=== PATIENT | female | born 1960 | race Caucasian/White ===

== ENCOUNTER 2021-09-29 08:34 | Outpatient (REF) | payer OTHER, SELFPAY | END 2021-09-29 08:35 | disposition home or self-care (01) | LOC: HO.LAB 08:34 | PROVIDERS: Visit Provider Hospitalist | DX: N39.0 Urinary tract infection, site not specified (principal) | CPT/HCPCS: 87086 ==

== ENCOUNTER 2021-11-24 14:06 | Outpatient (REF) | payer OTHER, SELFPAY ==
--- NOTE | ~2021-11-24 | MM_ITS ---
EXAMINATION: MM SCREENING DIGITAL BREAST TOMOSYNTHESIS, BILATERAL CLINICAL INFORMATION: Screening. Asymptomatic. Status post left breast lumpectomy and removal of left breast implant. Right breast reduction surgery. COMPARISON: Mammography: November 29, 2017 and studies dating back to November 25, 2015 TECHNIQUE: Digital breast tomosynthesis is performed in both the craniocaudal and mediolateral oblique views along with computer-aided detection (CAD). Synthesized 2D images are generated from the tomosynthesis. FINDINGS: There are scattered areas of fibroglandular density (ACR BI-RADS breast composition Category b). There are no new suspicious significant masses, abnormal calcifications, or other abnormalities. Postsurgical change is noted bilaterally. Status post left lumpectomy. MM/MM tomosynthesis screening BI IMPRESSION: There are no significant changes from prior study. ASSESSMENT: BI-RADS 2: Benign RECOMMENDATION: Routine annual mammography screening. This patient's information was entered into a reminder system with a target due date for their next mammogram.
== END 2021-11-24 14:07 | disposition home or self-care (01) ==
LOC: HO.MAMMO 14:06
PROVIDERS: Visit Provider Hospitalist
DX: Z12.31 Encounter for screening mammogram for malignant neoplasm of breast (principal)
CPT/HCPCS: 77063; 77067

== ENCOUNTER → 2022-07-21 12:23 | Outpatient (BNVA) | payer OTHER, SELFPAY | PROVIDERS: PCP Hospitalist; Referring Provider Hospitalist; Visit Provider Internal Medicine Gastroenterology | DX: K21.9 Gastro-esophageal reflux disease without esophagitis (principal) ==

== ENCOUNTER 2022-07-27 08:19 | Outpatient (REF) | payer OTHER, SELFPAY ==
[2022-07-27 11:11] LABS: INTERNATIONAL NORM RATIO 0.9 (0.9-1.1); Prothrombin Time 10.5 SEC (10.0-13.1)
[2022-07-27 12:03] LABS: Alanine Aminotransferase 24 U/L (0-31); Albumin Level 4.3 g/dL (3.5-5.0); Alkaline Phosphatase 134 U/L (39-117); Aspartate Amino Transferase 18 U/L (5-31); Bilirubin Direct < 0.2 mg/dL (0.0-0.5); Bilirubin Total 0.4 mg/dL (0.0-1.0); Gamma Glutamyl Transpeptidase 31 U/L (7-33); Total Protein 6.4 g/dL (6.5-8.0)
[2022-07-29 11:24] LABS: Mitochondrial Antibodies NEGATIVE (NEGATIVE)
[2022-07-29 17:24] LABS: Prot Elec - Albumin 4.1 g/dL (3.8-4.8); Prot Elec - Alpha1 0.3 g/dL (0.2-0.3); Prot Elec - Alpha2 0.7 g/dL (0.5-0.9); Prot Elec - Beta 1 0.4 g/dL (0.4-0.6); Prot Elec - Beta 2 0.3 g/dL (0.2-0.5); Prot Elec - Gamma 0.7 g/dL (0.8-1.7); Prot Elec - Total Protein 6.4 g/dL (6.1-8.1)
[2022-07-31 03:04] LABS: Angiotensin Converting Enzyme 19.9 U/L (9-67)
[2022-07-31 05:23] LABS: Alk.Phos Iso. Macrohepatic 0 % (<=0); Alk.Phos Isoenzymes Bone 36 % (28-66); Alk.Phos Isoenzymes Intest 15 % (1-24); Alk.Phos Isoenzymes Liver 49 % (25-69); Alk.Phos Isoenzymes Placental 0 % (<=0); Alk.Phos Isoenzymes Total 122 U/L (37-153)
== END 2022-07-27 08:20 | disposition home or self-care (01) ==
LOC: HO.WFDLDS 08:19
PROVIDERS: Visit Provider Internal Medicine Gastroenterology
DX: R74.8 Abnormal levels of other serum enzymes (principal)
CPT/HCPCS: 36415; 80076; 82164; 82977; 84080; 84165; 85610; 86255; 86256

== ENCOUNTER 2022-08-19 13:00 | Outpatient (REF) | payer OTHER, SELFPAY ==
--- NOTE | ~2022-08-19 | US_ITS ---
EXAMINATION: US ABDOMEN COMPLETE CLINICAL INFORMATION: Abnormal levels of other serum enzymes. COMPARISON: No prior imaging was available for comparison. TECHNIQUE: Real-time imaging of the abdominal viscera. FINDINGS: PANCREAS: Visualized portions of the pancreas are unremarkable. The pancreatic tail is obscured by bowel gas. ABDOMINAL AORTA: The proximal, mid, and distal segments are normal in caliber. INFERIOR VENA CAVA: Visualized portions are normal. LIVER: The liver is normal in size. The liver contour is normal. There is diffuse increased liver parenchymal echogenicity, consistent with infiltrative hepatocellular disease. There are several hyperechoic liver lesions the largest measuring 5.3 cm in the right hepatic lobe. There is no intrahepatic biliary duct dilatation seen. GALLBLADDER: Negative sonographic Calhoun sign. The gallbladder is physiologically distended. Multiple mobile gallstones are present. No evidence of gallbladder wall thickening or pericholecystic fluid. COMMON BILE DUCT: Normal in caliber measuring 0.6 cm in diameter. RIGHT KIDNEY: Normal. No hydronephrosis. No renal calculi or focal parenchymal lesions. The kidney measures 10.5 cm in maximum dimension. LEFT KIDNEY: 2 circumscribed echogenic subcentimeter renal lesions measuring up to 0.9 cm which may reflect angiomyolipomas. No hydronephrosis or renal calculi. The kidney measures 10.4 cm in maximum dimension. SPLEEN: A 1 cm echogenic avascular splenic lesion possibly a hemangioma. The spleen measures 12.0 cm in maximum dimension. FREE FLUID: None. US/US abdomen complete IMPRESSION: Several hypoechoic liver lesions measuring up to 5.3 cm in the right hepatic lobe, incompletely characterized sonographically. Recommend further evaluation with contrast enhanced MR abdomen. Cholelithiasis without evidence of acute cholecystitis. A 1 cm echogenic avascular splenic lesion, possibly hemangioma. Attention on follow-up MR, although this may remain too small to definitively characterize. 2 circumscribed echogenic left renal lesions which may reflect small angiomyolipomas. The report will be called to the ordering clinician by a [facility] Physician Development Trainer.
== END 2022-08-19 13:01 | disposition home or self-care (01) ==
LOC: HO.US 13:00
PROVIDERS: PCP Hospitalist; Visit Provider Internal Medicine Gastroenterology
DX: R74.8 Abnormal levels of other serum enzymes (principal)
CPT/HCPCS: 76700

== ENCOUNTER 2022-09-14 11:27 | Outpatient (REF) | payer OTHER, SELFPAY | END 2022-09-14 11:28 | disposition home or self-care (01) | LOC: HO.LNP 11:27 | PROVIDERS: Visit Provider Hospitalist | DX: N39.0 Urinary tract infection, site not specified (principal) | CPT/HCPCS: 87086; 87088; 87186 ==

== ENCOUNTER 2022-09-19 10:49 | Day surgery (SDC) | payer OTHER, SELFPAY ==
[2022-09-14 11:38] VITALS: BMI 30.4
--- NOTE | 2022-09-16 11:59 | HO.ANESPROP2 ---
Documented by User: Margarita Vasquez NP 09/16/22 12:06 HPI - Anesthesia Eval Consult details Narrative: 62yo F for Upper Endoscopy and Colonoscopy Recent UTI symptoms with C Walk In visit 09/16/22. T/C to patient, symptoms resolved PMFSH Active Problems Active Problems: All Active Problems (Updated 09/14/22 @ 09:15 by Toya Alcaraz NP) Recurrent UTI (Acute) Cavernous hemangioma of liver (Acute) Insulin resistance (Acute) GERD (gastroesophageal reflux disease) (Acute) Elevated alkaline phosphatase level (Acute) Encounter for colorectal cancer screening (Acute) Normal physical exam (Acute) History of recurrent UTIs (Acute) Screening due (Acute) UTI (urinary tract infection) (Acute) Vitamin D deficiency (Acute) Asthma (Acute) Back pain (Acute) Past Medical History Medical History Asthma Back pain Breast cancer Skin cancer Uterine cancer Family History Family History Mother Non-Hodgkin lymphoma Surgical History Surgical History (Updated 09/19/22 @ 11:14 by Mya Patel) H/O colonoscopy H/O: hysterectomy History of lumpectomy of left breast Social History Social History Household Members: Spouse Housing: House Alcohol intake: former Patient Tobacco Use Status: Never used Tobacco e-Cigarette/Vaping Use: Never Used Second Hand Smoke Exposure: No Use of substances other than those prescribed or required for medical reasons: No Are you DNR?: No Advance Directives: No Advance Directives Information Provided: Yes Current occupational status: retired Current occupational exposures/hazards: No Cognitive needs: No Hearing needs: No Vision needs: No Meds Allergies Allergy/AdvReac Type Severity Reaction Status Date / Time shellfish derived AdvReac Mild Hives Verified 09/19/22 11:17 Exam Exam Date and Time: September 16, 2022 1159 Height,Weight and Vital Signs: Height 5 ft 3 in Weight 78.018 kg Assessment and Plan Assessment Anesthesia Assessment: Chart Reviewed Documented by User: Arlene Elias MD 09/19/22 11:46 PMF Past Medical History Medical History Asthma Back pain Breast cancer Skin cancer Uterine cancer Family History Family History Mother Non-Hodgkin lymphoma Family history of problems with anesthesia: No Surgical History Surgical History (Updated 09/19/22 @ 11:14 by Mya Patel) H/O colonoscopy H/O: hysterectomy History of lumpectomy of left breast History of Problems with Anesthesia: No Social History Social History Household Members: Spouse Housing: House Alcohol intake: former Patient Tobacco Use Status: Never used Tobacco e-Cigarette/Vaping Use: Never Used Second Hand Smoke Exposure: No Use of substances other than those prescribed or required for medical reasons: No Are you DNR?: No Advance Directives: No Advance Directives Information Provided: Yes Current occupational status: retired Current occupational exposures/hazards: No Cognitive needs: No Hearing needs: No Vision needs: No Meds Allergies Allergy/AdvReac Type Severity Reaction Status Date / Time shellfish derived AdvReac Mild Hives Verified 09/19/22 11:17 Exam Airway Mallampati Class: II TM Dist: >3cm Neck ROM: Full Heart: rrr Lungs: cta Assessment and Plan Assessment Anesthesia Assessment: Anesthesia Plan Discussed Final Anesthetic Review Family History of Problems with Anesthesia: No History of Problems with Anesthesia: No NPO: Yes ASA Class: II Final Preanesthetic Review: No Changes in Pt Med Stat, Meds/Allgs Chart Reviewed and Consent Obtained/Reviewed Patient Risk: Intermediate Procedure Risk: Intermediate Anesthetic Plan Anesthetic Plan: MAC: Disposition: Standard PACU
[2022-09-19 11:17] VITALS: BP 133/76; PULSE 72; RESP 16; TEMP 36.5; O2SAT 98; BMI 29.2
[2022-09-19] MEDS: Lactated Ringers 1,000 ML 100 ML IVCONT (11:36)
--- NOTE | 2022-09-19 12:26 | MHC.SHP ---
Pre-Procedural Eval Section A Date of Service: 09/19/22 The patient is an INPATIENT: No The History & Physical has been completed within 30 days and I have reviewed it.: No Section B Chief Complaint: Screening,gerd, Details of Present Illness: colon cancer screening, GERD Relevant Family History (Specify if Yes): Yes Relevant Social History: None Present Medications: see Short Stay Collaborative assessment Medical History: Significant History (Asthma Back pain Breast cancer Skin cancer Uterine cancer) History of Previous Operations: Relevant previous surgery/procedure and date(s) (H/O: hysterectomy History of lumpectomy of left breast) Allergies: Allergies Allergy/AdvReac Type Severity Reaction Status Date / Time shellfish derived AdvReac Mild Hives Verified 09/19/22 11:17 Review of Systems Sugical H&P ROS: Negative: Constitution, Cardiovascular, Respiratory and Gastrointestinal Exam Surgical H&P Exam: Normal: Heart, Normal: Lungs, Normal: Extremities and Normal: Abdomen Plan Diagnosis/Plan: Unchanged I have reviewed the history and physical and performed a pertinent physical examination on my patient. No changes have occurred unless specified. Time Spent With Patient Time: Total time managing care of this patient today ____ minutes.
--- NOTE | 2022-09-19 12:38 | W.PM.OPN ---
Operative Note Operative Note Date of Service: 09/19/22 Narrative: FLEXIBLE TRANSORAL UPPER GASTROINTESTINAL ENDOSCOPY WITH BIOPSIES AND COLONOSCOPY TILL CECUM WITH SNARE POLYPECTOMY, SUBMUCOSAL INJECTION AND HEMOCLIP PLACEMENT Pre-op diagnosis: Colon cancer screening, hx of colon polyps, GERD Post-op diagnosis:?GERD, gastritis, colon polyps, diverticulosis, hemorrhoids Endoscopist:? Jasmina Mueller MD Anesthesia:?MAC UPPER ENDOSCOPY Consent: Indications for the procedure and potential complications of bleeding, perforation, reaction to medications and missed diagnosis were discussed with the patient and informed consent was obtained. Instrument: Olympus GIF H 190 mid size upper endoscope Monitoring: Vital signs and clinical assessment, continuous EKG monitoring, Pulse oximetry, Carbon Dioxide monitoring and blood pressure monitoring were done throughout the procedure. Procedure: The patient was placed in the left lateral decubitis position and pre-procedure medications were administered and a bite block was placed. The endoscope was inserted into the mouth and advanced under direct vision to the third part of duodenum. A careful inspection was made as the upper endoscope was withdrawn including a retroflexed examination of the proximal stomach; Findings and interventions are described below. Findings: Larynx: Normal Esophagus: GE junction at 35 cms. No Montero's. Edematous folds just distal to the GEJ on the gastric side likely due to mild esophagitis - biopsied. Stomach: Mild diffuse gastric erythema with a few linear erosions in the antrum. Biopsies were obtained. Grade 2 flap valve on retroflexed examination of the cardia. Duodenum: Normal bulb and descending duodenum. Biopsies were obtained from 3rd part of the duodenum to check for celiac sprue Intervention: Biopsies as noted above COLONOSCOPY PROCEDURE NOTE Consent: Indications for the procedure and potential complications of bleeding, perforation, reaction to medications and missed diagnosis were discussed with the patient and informed consent was obtained. Instrument: Olympus PCF H 190 L variable stiffness pediatric colonoscope Monitoring: Vital signs and clinical assessment, intermittent blood pressure monitoring, continuous EKG monitoring, Pulse oximetry and Carbon Dioxide monitoring were done throughout the procedure. Colon withdrawl time was 30 minutes. Procedure: The patient was placed in the left lateral decubitis position and pre-procedure medications were administered. After a digital rectal examination of the ano-rectum, the video colonoscope was inserted into the rectum and advanced through the colon to the cecum. The colonoscope was slowly withdrawn in a retrograde panoramic fashion and the colon mucosa was carefully examined including a retroflexed view of the rectum. Findings and interventions are described below. Procedure Difficulty: colon was long and tortuous and there was some loop formation - no maneuvers were required Findings: Terminal Ileum: Not evaluated Cecum: Normal Ascending Colon: A 3 x 2.5 cms flat polyp in the distal AC - raised with 5 cc of [place] and removed with a hot stiff snare. Polypectomy site was closed with 1 hemoclip and marked with Keri ink Transverse Colon: A 3 x 2.5 cms flat polyp at 110 cms raised with 5 cc of [place] and removed with a hot stiff snare. Polypectomy site was closed with 1 hemoclip in marked with Keri ink A 2nd 3.5 x 3 cms flat polyp at 110 cms. Polyp raised with 8 cc of [place]view and removed piecemeal with a stiff snare. Polypectomy site was closed with 2 hemoclips and marked by Keri ink Descending Colon: Normal Sigmoid Colon: Moderate diverticulosis Rectum: Normal Ano-rectum: Moderate internal hemorrhoids Colon preparation: Good Impression and Post Procedure Diagnosis: Endoscopy Findings: STOMACH: Mild diffuse gastric erythema with a few linear erosions in the antrum. Biopsies were obtained. DUODENUM: Normal - biopsied to check for celiac sprue Colonoscopy Findings: Three large sized polyps removed Moderate diverticulosis seen in the sigmoid colon Moderate hemorrhoids on retroflexed exam. Plan: Await pathology results Patient has an appointment on 10/20/22 in the GI Clinic with Jasmina Mueller M.D. Repeat Colonoscopy interval based on path results - in 6 months to check polypectomy site if polyps are adenomatous and 5 years if polyps are hyperplastic (due to a hx of colon polyps). Above findings were reviewed with the patient and GERD, colon polyps and diverticulosis handouts were given in the discharge area
[2022-09-19 13:45] VITALS: BP 103/56; PULSE 81; RESP 20; TEMP 36.6; O2SAT 96
[2022-09-19 14:00] VITALS: BP 104/57; PULSE 76; RESP 20; O2SAT 99
[2022-09-19 14:15] VITALS: BP 115/59; PULSE 78; RESP 16; TEMP 36.4; O2SAT 99
--- NOTE | 2022-09-19 16:49 | PM.OP ---
Brief Operative Note Date of Service: 09/19/22 Pre-op diagnosis: Colon cancer screening, GERD Post-op diagnosis: other (GERD, gastritis, colon polyps, diverticulosis, hemorrhoids) Procedure: FLEXIBLE TRANSORAL UPPER GASTROINTESTINAL ENDOSCOPY WITH BIOPSIES AND COLONOSCOPY TILL CECUM WITH SNARE POLYPECTOMY, SUBMUCOSAL INJECTION AND HEMOCLIP PLACEMENT Surgeon: Jasmina Mueller MD Anesthesia: MAC Was an Film Developing Machine Operator used for this Procedure?: Yes Film Developing Machine Operator: Zainab Alonso Estimated blood loss (mL): 2 Pathology: other (A. small bowel bxs, R/O celiac B. gastric antrum bxs, R/O H, pylori C. gastric body bxs D. G-E junction bxs, R/O Montero's esophagus E. transverse colon polyp F. ascending col) Condition: stable Disposition: PACU
== END 2022-09-19 14:43 | disposition home or self-care (01) ==
PROVIDERS: PCP Hospitalist; Visit Provider Internal Medicine Gastroenterology
PROC: (CPT 45385; principal; 2022-09-19 12:35)
DX: Z12.11 Encounter for screening for malignant neoplasm of colon (principal); Z86.010 Personal history of colon polyps; D12.2 Benign neoplasm of ascending colon; D12.3 Benign neoplasm of transverse colon; K57.30 Diverticulosis of large intestine without perforation or abscess without bleeding; K64.8 Other hemorrhoids; K21.9 Gastro-esophageal reflux disease without esophagitis; K29.50 Unspecified chronic gastritis without bleeding; J45.909 Unspecified asthma, uncomplicated; M54.9 Dorsalgia, unspecified; Z85.3 Personal history of malignant neoplasm of breast; Z85.828 Personal history of other malignant neoplasm of skin; Z85.42 Personal history of malignant neoplasm of other parts of uterus; Z79.899 Other long term (current) drug therapy; Z79.84 Long term (current) use of oral hypoglycemic drugs
CPT/HCPCS: 45385; 45381; 43239; 88305; 88342

== ENCOUNTER 2022-10-24 13:35 | Outpatient (REF) | payer OTHER, SELFPAY ==
--- NOTE | ~2022-10-24 | MR_ITS ---
EXAMINATION: MRI ABDOMEN WITH AND WITHOUT CONTRAST CLINICAL INFORMATION: D18.03 - Hemangioma of intra-abdominal structures COMPARISON: 08/19/2022 ultrasound TECHNIQUE: Multiple routine MRI sequences through the abdomen were obtained on a high-field 1.5Tesla MRI. Pre-and postcontrast images with 7.5 mL of Gadavist intravenous contrast were obtained. This included a dynamic contrast-enhanced technique. FINDINGS: Lung bases: The visualized lung bases are unremarkable. Fat-containing right-sided Bochdalek diaphragmatic hernia noted.. Small hiatal hernia. Liver: The liver demonstrates diffuse fatty infiltration liver with areas of focal fatty sparing surrounding diffusely T2 bright peripheral nodular enhancing hemangiomas that demonstrate gradual progressive enhancement this includes a 5.1 cm hemangioma in the lateral segment 2 and 3 of the liver, the 2.8 cm subcapsular hemangioma in segment 8 the liver laterally, the tiny 0.9 cm hemangioma in the posterior segment 7, the 3.5 cm hemangioma in the central segment 7, the 1.1 cm hemangioma centrally in segment 3, the 2.9 cm hemangioma in segment 4 abutting the falciform ligament and additional scattered subcentimeter T2 bright probable hemangiomas in the inferior right lobe the liver. I do not appreciate any suspicious hepatic lesions otherwise. No biliary ductal dilatation. Gallbladder: Multiple gallstones seen within the partially contracted but otherwise unremarkable gallbladder. No gallbladder wall thickening or pericholecystic inflammatory changes. Pancreas: Pancreas is homogeneous in signal. No pancreatic ductal dilatation or obstruction. No peripancreatic inflammatory changes or fluid. Spleen: T2 bright tiny splenic cysts incidentally noted Adrenals: Unremarkable Kidneys: Kidneys are normal in size, shape, and signal. No suspicious renal mass lesion seen. No hydronephrosis or perinephric edema. Other: No bulky adenopathy MR/MR abdomen wo/w con IMPRESSION: Diffuse fatty infiltration of the liver with multiple hepatic hemangiomas as described above. I do not appreciate any suspicious hepatic lesions otherwise.
== END 2022-10-24 13:36 | disposition home or self-care (01) ==
LOC: HO.MRI 13:35
PROVIDERS: PCP Hospitalist; Visit Provider Internal Medicine Gastroenterology
DX: D18.03 Hemangioma of intra-abdominal structures (principal)
CPT/HCPCS: 74183; A9585

== ENCOUNTER 2022-11-28 10:21 | Outpatient (REF) | payer OTHER, SELFPAY ==
--- NOTE | ~2022-11-28 | MM_ITS ---
EXAMINATION: MM SCREENING DIGITAL BREAST TOMOSYNTHESIS, BILATERAL CLINICAL INFORMATION: Status post left breast lumpectomy, removal of left breast implant, and contralateral right reduction surgery. Due for yearly. COMPARISON: Mammography: 11/24/2021; outside mammography 11/26/2020, 11/26/2019, 10/26/2018 ([place], [place]). TECHNIQUE: Digital breast tomosynthesis is performed in both the craniocaudal and mediolateral oblique views along with computer-aided detection (CAD). Synthesized 2D images are generated from the tomosynthesis. FINDINGS: There are scattered areas of fibroglandular density (ACR BI-RADS breast composition Category b). There is minor bilateral scarring similar to prior exam. There is no developing density or significant mass or interval architectural abnormality. No abnormal calcifications. The axilla are unremarkable. No significant changes. MM/MM tomosynthesis screening BI IMPRESSION: No mammographic evidence of malignancy. ASSESSMENT: BI-RADS 2: Benign RECOMMENDATION: Routine annual mammography screening. This patient's information was entered into a reminder system with a target due date for their next mammogram.
== END 2022-11-28 10:22 | disposition home or self-care (01) ==
LOC: HO.MAMMO 10:21
PROVIDERS: PCP Hospitalist; Visit Provider Hospitalist
DX: Z12.31 Encounter for screening mammogram for malignant neoplasm of breast (principal)
CPT/HCPCS: 77063; 77067

== ENCOUNTER 2023-01-04 08:53 | Outpatient (AMB) | payer OTHER, SELFPAY ==
--- NOTE | 2023-01-04 08:55 | MHC.PC.OV ---
Vital Signs 01/04/23 08:57 Height 5 ft 3 in Weight 167 lb 4 oz BMI 29.6 BP 98/64 Blood Pressure Location Lt brachial Position Sitting Respiration 12 Pulse 91 Pulse Source Pulse Oximeter Temp 97.9 F Temp Source Temporal Artery Scan Pulse Oximetry (%) 98 Oxygen Delivery Method Room Air Intake Visit Reasons: 4 wks wt mgmt Intake Note: Patient needs a refill on Ozempic. 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 Accompanied by: Self / Same As Patient Allergies shellfish derived Adverse Reaction (Mild, Verified 01/04/23 09:15) Hives Medication List - Last Reconciled 01/04/23 by Adrian Rocha CNP albuterol sulfate 90 mcg/actuation 1 puff inhalation Q4H PRN ergocalciferol (vitamin D2) 1,250 mcg PO QWEEK 1 month famotidine 20 mg PO BEDTIME 30 days metformin 500 mg PO BID semaglutide (Ozempic) 0.25 mg (0.4 mL) subcut QWEEK 4 weeks Tobacco use date assessed: 01/04/23 Dental Screening Dental Screen Date: 01/04/23 Did you have a dental visit in the last 12 months?: Yes Did you have a dental problem in the last 6 months where you did not have access to dental care?: No Was dental information given to patient?: Patient has dentist HPI HPI Comments History of Present Illness Details 62-year-old female presents for with management follow-up. She requested with management during her last visit. She started using Ozempic last month. She is happy that she has lost 3 lb since starting Ozempic. Her goal is to lose 20-30 lb. She swims and walks for exercise. No acute symptoms today. [facility] Medical History Asthma Back pain Breast cancer Skin cancer Type 2 diabetes mellitus Uterine cancer Surgical History H/O colonoscopy H/O: hysterectomy History of esophagogastroduodenoscopy (EGD) History of lumpectomy of left breast Family History Mother Non-Hodgkin lymphoma Social History Household Members: Spouse Housing: House Alcohol intake: former Patient Tobacco Use Status: Never used Tobacco e-Cigarette/Vaping Use: Never Used Second Hand Smoke Exposure: No service: No Current occupational status: retired Current occupational exposures/hazards: No Cognitive needs: No Hearing needs: No Vision needs: No Questionnaire Thrive Questionnaire Date Thrive assessed: 09/05/22 JUDY-7 AMB Questionnaire JUDY-7 Date JUDY - 7 assessed: 09/05/22 Source: Developed by Drs. Silverio Dooley, Yani Hull, Adonis Umanzor and colleagues, with an educational emma from [employer]. Review of Systems Const Details: Const Denies chills, Denies fatigue, Denies fever(s), Denies headache(s) and Denies weakness ENT Denies dizziness and Denies headache(s) Card Denies chest pain, Denies lightheadedness, Denies dyspnea and Denies other (Palpitations) Resp Denies cough, Denies dyspnea, Denies wheezing and Denies other ( shortness of breath) GI Denies abdominal pain, Denies melena, Denies hematochezia, Denies change in bowel habits, Denies dyspepsia and Denies nausea Denies hematuria and Denies dysuria Musc Denies abnormal gait, Denies myalgias, Denies arthralgias, Denies numbness and Denies tingling Skin/Breast Denies rash, Denies unusual bruising and Denies wounds Neuro Denies abnormal gait, Denies dizziness, Denies headache(s), Denies memory loss, Denies numbness, Denies Sensory deficit (Neuro), Denies tingling and Denies weakness Psych Denies anxiety and Denies depression Endo Denies fatigue Aller/Immun Denies wheezing Physical exam (Primary Care) Vital Signs: Last Vital Signs Temp 97.9 F 01/04/23 08:57 Pulse 91 01/04/23 08:57 Resp 12 01/04/23 08:57 BP 98/64 01/04/23 08:57 Pulse Ox 98 01/04/23 08:57 Oxygen Delivery Method Room Air 01/04/23 08:57 BMI result Body Mass Index 29.6 Tobacco/Smoking Status: Tobacco use Status Tobacco use date assessed 01/04/23 01/04/23 09:05 Patient Tobacco Use Status Never used Tobacco 01/04/23 09:05 e-Cigarette/Vaping Use Never Used 01/04/23 09:05 Thrive Assessment: Date of Thrive Assessment Date Thrive assessed 09/05/22 01/04/23 09:05 Const Other: General: no acute distress and well developed Nutritional Appearance: well nourished Orientation/consciousness: patient oriented x3 HENMT Head: Yes normocephalic and Yes atraumatic Eyes General: appearance normal, both eyes and all related structures Pupils: Equal, round and reactive pupils present EOM: EOMs intact bilaterally Resp Effort & Inspection: normal respiratory effort Auscultation: clear to auscultation bilaterally Cardio Rate: regular rate Rhythm: regular rhythm Heart sounds: S1 normal heart sound present, S2 normal heart sound present, no gallops, no murmurs and no rubs GI Palpation (GI): No Abdominal aortic bruit present, Soft to palpation, nontender, No hepatosplenomegaly present and No Rebound tenderness present Auscultation: normal bowel sounds General: Yes no CVA tenderness Back/Spine/Pelvis Back: no CVA tenderness Cervical Spine: cervical ROM normal and No Cervical spine tenderness Thoracic/Lumbar Spine: thoraco-lumbar ROM normal, No pain with thoraco-lumbar ROM, No thoracic spinal tenderness and No lumbar spinal tenderness Extrem General: Yes normal to inspection, No edema and No calf tenderness Skin General: warm and dry. Normal skin color. Normal skin turgor Lesions: no lesions Rashes: no rashes Trauma: no lacerations or abrasions Wounds: no wounds Nails: normal Neuro General: patient oriented x3, gait normal and no focal neuro deficit Cranial nerves: Yes Equal, round and reactive pupils present Cognition (Neuro): normal cognition Gait exam (Neuro): Normal gait present Sensory Exam: No Sensory deficit (Neuro) Psych Affect: normal affect Assessment and Plan Assessment & Plan (1) Encounter for weight management: Code(s): Z76.89 - Persons encountering health services in other specified circumstances Plan: She lost 3 lb since statin Ozempic Continue with current dose as prescribed Routine exercise encouraged Follow-up in 3 weeks or return sooner with concerns or symptoms She has an appointment schedule for physical exam next month. Labs ordered Verbalized understanding and agreed with treatment plan (2) Laboratory tests ordered as part of a complete physical exam (CPE): Code(s): Z00.00 - Encounter for general adult medical examination without abnormal findings Plan: Fasting labs ordered as part of a complete physical exam. Advised to fast for at least 10 hours before getting labs drawn. May drink water Verbalized understanding and agreed with treatment plan. Orders: Orders Complete Blood Count Auto Diff Today Z00.00 - Encounter for general adult medical examination without abnormal findings Comprehensive [place]. Panel Fast Today Z00.00 - Encounter for general adult medical examination without abnormal findings Lipid Panel Today Z00.00 - Encounter for general adult medical examination without abnormal findings TSH reflex Free T4 Today Z00.00 - Encounter for general adult medical examination without abnormal findings Vitamin D 25-OH Total Today Z00.00 - Encounter for general adult medical examination without abnormal findings UA CC w/rflx Micro + Cult Today Z00.00 - Encounter for general adult medical examination without abnormal findings Coding Level of Care Code Est Pt Level 3 (50182) Diagnoses Encounter for weight management Z76.89 Laboratory tests ordered as part of a complete physical exam (CPE) Z00.00 Time Spent (min) 25
[2023-01-04 08:57] VITALS: BP 98/64; PULSE 91; RESP 12; TEMP 36.6; O2SAT 98; BMI 29.6
== END 2023-01-04 09:35 | disposition home or self-care (01) ==
PROVIDERS: PCP Hospitalist; Visit Provider Nurse Practitioner Family
DX: Z76.89 Persons encountering health services in other specified circumstances (principal); Z00.00 Encounter for general adult medical examination without abnormal findings
CPT/HCPCS: 99213

== ENCOUNTER 2023-01-16 15:21 | Outpatient (AMB) | payer OTHER, SELFPAY ==
--- NOTE | 2023-01-16 15:27 | A.OFFPC_ITS ---
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 Required: No Accompanied by: Self / Same As Patient Allergies shellfish derived Adverse Reaction (Mild, Verified 01/16/23 15:48) Hives Medication List - Last Reconciled 01/16/23 by Adrian Rocha CNP albuterol sulfate 90 mcg/actuation 1 puff inhalation Q4H PRN ergocalciferol (vitamin D2) 1,250 mcg PO QWEEK 1 month famotidine 20 mg PO BEDTIME 30 days metformin 500 mg PO BID semaglutide (Ozempic) 0.25 mg (0.4 mL) subcut QWEEK 4 weeks Tobacco use date assessed: 01/04/23 Dental Screening Dental Screen Date: 01/16/23 Did you have a dental visit in the last 12 months?: Yes Did you have a dental problem in the last 6 months where you did not have access to dental care?: No Was dental information given to patient?: Patient has dentist HPI HPI Comments History of Present Illness Details 62-year-old female presents for with management follow-up.She requested with management during her last visit.? She is on Ozempic for weight management. She lost an additional 3 lb since her last visit. She has lost a total of 6 lb. Her goal is to lose 20-30 lb. She swims and walks for exercise. She notes she has been eating healthy. No acute symptoms today. [facility] Medical History Asthma Back pain Breast cancer Skin cancer Type 2 diabetes mellitus Uterine cancer Surgical History H/O colonoscopy H/O: hysterectomy History of esophagogastroduodenoscopy (EGD) History of lumpectomy of left breast Family History Mother Non-Hodgkin lymphoma Social History Household Members: Spouse Housing: House Alcohol intake: former Patient Tobacco Use Status: Never used Tobacco e-Cigarette/Vaping Use: Never Used Second Hand Smoke Exposure: No service: No Current occupational status: retired Current occupational exposures/hazards: No Cognitive needs: No Hearing needs: No Vision needs: No Questionnaire Thrive Questionnaire Date Thrive assessed: 09/05/22 JUDY-7 AMB Questionnaire JUDY-7 Date JUDY - 7 assessed: 09/05/22 Source: Developed by Drs. Silverio Dooley, Yani Hull, Adonis Umanzor and colleagues, with an educational emma from [employer]. Review of Systems Const Details: Const Denies chills, Denies fatigue, Denies fever(s), Denies headache(s) and Denies weakness ENT Denies dizziness and Denies headache(s) Card Denies chest pain, Denies lightheadedness, Denies dyspnea and Denies other (Palpitations) Resp Denies cough, Denies dyspnea, Denies wheezing and Denies other ( shortness of breath) GI Denies abdominal pain, Denies melena, Denies hematochezia, Denies change in bowel habits, Denies dyspepsia and Denies nausea Denies hematuria and Denies dysuria Musc Denies abnormal gait, Denies myalgias, Denies arthralgias, Denies numbness and Denies tingling Skin/Breast Denies rash, Denies unusual bruising and Denies wounds Neuro Denies abnormal gait, Denies dizziness, Denies headache(s), Denies memory loss, Denies numbness, Denies Sensory deficit (Neuro), Denies tingling and Denies weakness Psych Denies anxiety and Denies depression Endo Denies fatigue Aller/Immun Denies wheezing Physical exam (Primary Care) Vital Signs: Last Vital Signs Temp 98 F 01/16/23 15:28 Pulse 85 01/16/23 15:28 Resp 12 01/16/23 15:28 BP 124/70 01/16/23 15:28 Pulse Ox 97 01/16/23 15:28 Oxygen Delivery Method Room Air 01/16/23 15:28 BMI result Body Mass Index 29.0 Tobacco/Smoking Status: Tobacco use Status Tobacco use date assessed 01/04/23 01/16/23 15:37 Patient Tobacco Use Status Never used Tobacco 01/16/23 15:37 e-Cigarette/Vaping Use Never Used 01/16/23 15:37 Thrive Assessment: Date of Thrive Assessment Date Thrive assessed 09/05/22 01/16/23 15:37 Const Other: General: no acute distress and well developed Nutritional Appearance: well nourished Orientation/consciousness: patient oriented x3 [facility] Head: Yes normocephalic and Yes atraumatic Eyes General: appearance normal, both eyes and all related structures Pupils: Equal, round and reactive pupils present EOM: EOMs intact bilaterally Resp Effort & Inspection: normal respiratory effort Auscultation: clear to auscultation bilaterally Cardio Rate: regular rate Rhythm: regular rhythm Heart sounds: S1 normal heart sound present, S2 normal heart sound present, no gallops, no murmurs and no rubs GI Palpation (GI): No Abdominal aortic bruit present, Soft to palpation, nontender, No hepatosplenomegaly present and No Rebound tenderness present Auscultation: normal bowel sounds General: Yes no CVA tenderness Back/Spine/Pelvis Back: no CVA tenderness Cervical Spine: cervical ROM normal and No Cervical spine tenderness Thoracic/Lumbar Spine: thoraco-lumbar ROM normal, No pain with thoraco-lumbar ROM, No thoracic spinal tenderness and No lumbar spinal tenderness Extrem General: Yes normal to inspection, No edema and No calf tenderness Skin General: warm and dry. Normal skin color. Normal skin turgor Lesions: no lesions Rashes: no rashes Trauma: no lacerations or abrasions Wounds: no wounds Nails: normal Neuro General: patient oriented x3, gait normal and no focal neuro deficit Cranial nerves: Yes Equal, round and reactive pupils present Cognition (Neuro): normal cognition Gait exam (Neuro): Normal gait present Psych Affect: normal affect Assessment and Plan Assessment & Plan (1) Encounter for weight management: Code(s): Z76.89 - Persons encountering health services in other specified circumstances Plan: She lost 3 lb since her last visit. She has lost a total of 6 lb Continue with current dose of Ozempic as prescribed Routine exercise and healthy diet encouraged Advised to get fasting blood work done before next visit Follow-up in 1 month for a complete physical exam or return sooner with concerns or symptoms Verbalized understanding and agreed with treatment plan Medications: Refilled semaglutide (Ozempic) week 1-4 0.25 mg (0.4 mL) subcut QWEEK 4 weeks 1.6 mL 0RF Coding Level of Care Code Est Pt Level 3 (77525) Diagnoses Encounter for weight management Z76.89 Time Spent (min) 25
[2023-01-16 15:28] VITALS: BP 124/70; PULSE 85; RESP 12; TEMP 36.6; O2SAT 97; BMI 29.0
== END 2023-01-16 16:06 | disposition home or self-care (01) ==
PROVIDERS: PCP Hospitalist; Visit Provider Nurse Practitioner Family
DX: Z76.89 Persons encountering health services in other specified circumstances (principal)
CPT/HCPCS: 99213

== ENCOUNTER 2023-01-24 07:15 | Outpatient (REF) | payer OTHER, SELFPAY ==
[2023-01-24 11:23] LABS: MANUAL DIFF FLAG NO
[2023-01-24 11:49] LABS: Basophils Absolute Auto 0.1 X10*3/uL (0.0-0.2); Eosinophils Absolute Auto 0.2 X10*3/uL (0.0-0.4); Eosinophils Percent Auto 2.4 % (0-4); Hematocrit 43.8 % (37.0-47.0); Hemoglobin 14.5 g/dl (12.0-16.0); Imm Gran Abs Auto 0.01 X10*3/uL (0.00-0.03); Imm Gran Pct Auto 0.1 % (0.0-0.4); Lymphocytes Absolute Auto 2.1 X10*3/uL (1.2-4.9); Lymphocytes Percent Auto 31.1 % (20-40); Mean Corpuscular HGB Conc 33.1 g/dl (31.0-35.0); Mean Corpuscular Hemoglobin 30.1 pg (27.0-33.0); Mean Corpuscular Volume 90.9 fL (80.0-98.0); Mean Platelet Volume 9.7 fL (9.4-12.3); Monocytes Absolute Auto 0.8 X10*3/uL (0.1-1.2); Monocytes Percent Auto 11.9 % (2-11); Neutrophils Absolute Auto 3.6 x10*3/uL (2.0-8.3); Neutrophils Percent Auto 53.5 % (45-73); Platelet Count 264 X10*3/uL (160-400); Red Blood Count 4.82 X10*6/uL (4.20-5.50); Red Cell Distribution Width 12.7 % (11.0-16.0); White Blood Count 6.7 X10*3/uL (4.8-10.8)
[2023-01-24 12:32] LABS: Appearance Urine Clear; Color Urine Yellow; Glucose Urine UA Negative (Negative); Leukocyte Esterase Urine Trace (Negative); Nitrite Urine Negative (Negative); PH 5.5 (5.0-9.0); Specific Gravity - Urine 1.015 (1.005-1.025); UMIC TRIGGER UA YES; UMIC TRIGGER UACC YES; Urine Blood Negative (Negative); Urine Ketones Negative (Negative); Urine Protein Negative (Neg-Trace)
[2023-01-24 12:49] LABS: Bacteria Urine None Seen (None Seen); Calcium Oxalate Crystals Urine Present; Hyaline Casts Urine 0-2 /LPF (0-2); RBC Urine 0-2 /HPF (0-2); Squamous Epithelial Cell Urine 0-2 /HPF (0-2); WBC Urine 0-5 /HPF (0-5)
[2023-01-24 12:52] LABS: Alanine Aminotransferase 28 U/L (0-31); Albumin Level 4.3 g/dL (3.5-5.0); Alkaline Phosphatase 122 U/L (39-117); Anion Gap 11 (12-20); Aspartate Amino Transferase 21 U/L (5-31); Bilirubin Total 0.6 mg/dL (0.0-1.0); Blood Urea Nitrogen 14 mg/dL (9-16); Calcium 9.7 mg/dL (8.4-10.2); Carbon Dioxide 28 mmol/L (22-29); Chloride 108 mmol/L (96-108); Cholesterol 194 mg/dL; Estimated Glomerular Filt Rate > 60; Glucose Fasting 82 mg/dL (60-99); HDL Cholesterol 46 mg/dL; LDL Cholesterol Calculated 109 mg/dl; Potassium 4.6 mmol/L (3.3-5.1); Sodium 142 mmol/L (135-145); Total Protein 6.7 g/dL (6.5-8.0); Triglycerides 196 mg/dL
[2023-01-24 13:11] LABS: TSH reflex Free T4 0.31 uIU/mL (0.32-4.0); Vitamin D 25-OH Total 49.3 ng/mL (>30)
[2023-01-24 13:53] LABS: Free T4 (Free Thyroxine) 0.98 ng/dL (0.71-1.85)
== END 2023-01-24 07:16 | disposition home or self-care (01) ==
LOC: HO.WFDLDS 07:15
PROVIDERS: Hospitalist; Visit Provider Nurse Practitioner Family
DX: Z00.00 Encounter for general adult medical examination without abnormal findings (principal)
CPT/HCPCS: 36415; 80053; 80061; 81001; 81003; 82306; 84439; 84443; 85025

== ENCOUNTER 2023-01-26 10:12 | Outpatient (AMB) | payer OTHER, SELFPAY ==
--- NOTE | 2023-01-26 10:20 | MHC.OFFVIS ---
Intake Vital Signs 01/26/23 10:21 Height 5 ft 3 in Weight 159 lb BMI 28.2 BP 121/56 L Blood Pressure Location Lt brachial Position Sitting Pulse 78 Intake Visit Reasons: 3 months f/u Intake Note: Patient follow up for EGD/Colonoscopy results. Patient denies any GI issues. 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 Pt reports a hx of pre diabetes, gallstones, suspected insulin resistance, NAFL, hepatic steatosis, elevated alkaline phosphatase and large cavernous hemangiomas in the liver She has a history of breast and uterine cancer Outside labs showed elevated glucose, AP, CRP and borderline increase in Insulin and Hb A1C LABS IN [facility] : 12/2021 outside labs showed normal CBC, TSH and iron studies. LFTs showed normal LFTs except mild increase in alkaline phosphatase to 141, GGT was normal at 29 03/2022 AP increased to 157 (normal 35 - 104) MADY was negative Vitamin D was 40.6 Ferritin 182 IMAGING STUDIES:? 08/2022 abd us showed: Several hypoechoic liver lesions measuring up to 5.3 cm in the right hepatic lobe, incompletely characterized sonographically. Recommend further evaluation with contrast enhanced MR abdomen. ? Cholelithiasis without evidence of acute cholecystitis. ? A 1 cm echogenic avascular splenic lesion, possibly hemangioma. Attention on follow-up MR, although this may remain too small to definitively characterize. ? 2 circumscribed echogenic left renal lesions which may reflect small angiomyolipomas. ? ENDOSCOPIC STUDIES: 09/19/22 EGD AND COLON SHOWED: Endoscopy Findings: STOMACH: Mild diffuse gastric erythema with a few linear erosions in the antrum. Biopsies were obtained. DUODENUM: Normal - biopsied to check for celiac sprue Colonoscopy Findings: Three large sized polyps removed Moderate diverticulosis seen in the sigmoid colon Moderate hemorrhoids on retroflexed exam. Plan: Repeat Colonoscopy interval based on path results - in 6 months to check? polypectomy site if polyps are adenomatous and 5 years if polyps are hyperplastic (due to a hx of colon polyps). TODAY'S VISIT: Pt was seeing a Director Digital Communications (Dr Maher) and was treated for leaky gut. Stopped sugars, dairy and gluten from 01/2022 to 05/2022 and lost 5 lbs without improvement in labs She was started on metformin Pt is 3 years over due for a colonoscopy (last colonoscopy was in 2014) Pt is a breast cancer survivor - diagnosed in 2011 (4 surgeries for the breast) Diagnosed with uterine cancer 5 yrs later. Elevated LFTs for several yrs (2011) and diagnosed with DIETZ and Has gained 25 lbs and notes burning sensation in the chest and bloating. Denies acid regurgitation or dysphagia Has been working out Patient denies symptoms of nausea, vomiting.? Denies recent change in bowel habits, constipation, black stools or rectal bleeding. Sometimes has softer stools - 1-2 times a day, Patient denies major cardiac or pulmonary problems, loud snoring or sleep apnea. Mild snoring. Barely drink - 1/2 glass of wine /week Denies smoking. Denies problems with anesthesia in the past. Denies being on chronic anticoagulation. Patient denies known family history of colon polyps, colon cancer or other GI malignancies. 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 Hemorrhoids were detected. Repeat colonoscopy was advised in 5 years. PAST GI HISTORY BY REVIEW OF MEDICAL RECORDS: Outside labs were reviewed [facility] Medical History Asthma Back pain Breast cancer Skin cancer Type 2 diabetes mellitus Uterine cancer Surgical History H/O colonoscopy H/O: hysterectomy History of esophagogastroduodenoscopy (EGD) History of lumpectomy of left breast Family History Mother Non-Hodgkin lymphoma Social History Household Members: Spouse Housing: House Alcohol intake: former Patient Tobacco Use Status: Never used Tobacco e-Cigarette/Vaping Use: Never Used Second Hand Smoke Exposure: No service: No Current occupational status: retired Current occupational exposures/hazards: No Cognitive needs: No Hearing needs: No Vision needs: No Review of Systems Const All systems reviewed & are unremarkable except as noted in HPI and below Physical Exam Vital Signs: Last Vital Signs Pulse 78 01/26/23 10:21 BP 121/56 L 01/26/23 10:21 BMI result Body Mass Index 28.2 Const General: healthy appearing and no acute distress Nutritional Appearance: overweight Orientation/consciousness: patient oriented x3 Limitations: no limitations HEENT Head: Yes normal to inspection Ears: hearing grossly normal bilaterally Eyes Sclerae: sclerae normal Pupils: Equal, round and reactive pupils present Neck Neck: Yes normal visual inspection Chest Chest palpation & inspection: normal inspection of the chest Resp Effort & Inspection: normal respiratory effort Auscultation: clear to auscultation bilaterally Cardio Palpation: normal PMI Rate: regular rate Rhythm: regular rhythm Heart sounds: S1 normal heart sound present, S2 normal heart sound present and no murmurs GI Palpation (GI): Soft to palpation, nontender and No hepatosplenomegaly present Auscultation: normal bowel sounds Rectal Exam - Female: deferred Skin General skin exam: no rashes or lesions noted Neuro General: patient oriented x3, gait normal and moves all extremities Cranial nerves: Yes Equal, round and reactive pupils present Psych Appearance: grossly normal Mental Status: mental status grossly normal Assessment & Plan Assessment & Plan (1) Vitamin D deficiency: Code(s): E55.9 - Vitamin D deficiency, unspecified (2) Elevated alkaline phosphatase level: Code(s): R74.8 - Abnormal levels of other serum enzymes (3) GERD (gastroesophageal reflux disease): Code(s): K21.9 - Gastro-esophageal reflux disease without esophagitis (4) Cavernous hemangioma of liver: Code(s): D18.03 - Hemangioma of intra-abdominal structures (5) Encounter for colorectal cancer screening: Code(s): Z12.11 - Encounter for screening for malignant neoplasm of colon; Z12.12 - Encounter for screening for malignant neoplasm of rectum (6) History of colon polyps: Comment: 09/2022 colonoscopy was performed and three large sessile serrated polyps were removed. Repeat colonoscopy scheduled on 04/14/23 to check polypectomy sites in the ascending and transverse colon Code(s): Z86.010 - Personal history of colonic polyps Plan 62 YF with pre diabetes, gallstones, suspected insulin resistance, NAFL, hepatic steatosis, elevated alkaline phosphatase and large cavernous hemangiomas in the liver referred to GI for evaluation of elevated LFTs (since 2011) and to schedule a screening colonoscopy (fu of a small adenomatous colon polyp). Isolated elevation of ALK P can be due to PBC, PSC, related to medications or from non-hepatic source. Pt reports burning sensation in the chest and bloating - will check for celiac sprue Pt was advised repeat labs. Start famotidine 20 mg at bedtime for upper GI symptoms. 09/2022 upper endoscopy and colonoscopy were performed and results as noted above Three large sessile serrated polyps were removed during colonoscopy Repeat colonoscopy in Mar, 2023 to check polypectomy sites in the ascending and transverse colon - scheduled on 04/14/23 FROM UPTODATE: In patients with intrahepatic cholestasis, antimitochondrial antibodies (AMA), antinuclear antibodies, and antismooth muscle antibodies should be checked. If present, AMA are highly suggestive of PBC, and a liver biopsy may be considered to confirm the diagnosis. If AMA are absent, additional testing includes: ?MRCP to look for evidence of primary sclerosing cholangitis ?Testing for hepatitis A, B, C, and E ?Testing for Nader-Wren virus and cytomegalovirus If the above tests are negative and the alkaline phosphatase is persistently more than two times the upper limit of normal for more than six months, we obtain a liver biopsy. A liver biopsy may reveal evidence of an infiltrative disease (eg, sarcoidosis, malignancy) or other causes of cholestasis, such as vanishing bile duct syndrome and idiopathic adulthood bile ductopenia. If the alkaline phosphatase is less than two times the upper limit of normal, all of the other liver biochemical tests are normal, and the patient is asymptomatic, we suggest observation alone, since further testing is unlikely to influence managem Medications: New bisacodyl (Dulcolax (bisacodyl)) Take 2 tablets at 12 pm daily starting 2 days before colonoscopy appointment 10 mg (2 x 5 mg) PO ONCE 2 days 4 tabs 0RF polyethylene glycol 3350 (Miralax) Mix Miralax with 64 oz(8 cups) of Crystal light. Take 2 tablets of Dulcolax qt 12 pm. Wait to have your 1st bowel movement, then begin drinking Miralax. Drink a glass of Miralax every 10-15 minutes until you are finished. You will drink at least another 4 cups of clear liquid of your choice over the next 2 hours. Please drink as many clear liquids as possible You may have clear liquids up to four hours before your procedure 17 grams PO DAILY 1 day 238 grams 0RF Changed From famotidine 20 mg PO BEDTIME 30 days 30 tabs 3RF K21.9 - Gastro-esophageal reflux disease without esophagitis To famotidine 20 mg PO BID 30 days 60 tabs 3RF K21.9 - Gastro-esophageal reflux disease without esophagitis Coding Level of Care Code Est Pt Level 4 (68801) Diagnoses Vitamin D deficiency E55.9 Elevated alkaline phosphatase level R74.8 GERD (gastroesophageal reflux disease) K21.9 Cavernous hemangioma of liver D18.03 Encounter for colorectal cancer screening Z12.11; Z12.12 History of colon polyps Z86.010 Time Spent (min) 24
[2023-01-26 10:21] VITALS: BP 121/56; PULSE 78; BMI 28.2
== END 2023-01-26 11:33 | disposition home or self-care (01) ==
PROVIDERS: PCP Hospitalist; Visit Provider Internal Medicine Gastroenterology
DX: E55.9 Vitamin D deficiency, unspecified (principal); R74.8 Abnormal levels of other serum enzymes; K21.9 Gastro-esophageal reflux disease without esophagitis; D18.03 Hemangioma of intra-abdominal structures; Z12.11 Encounter for screening for malignant neoplasm of colon; Z12.12 Encounter for screening for malignant neoplasm of rectum; Z86.010 Personal history of colon polyps
CPT/HCPCS: 99214

== ENCOUNTER → 2023-01-26 10:12 | Outpatient (BNVA) | payer OTHER, SELFPAY | PROVIDERS: Visit Provider Internal Medicine Gastroenterology ==

== ENCOUNTER 2023-02-14 10:35 | Outpatient (AMB) | payer OTHER, SELFPAY ==
--- NOTE | 2023-02-14 10:47 | A.OFFPC_ITS ---
Vital Signs 02/14/23 10:52 Height 5 ft 3 in Weight 156 lb BMI 27.6 BP 124/74 Blood Pressure Location Lt brachial Position Sitting Respiration 12 Pulse 76 Pulse Source Pulse Oximeter Temp 98 F Temp Source Temporal Artery Scan Pulse Oximetry (%) 98 Oxygen Delivery Method Room Air Intake Visit Reasons: PE Intake Note: Patient states that she would like a refill on her Ozempic. Patient states that her labs came back and her glucose levels were down as well. Patient would like to know if it is relevant to get insulin levels checked. Direct Care Staffer Required: No Accompanied by: Self / Same As Patient Allergies shellfish derived Adverse Reaction (Mild, Verified 02/14/23 10:59) Hives Tobacco use date assessed: 02/14/23 Dental Screening Dental Screen Date: 02/14/23 Did you have a dental visit in the last 12 months?: Yes Did you have a dental problem in the last 6 months where you did not have access to dental care?: No Was dental information given to patient?: Patient has dentist HPI HPI Comments History of Present Illness Details 62-year-old female presents for a complete physical exam and weight management follow-up. She is on Ozempic for weight management. She is happy that she has lost 6 lb since starting Ozempic 2 months ago.? Her goal is to lose 20-30 lb. She swims and walks for exercise. No acute symptoms today. She states she had the shingrix vaccines. She notes that her last pap smear test was 3 years ago: normal She notes she had a total hysterectomy done in 2016 She requests a referral to [facility] Last mammogram was 11/28/2022: normal Last colonoscopy on 09/19/2022 Findings: Three large sized polyps removed Moderate diverticulosis seen in the sigmoid colon Moderate hemorrhoids on retroflexed exam. Plan: Await pathology results Patient has an appointment on 10/20/22 in the [facility] with Jasmina Mueller M.D. Repeat Colonoscopy interval based on path results - in 6 months to check? polypectomy site if polyps are adenomatous and 5 years if polyps are hyperplastic (due to a hx of colon polyps) She notes has a follow up for repeat colonoscopy on 04/14/2023 [facility] Medical History Asthma Back pain Breast cancer Skin cancer Type 2 diabetes mellitus Uterine cancer Surgical History H/O colonoscopy H/O: hysterectomy History of esophagogastroduodenoscopy (EGD) History of lumpectomy of left breast Family History Mother Non-Hodgkin lymphoma Social History Household Members: Spouse Housing: House Alcohol intake: former Patient Tobacco Use Status: Never used Tobacco e-Cigarette/Vaping Use: Never Used Second Hand Smoke Exposure: No service: No Current occupational status: retired Current occupational exposures/hazards: No Cognitive needs: No Hearing needs: No Vision needs: No Questionnaire Thrive Questionnaire Date Thrive assessed: 09/05/22 JUDY-7 AMB Questionnaire JUDY-7 Date JUDY - 7 assessed: 09/05/22 Source: Developed by Drs. Silverio Dooley, Yani Hull, Adonis Umanzor and colleagues, with an educational emma from [employer]. Review of Systems Const Details: Denies chills, Denies fatigue, Denies fever(s), Denies headache(s) and Denies weakness HEENT Denies change in vision, Denies dizziness, Denies headache(s), Denies hearing loss, Denies nasal congestion, Denies sinus pain, Denies sinus pressure and Denies sore throat Card Denies chest pain, Denies lightheadedness, Denies dyspnea and Denies other (palpitations) Resp Denies cough, Denies dyspnea and Denies wheezing GI Denies abdominal pain, Denies melena, Denies hematochezia, Denies change in bowel habits, Denies dyspepsia and Denies nausea Denies hematuria and Denies dysuria Musc Denies abnormal gait, Denies myalgias, Denies arthralgias, Denies numbness and Denies tingling Skin/Breast Denies rash, Denies unusual bruising and Denies wounds Neuro Denies abnormal gait, Denies dizziness, Denies headache(s), Denies memory loss, Denies numbness, Denies Sensory deficit (Neuro), Denies tingling and Denies weakness Psych Denies anxiety, Denies depression and Denies memory loss Endo Denies cold intolerance, Denies fatigue, Denies heat intolerance, Denies polydipsia and Denies polyuria Angel/Lymph Denies easy bleeding and Denies easy bruising Aller/Immun Denies wheezing Physical exam (Primary Care) Vital Signs: Last Vital Signs Temp 98 F 02/14/23 10:52 Pulse 76 02/14/23 10:52 Resp 12 02/14/23 10:52 BP 124/74 02/14/23 10:52 Pulse Ox 98 02/14/23 10:52 Oxygen Delivery Method Room Air 02/14/23 10:52 BMI result Body Mass Index 27.6 Tobacco/Smoking Status: Tobacco use Status Tobacco use date assessed 02/14/23 02/14/23 11:01 Patient Tobacco Use Status Never used Tobacco 02/14/23 10:50 e-Cigarette/Vaping Use Never Used 02/14/23 10:50 Thrive Assessment: Date of Thrive Assessment Date Thrive assessed 09/05/22 02/14/23 10:50 Const Other: General: no acute distress, well developed, alert and awake Nutritional Appearance: well nourished Orientation/consciousness: patient oriented x3 HENMT Head: Yes normocephalic and Yes atraumatic Ears: hearing grossly normal bilaterally and TM's normal bilaterally General nose exam: Normal external nose present and Normal nares present Mouth: Normal oral and palatal mucosa present and moist mucous membranes Teeth and gingiva: dentition normal Throat: Yes oropharynx normal Eyes Pupils: Equal, round and reactive pupils present and Pupil accommodation reflex normal EOM: EOMs intact bilaterally Neck Neck: Yes normal visual inspection, Yes no lymphadenopathy and Yes trachea mid line Thyroid: Thyroid normal Carotids: no bruits Lymphatic: no lymphadenopathy noted Chest Chest palpation & inspection: normal inspection of the chest Resp Effort & Inspection: normal respiratory effort Auscultation: clear to auscultation bilaterally Cardio Rate: regular rate Rhythm: regular rhythm Heart sounds: S1 normal heart sound present, S2 normal heart sound present, no gallops, no murmurs and no rubs Bruits: no abdominal aortic bruits and no carotid bruits GI Palpation (GI): No Abdominal aortic bruit present, Soft to palpation, nontender, No hepatosplenomegaly present and No Rebound tenderness present Auscultation: normal bowel sounds General: Yes no CVA tenderness Back/Spine/Pelvis Back: no CVA tenderness Cervical Spine: cervical ROM normal and No Cervical spine tenderness Thoracic/Lumbar Spine: thoraco-lumbar ROM normal, No pain with thoraco-lumbar ROM, No thoracic spinal tenderness and No lumbar spinal tenderness Skin General: warm and dry. Normal skin color. Normal skin turgor Lesions: no lesions Rashes: no rashes Trauma: no lacerations or abrasions Wounds: no wounds Nails: normal Neuro General: patient oriented x3, gait normal and CN's II-XI intact bilaterally Cranial nerves: Yes Equal, round and reactive pupils present Cognition (Neuro): normal cognition Gait exam (Neuro): Normal gait present Motor exam (neuro): 5/5 motor strength present throughout Sensory Exam: No Sensory deficit (Neuro) Deep tendon reflexes (DTR's): Right patellar reflex intensity grade: 2+ and Left patellar reflex intensity grade: 2+ Extrem General: Yes normal to inspection, No edema and No calf tenderness Psych Appearance: grossly normal Affect: normal affect Attitude: cooperative Thought process: Normal thought process present Assessment and Plan Assessment & Plan (1) Normal physical examination, routine: Code(s): Z00.00 - Encounter for general adult medical examination without abnormal findings Plan: No significant physical restrictions or limitations noted Follow-up with PCP in 2 months for with management and diabetes (2) Low TSH level: Code(s): R79.89 - Other specified abnormal findings of blood chemistry Plan: Recent lab results reviewed with the patient TSH was slightly low, 0.31, free T4 was normal. Will repeat TSH/T4 Will make changes to her care plan if warranted Verbalized understanding and agreed with the treatment plan. (3) Encounter for weight management: Code(s): Z76.89 - Persons encountering health services in other specified circumstances Plan: She has lost 6 lb since see started Ozempic 2 months ago BMI is 27.6 today Weight loss goal is 20-30 lb Ozempic refilled. Continue to take as prescribed Routine exercise encouraged Patient wants to continue to take metformin even though she is advised that her A1c and never been in the diabetic or prediabetic range. She will discuss this with her PCP at her next visit Follow-up with PCP in 2 months Return sooner with symptoms or concerns Verbalized understanding and agreed with treatment plan. (4) Hypertriglyceridemia: Code(s): E78.1 - Pure hyperglyceridemia Plan: Recent triglycerides level was elevated, 196 Reports history of hypertriglyceridemia Advised to limit foods high in saturated fat and avoid foods high trans fat Routine exercise encouraged Verbalized understanding and agreed with treatment plan. 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
[2023-02-14 10:52] VITALS: BP 124/74; PULSE 76; RESP 12; TEMP 36.6; O2SAT 98; BMI 27.6
== END 2023-02-14 11:22 | disposition home or self-care (01) ==
PROVIDERS: PCP Hospitalist; Visit Provider Nurse Practitioner Family
DX: Z00.00 Encounter for general adult medical examination without abnormal findings (principal); R79.89 Other specified abnormal findings of blood chemistry; Z76.89 Persons encountering health services in other specified circumstances; E78.1 Pure hyperglyceridemia; Z12.4 Encounter for screening for malignant neoplasm of cervix
CPT/HCPCS: 99396

== ENCOUNTER 2023-02-14 11:29 | Outpatient (REF) | payer SELFPAY ==
[2023-02-14 15:20] LABS: Appearance Urine Clear; Color Urine Yellow; Glucose Urine UA Negative (Negative); Leukocyte Esterase Urine Negative (Negative); Nitrite Urine Negative (Negative); PH 5.5 (5.0-9.0); Specific Gravity - Urine 1.015 (1.005-1.025); Urine Blood Negative (Negative); Urine Ketones Negative (Negative); Urine Protein Negative (Neg-Trace)
== END 2023-02-14 11:30 | disposition home or self-care (01) ==
LOC: HO.WFDLDS 11:29
PROVIDERS: Nurse Practitioner Family; Visit Provider Internal Medicine Gastroenterology
DX: Z00.00 Encounter for general adult medical examination without abnormal findings (principal); R94.6 Abnormal results of thyroid function studies
CPT/HCPCS: 36415; 81003; 84443

== ENCOUNTER 2023-04-13 08:15 | Outpatient (AMB) | payer OTHER, SELFPAY ==
[2023-04-13 08:18] VITALS: BP 124/66; PULSE 74; RESP 14; TEMP 37.1; O2SAT 97; BMI 26.1
--- NOTE | 2023-04-13 08:18 | A.OFFPC_ITS ---
Vital Signs 04/13/23 08:18 Height 5 ft 3 in Weight 147 lb 6 oz BMI 26.1 BP 124/66 Blood Pressure Location Rt brachial Position Sitting Respiration 14 Pulse 74 Pulse Source Pulse Oximeter Temp 98.7 F Temp Source Oral Pulse Oximetry (%) 97 Oxygen Delivery Method Room Air Intake Visit Reasons: WT management, Transfer of care Intake Note: Patient is here for a weight management appointment. Patient reports she would like to transfer care from to . Fiscal Specialist Required: No Accompanied by: Self / Same As Patient Allergies shellfish derived Adverse Reaction (Mild, Verified 04/13/23 08:26) Hives Tobacco use date assessed: 02/14/23 HPI WT management HPI Details Transfer?of?care Prior?PCP:??[facility] Last?office?visit/CPE: ?Last?visit?2?months?ago Acute?issue(s): Following?up?on?weight; started?Ozempic?in?November?and?has?lost?about?23?lb?since?t hen PMHx:??Diabetes?hypertriglyceridemia?asthma?vitamin-D?deficiency back?pain, Breast CA 2011 Endometrial CA 2016 SurgHx: L Lumpectomy, L breast Implant & removal, [facility] FHx: Mom: NHL. Uncle Bladder CA, Aunt Stomach CA SocHx: Nonsmoker, EtOH Very rare sip occassionally. No Drugs PFSH Medical History Asthma Back pain Breast cancer Skin cancer Type 2 diabetes mellitus Uterine cancer Surgical History H/O colonoscopy H/O: hysterectomy History of esophagogastroduodenoscopy (EGD) History of lumpectomy of left breast Family History Mother Non-Hodgkin lymphoma Social History Household Members: Spouse Housing: House Alcohol intake: former Patient Tobacco Use Status: Never used Tobacco e-Cigarette/Vaping Use: Never Used Second Hand Smoke Exposure: No service: No Current occupational status: retired Current occupational exposures/hazards: No Cognitive needs: No Hearing needs: No Vision needs: No Questionnaire Thrive Questionnaire Date Thrive assessed: 09/05/22 JUDY-7 AMB Questionnaire JUDY-7 Date JUDY - 7 assessed: 09/05/22 Source: Developed by Drs. Silverio Dooley, Yani Hull, Adonis Umanzor and colleagues, with an educational emma from [employer]. Review of Systems Const Denies chills, Denies fatigue, Denies fever(s), Denies headache(s) and Denies weakness ENT Denies dizziness and Denies headache(s) Card Denies chest pain, Denies lightheadedness, Denies dyspnea and Denies other (Palpitations) Resp Denies cough, Denies dyspnea, Denies wheezing and Denies other ( shortness of breath) Musc Denies numbness and Denies tingling Neuro Denies dizziness, Denies headache(s), Denies numbness, Denies tingling, Denies paresthesias and Denies weakness Psych Denies anxiety and Denies depression Endo Denies fatigue Aller/Immun Denies wheezing Physical exam (Primary Care) Vital Signs: Last Vital Signs Temp 98.7 F 04/13/23 08:18 Pulse 74 04/13/23 08:18 Resp 14 04/13/23 08:18 BP 124/66 04/13/23 08:18 Pulse Ox 97 04/13/23 08:18 Oxygen Delivery Method Room Air 04/13/23 08:18 BMI result Body Mass Index 26.1 Tobacco/Smoking Status: Tobacco use Status Tobacco use date assessed 02/14/23 04/13/23 08:28 Patient Tobacco Use Status Never used Tobacco 04/13/23 08:28 e-Cigarette/Vaping Use Never Used 04/13/23 08:28 Thrive Assessment: Date of Thrive Assessment Date Thrive assessed 09/05/22 04/13/23 08:28 Const General: no acute distress and well developed Nutritional Appearance: well nourished Orientation/consciousness: patient oriented x3 HENMT Head: Yes normocephalic and Yes atraumatic Eyes General: appearance normal, both eyes and all related structures Pupils: Equal, round and reactive pupils present EOM: EOMs intact bilaterally Resp Effort & Inspection: normal respiratory effort Auscultation: clear to auscultation bilaterally Cardio Rate: regular rate Rhythm: regular rhythm Heart sounds: S1 normal heart sound present, S2 normal heart sound present, no gallops, no murmurs and no rubs Neuro General: patient oriented x3 and gait normal Cranial nerves: Yes Equal, round and reactive pupils present Psych Affect: normal affect Results AMB Hemoglobin A1c AMB Hemoglobin A1c 5.3 % Last Edit by Gudelia Newton CMA on 04/13/23 08:50 Assessment and Plan Assessment & Plan (1) Type 2 diabetes mellitus: Code(s): E11.9 - Type 2 diabetes mellitus without complications Plan: A1c?today?5.3%?on?Ozempic?and?metformin.??Good?control.??Goal?is?less?than?7.0% Continue?current?medication?regimen (2) Asthma: Code(s): J45.909 - Unspecified asthma, uncomplicated Plan: Well?controlled. Use?albuterol?when?needed (3) Obesity: Code(s): E66.9 - Obesity, unspecified Plan: She?has?been?working?on?this?and?is?almost?in?normal?BMI?range. (4) Hypertriglyceridemia: Code(s): E78.1 - Pure hyperglyceridemia Plan: Check?labs Orders: Orders AMB Hemoglobin A1c Today Z13.9 - Encounter for screening, unspecified Medications: Changed From semaglutide (Ozempic) week 1-4 0.25 mg (0.368 mL) subcut QWEEK 4 weeks 1.6 mL 0RF To semaglutide (Ozempic) 0.5 mg (0.736 mL) subcut QWEEK 12 weeks 9 mL 3RF Coding Level of Care Code Est Pt Level 4 (56305) Diagnoses Type 2 diabetes mellitus E11.9 Asthma J45.909 Obesity E66.9 Hypertriglyceridemia E78.1
== END 2023-04-13 09:06 | disposition home or self-care (01) ==
PROVIDERS: PCP Hospitalist; Visit Provider Family Medicine
DX: E11.9 Type 2 diabetes mellitus without complications (principal); J45.909 Unspecified asthma, uncomplicated; E66.9 Obesity, unspecified; Z68.26 Body mass index [BMI] 26.0-26.9, adult; E78.1 Pure hyperglyceridemia
CPT/HCPCS: 83036; 99214

== ENCOUNTER 2023-04-18 07:04 | Outpatient (REF) | payer OTHER, SELFPAY ==
[2023-04-18 11:08] LABS: MANUAL DIFF FLAG NO
[2023-04-18 11:22] LABS: Basophils Absolute Auto 0.1 X10*3/uL (0.0-0.2); Basophils Percent Auto 0.8 % (0-2); Eosinophils Absolute Auto 0.1 X10*3/uL (0.0-0.4); Eosinophils Percent Auto 1.7 % (0-4); Hemoglobin 14.3 g/dl (12.0-16.0); Imm Gran Abs Auto 0.02 X10*3/uL (0.00-0.03); Imm Gran Pct Auto 0.3 % (0.0-0.4); Lymphocytes Absolute Auto 2.6 X10*3/uL (1.2-4.9); Lymphocytes Percent Auto 33.3 % (20-40); Mean Corpuscular HGB Conc 32.5 g/dl (31.0-35.0); Mean Corpuscular Volume 92.2 fL (80.0-98.0); Mean Platelet Volume 9.7 fL (9.4-12.3); Monocytes Absolute Auto 0.8 X10*3/uL (0.1-1.2); Monocytes Percent Auto 10.5 % (2-11); Neutrophils Absolute Auto 4.2 x10*3/uL (2.0-8.3); Neutrophils Percent Auto 53.4 % (45-73); Platelet Count 291 X10*3/uL (160-400); Red Blood Count 4.77 X10*6/uL (4.20-5.50); Red Cell Distribution Width 13.2 % (11.0-16.0); White Blood Count 7.8 X10*3/uL (4.8-10.8)
[2023-04-18 11:49] LABS: Appearance Urine Clear; Blood Urea Nitrogen 11 mg/dL (9-16); C Reactive Protein 0.96 mg/dL (< or = 0.50); Color Urine Yellow; Estimated Glomerular Filt Rate > 60; Glucose Urine UA Negative (Negative); Leukocyte Esterase Urine Small (1+) (Negative); Nitrite Urine Negative (Negative); Specific Gravity - Urine 1.015 (1.005-1.025); UMIC TRIGGER UA YES; Urine Blood Negative (Negative); Urine Ketones Negative (Negative); Urine Protein Negative (Neg-Trace)
[2023-04-18 12:01] LABS: Bacteria Urine None Seen (None Seen); Hyaline Casts Urine 0-2 /LPF (0-2); RBC Urine 0-2 /HPF (0-2); Squamous Epithelial Cell Urine 0-2 /HPF (0-2)
[2023-04-21 21:13] LABS: Transglutaminase Ab IgG <1.0 U/mL; Transglutaminase IgA <1.0 U/mL
[2023-04-26 10:07] LABS: Smooth Muscle Antibody <20 U (<20)
== END 2023-04-18 07:05 | disposition home or self-care (01) ==
LOC: HO.WFDLDS 07:04
PROVIDERS: Hospitalist; Internal Medicine Gastroenterology; Visit Provider Family Medicine
DX: D18.03 Hemangioma of intra-abdominal structures (principal); R74.8 Abnormal levels of other serum enzymes
CPT/HCPCS: 36415; 81001; 82565; 84520; 85025; 86015; 86140; 86364

== ENCOUNTER → 2023-05-03 13:09 | Outpatient (AMB) | payer OTHER, SELFPAY ==
--- NOTE | 2023-05-03 13:09 | MHC.OFFWIV ---
Intake Vital Signs 05/03/23 13:11 Height 5 ft 3 in Weight 146 lb 2 oz BMI 25.9 BP 112/62 Blood Pressure Location Rt brachial Position Sitting Pulse 69 Pulse Source Pulse Oximeter Pulse Oximetry (%) 100 Oxygen Delivery Method Room Air Intake Visit Reasons: ? UTI Intake Note: Patient is here today for a possible uti, symptoms are burn sensation, and frequency. Patient Tobacco Use Status: Never used Tobacco Percussion Tuner Required: No Covered Buckle Assembler: Not Required per policy Accompanied by: Self / Same As Patient Allergies shellfish derived Adverse Reaction (Mild, Verified 05/03/23 13:21) Hives Medication List - Last Reconciled 05/03/23 by Marleni Zimmerman, [facility]- albuterol sulfate 90 mcg/actuation 1 puff inhalation Q4H PRN bisacodyl (Dulcolax (bisacodyl)) 10 mg (2 x 5 mg) PO ONCE 2 days ergocalciferol (vitamin D2) 1,250 mcg PO QWEEK 1 month famotidine 20 mg PO BID 30 days metformin 500 mg PO BID polyethylene glycol 3350 (Miralax) 17 grams PO DAILY 1 day semaglutide (Ozempic) 0.5 mg (0.736 mL) subcut QWEEK 12 weeks Do you need a note to return to daycare/school/sports/work: No HPI HPI Comments History of Present Illness Details Here today w/ c/o UTI sx gets 2 per year Last one around 07/2022 Sx started last night. Sx include burning, freq, small amounts of urine passed. Has been pushing fluids. [place] a little better this AM Denies abd pain, fever, chills, vomiting, vaginal d/c, itching. + DM, well controlled, taking meds as directed. PFSH Medical History Asthma Back pain Breast cancer Skin cancer Type 2 diabetes mellitus Uterine cancer Surgical History H/O colonoscopy H/O: hysterectomy History of esophagogastroduodenoscopy (EGD) History of lumpectomy of left breast Family History Mother Non-Hodgkin lymphoma Social History Household Members: Spouse Housing: House Alcohol intake: former Patient Tobacco Use Status: Never used Tobacco e-Cigarette/Vaping Use: Never Used Second Hand Smoke Exposure: No service: No Current occupational status: retired Current occupational exposures/hazards: No Cognitive needs: No Hearing needs: No Vision needs: No Review of Systems Const All systems reviewed & are unremarkable except as noted in HPI and below Physical Exam Vital Signs: Last Vital Signs Pulse 69 05/03/23 13:11 BP 112/62 05/03/23 13:11 Pulse Ox 100 05/03/23 13:11 Oxygen Delivery Method Room Air 05/03/23 13:11 BMI result Body Mass Index 25.9 Const Other: awake alert NAD MMM Speaking in full sentences No CVAT Abd soft, nontender Results AMB Urinalysis, Automated UA Leukoctes 2 [place]/uL Last Edit by Vesta Shah [facility] on 05/03/23 13:33 UA Nitrite Negative Last Edit by Vesta Shah [facility] on 05/03/23 13:33 UA Urobilinogen 1 mg/dL Last Edit by Vesta Shah [facility] on 05/03/23 13:33 UA Protein 1 mg/dL Last Edit by Vesta Shah [facility] on 05/03/23 13:33 UA pH 5.0 Last Edit by Vesta Shah [facility] on 05/03/23 13:33 UA Blood 2 [place]/uL Last Edit by Vesta Shah [facility] on 05/03/23 13:33 UA Specific [place] 1.030 Last Edit by Vesta Shah [facility] on 05/03/23 13:33 UA Ketone Positive Last Edit by Vesta Shah [facility] on 05/03/23 13:33 UA Bilirubin 1 mg/dL Last Edit by Vesta Shah [facility] on 05/03/23 13:33 UA Glucose 0 mg/dL Last Edit by Vesta Shah [facility] on 05/03/23 13:33 Assessment & Plan Assessment & Plan (1) UTI (urinary tract infection): Code(s): N39.0 - Urinary tract infection, site not specified Qualifiers: Urinary tract infection type: acute cystitis Hematuria presence: without hematuria Qualified Code(s): N30.00 - Acute cystitis without hematuria Plan: previous urine cx 08/2022 eterococcus faecilis. Sensitive to Macrobid. Take as directed. If no improvement or worsening of sx, seek addl care. Hygiene and DM edu provided. Orders: Orders AMB Urinalysis Automated Today N39.0 - Urinary tract infection, site not specified Medications: New nitrofurantoin macrocrystal must administer with a meal/food 100 mg PO BID 5 days 10 caps 0RF Coding Level of Care Code Est Pt Level 3 (23768) Diagnoses Acute cystitis without hematuria N30.00 Urinary tract infection type: acute cystitis Hematuria presence: without hematuria
[2023-05-03 13:11] VITALS: BP 112/62; PULSE 69; O2SAT 100; BMI 25.9
== END ==
PROVIDERS: PCP Hospitalist; Visit Provider Nurse Practitioner Family
DX: N30.00 Acute cystitis without hematuria (principal); N39.0 Urinary tract infection, site not specified
CPT/HCPCS: 81003; 99213

== ENCOUNTER 2023-05-24 10:36 | Outpatient (AMB) | payer OTHER, SELFPAY ==
--- NOTE | 2023-05-24 10:38 | A.OFFVIS_ITS ---
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 She is doing well with no concerns. Attempting to eat a healthy diet with calcium and vitamin D and stays active with exercise. Currently not sexually active with her . Denies any irritation. Last mammogram; UTD. Colonoscopy is UTD. [facility] Medical History (Updated 05/24/23 @ 11:09 by Anayeli Livingston CNM) Type 2 diabetes mellitus Asthma Skin cancer Uterine cancer Breast cancer Back pain Surgical History History of esophagogastroduodenoscopy (EGD) H/O colonoscopy H/O: hysterectomy History of lumpectomy of left breast Family History (Updated 05/24/23 @ 10:48 by MENDEZ Sandy) Mother Non-Hodgkin lymphoma Maternal Aunt Stomach cancer Maternal Uncle Bladder cancer Social History Household Members: Spouse Housing: House Alcohol intake: former Patient Tobacco Use Status: Never used Tobacco e-Cigarette/Vaping Use: Never Used Second Hand Smoke Exposure: No service: No Current occupational status: retired Current occupational exposures/hazards: No Cognitive needs: No Hearing needs: No Vision needs: No Female Reproductive History Menstrual Menopause type: surgical Total pregnancies: 1 Full term: 1 Number of Living Children: 1 Review of Systems Const All systems reviewed & are unremarkable except as noted in HPI and below Reports as per HPI Eyes Reports no additional complaints ENT Reports no additional complaints Card Reports no additional complaints Resp Reports no additional complaints GI Reports as per HPI and Reports no additional complaints Reports as per HPI Musc Reports no additional complaints Skin/Breast Reports as per HPI Neuro Reports no additional complaints Psych Reports no additional complaints Endo Reports no additional complaints Angel/Lymph Reports no additional complaints Aller/Immun Reports no additional complaints Physical Exam Vital Signs: Last Vital Signs BP 102/68 05/24/23 10:39 BMI result Body Mass Index 25.5 Const General: cooperative, healthy appearing, no acute distress, well developed and alert Orientation/consciousness: patient oriented x3 HEENT Head: Yes normal to inspection Eyes General: appearance normal, both eyes and all related structures Neck Neck: Yes normal visual inspection Thyroid: Thyroid normal Chest Other: bilateral reconstruction scarring Chest palpation & inspection: normal inspection of the chest and other (no puckering, dimpling, peau de orange, retraction, discharge, masses) Breast/axilla inspection: normal inspection of the breasts Breast/axilla palpation: normal palpation of the breasts Resp Effort & Inspection: normal respiratory effort GI Inspection: Yes normal to inspection Palpation (GI): Soft to palpation Rectal Exam - Female: deferred General: Yes bladder normal to palpation External Female Exam: normal external appearance and normal appearance of the urethra Speculum Exam - Vagina: normal appearance of the vagina, normal palpation, normal vaginal discharge and vagina atrophic Speculum Exam - Cervix: Cervix absent Bimanual exam- vagina & uterus: normal bimanual exam, normal palpation, bladder normal to palpation and uterus absent (Vaginal cuff no lesions or nodules) Bimanual Exam- Adnexa, other: no masses Skin General skin exam: no rashes or lesions noted Rashes: no rashes Neuro General: patient oriented x3 Cognition (Neuro): normal cognition Extrem General: Yes normal to inspection Psych Attitude: cooperative Thought process: Normal thought process present Assessment & Plan Assessment & Plan (1) Encounter for well woman exam with routine gynecological exam: Code(s): Z01.419 - Encounter for gynecological examination (general) (routine) without abnormal findings (2) Atrophy of vagina: Code(s): N95.2 - Postmenopausal atrophic vaginitis Plan Discussed: Current recommendations for pap smears per ASCCP guidelines. Breast awareness, periodic self breast exams and yearly mammogram. Maintain a healthy lifestyle, well balanced diet including Calcium 1,200 mg and Vitamin D 600 IU daily, and routine exercise. Discussed the use of vaginal moisturizers, lubricants and intermittent personal products. All of her questions and concerns were addressed to the best of my ability. RTO in 1 year for annual biostatistics professor exam. Coding Level of Care Code New Pt Prev Care 40-64y(19143) Diagnoses Encounter for well woman exam with routine gynecological exam Z01.419 Atrophy of vagina N95.2
[2023-05-24 10:39] VITALS: BP 102/68; BMI 25.5
== END 2023-05-24 11:31 | disposition home or self-care (01) ==
PROVIDERS: PCP Hospitalist; Visit Provider Advanced Practice Midwife
DX: Z01.419 Encounter for gynecological examination (general) (routine) without abnormal findings (principal); N95.2 Postmenopausal atrophic vaginitis
CPT/HCPCS: 99386

== ENCOUNTER → 2023-05-24 10:36 | Outpatient (BNVA) | payer OTHER, SELFPAY | PROVIDERS: PCP Hospitalist; Visit Provider Advanced Practice Midwife ==

== ENCOUNTER 2023-06-09 09:32 | Outpatient (AMB) | payer OTHER, SELFPAY ==
[2023-06-09 09:39] VITALS: BP 104/66; PULSE 110; RESP 13; TEMP 36.6; O2SAT 97; BMI 24.8
--- NOTE | 2023-06-09 09:39 | MHC.PC.OV ---
Vital Signs 06/09/23 09:39 Height 5 ft 3 in Weight 140 lb BMI 24.8 BP 104/66 Blood Pressure Location Rt brachial Position Sitting Respiration 13 Pulse 110 H Pulse Source Pulse Oximeter Temp 97.9 F Temp Source Temporal Artery Scan Pulse Oximetry (%) 97 Oxygen Delivery Method Room Air Intake Visit Reasons: ? flu, fever, cough, achy joints, chills, headache Intake Note: Patient states that shes been spitting up greenish thick phlegm. Patient states that shes also been experiencing ear pain and body pain as well. Patient states cough is dry but she can feel phlegm in chest. Lead Teller Required: No Accompanied by: Self / Same As Patient Allergies shellfish derived Adverse Reaction (Mild, Verified 06/09/23 10:06) Hives Medication List - Last Reconciled 06/09/23 by Adrian Rocha CNP albuterol sulfate 90 mcg/actuation 1 puff inhalation Q4H PRN bisacodyl (Dulcolax (bisacodyl)) 10 mg (2 x 5 mg) PO ONCE 2 days ergocalciferol (vitamin D2) 1,250 mcg PO QWEEK 1 month famotidine 20 mg PO BID metformin 500 mg PO BID polyethylene glycol 3350 (Miralax) 17 grams PO DAILY 1 day semaglutide (Ozempic) 0.5 mg (0.736 mL) subcut QWEEK 12 weeks Tobacco use date assessed: 02/14/23 Dental Screening Dental Screen Date: 06/09/23 Did you have a dental visit in the last 12 months?: Yes Did you have a dental problem in the last 6 months where you did not have access to dental care?: No Was dental information given to patient?: Patient has dentist HPI HPI Comments History of Present Illness Details 63-year-old female presents with complaints of bilateral ear pain, chills, sore throat, cough with thick greenish phlegm, generalized aches, fatigue, and headaches. She had low grade fever of 99.8 last night. Her symptoms have been ongoing for the past two days. She has been taking Tylenol and hydrating well. She has no appetite today. No known sick contacts She is up-to-date on COVID-19 and influenza vaccines [facility] Medical History Type 2 diabetes mellitus Asthma Skin cancer Uterine cancer Breast cancer Back pain Surgical History History of esophagogastroduodenoscopy (EGD) H/O colonoscopy H/O: hysterectomy History of lumpectomy of left breast Family History Mother Non-Hodgkin lymphoma Maternal Aunt Stomach cancer Maternal Uncle Bladder cancer Social History Household Members: Spouse Housing: House Alcohol intake: former Patient Tobacco Use Status: Never used Tobacco e-Cigarette/Vaping Use: Never Used Second Hand Smoke Exposure: No service: No Current occupational status: retired Current occupational exposures/hazards: No Cognitive needs: No Hearing needs: No Vision needs: No Questionnaire Thrive Questionnaire Date Thrive assessed: 09/05/22 JUDY-7 AMB Questionnaire JUDY-7 Date JUDY - 7 assessed: 09/05/22 Source: Developed by Drs. Silverio Dooley, Yani Hull, Adonis Umanzor and colleagues, with an educational emma from [employer]. Review of Systems Const Details: Const Denies chills, Denies fatigue, Denies fever(s), Denies headache(s) and Denies weakness ENT Reports as per HPI Card Denies chest pain, Denies lightheadedness, Denies dyspnea and Denies other (Palpitations) Resp Reports cough, Denies dyspnea, Denies wheezing and Denies other ( shortness of breath) GI Denies abdominal pain, Denies melena, Denies hematochezia, Denies change in bowel habits, Denies dyspepsia and Denies nausea Denies hematuria and Denies dysuria Musc Denies abnormal gait, Denies myalgias, Denies arthralgias, Denies numbness and Denies tingling Skin/Breast Denies rash, Denies unusual bruising and Denies wounds Neuro Denies abnormal gait, Denies dizziness, Denies headache(s), Denies memory loss, Denies numbness, Denies Sensory deficit (Neuro), Denies tingling and Denies weakness Psych Denies anxiety, Denies depression, Denies memory loss Endo Denies cold intolerance, Denies fatigue, Denies heat intolerance, Denies polydipsia and Denies polyuria Aller/Immun Denies wheezing Physical exam (Primary Care) Vital Signs: Last Vital Signs Temp 97.9 F 06/09/23 09:39 Pulse 110 H 06/09/23 09:39 Resp 13 06/09/23 09:39 BP 104/66 06/09/23 09:39 Pulse Ox 97 06/09/23 09:39 Oxygen Delivery Method Room Air 06/09/23 09:39 BMI result Body Mass Index 24.8 Tobacco/Smoking Status: Tobacco use Status Tobacco use date assessed 02/14/23 06/09/23 09:47 Patient Tobacco Use Status Never used Tobacco 06/09/23 09:47 e-Cigarette/Vaping Use Never Used 06/09/23 09:47 Thrive Assessment: Date of Thrive Assessment Date Thrive assessed 09/05/22 06/09/23 09:47 Const Other: General: no acute distress and well developed Nutritional Appearance: well nourished Orientation/consciousness: patient oriented x3 HENMT Head is normocephalic Bilateral ear canal and TM are normal Nasal turbinates and oropharynx are pink and moist Sinuses are nontender with palpation No auricular or cervical lymphadenopathy Eyes General: appearance normal, both eyes and all related structures Pupils: Equal, round and reactive pupils present EOM: EOMs intact bilaterally Resp Effort & Inspection: normal respiratory effort Auscultation: clear to auscultation bilaterally Cardio Rate: regular rate Rhythm: regular rhythm Heart sounds: S1 normal heart sound present, S2 normal heart sound present, no gallops, no murmurs and no rubs GI Palpation (GI): No Abdominal aortic bruit present, Soft to palpation, nontender, No hepatosplenomegaly present and No Rebound tenderness present Auscultation: normal bowel sounds General: Yes no CVA tenderness Back/Spine/Pelvis Back: no CVA tenderness Cervical Spine: cervical ROM normal and No Cervical spine tenderness Thoracic/Lumbar Spine: thoraco-lumbar ROM normal, No pain with thoraco-lumbar ROM, No thoracic spinal tenderness and No lumbar spinal tenderness Extrem General: Yes normal to inspection, No edema and No calf tenderness Skin General: warm and dry. Normal skin color. Normal skin turgor Neuro General: patient oriented x3, gait normal and no focal neuro deficit Cranial nerves: Yes Equal, round and reactive pupils present Cognition (Neuro): normal cognition Gait exam (Neuro): Normal gait present Sensory Exam: No Sensory deficit (Neuro) Psych Appearance: grossly normal Affect: normal affect Attitude: cooperative Thought process: Normal thought process present Assessment and Plan Assessment & Plan (1) Viral upper respiratory illness: Code(s): J06.9 - Acute upper respiratory infection, unspecified Plan: Likely viral illness though possibly allergies. No exam evidence of bacterial infection. However, superimposed bacterial infection is possible Viral illness There is no antibiotic medication for viruses.? They must run their course.? Most average 5-7 days but 7-10 days is not uncommon and up to 14 days is still possible.? A cough is often the last symptom to resolve and this can last for weeks in some cases. Rest Hydrate well -? Drink plenty of fluids.? Especially water. Tylenol or ibuprofen for muscle aches, headache, fever/discomfort Azithromycin and benzonatate as prescribed Cannot rule out COVID-19/RSV/Flu infection Nasal swab acquired and will be sent to the lab Return for new or worsening symptoms Verbalized understanding and agreed with treatment plan. Orders: Orders SARS-CoV2/FLU/RSV Today J06.9 - Acute upper respiratory infection, unspecified Medications: New benzonatate 200 mg PO BID PRN 20 caps 0RF cough azithromycin (Zithromax Z-Harman) For 250 mg dose pack: take 500 mg today (day 1), then 250 mg for 4 days (days 2-5) PO 6 tabs 0RF Coding Level of Care Code Est Pt Level 2 (44163) Diagnoses Viral upper respiratory illness J06.9
== END 2023-06-09 10:17 | disposition home or self-care (01) ==
PROVIDERS: PCP Hospitalist; Visit Provider Nurse Practitioner Family
DX: J06.9 Acute upper respiratory infection, unspecified (principal)
CPT/HCPCS: 99212

== ENCOUNTER 2023-06-09 10:18 | Outpatient (REF) | payer OTHER, SELFPAY ==
[2023-06-09 12:55] LABS: Influenza A PCR NEGATIVE (Negative); Influenza B PCR NEGATIVE (Negative); Resp Syncy Virus RNA Qual PCR NEGATIVE (Negative); SARS COV2 PCR INHOUSE POSITIVE (Negative)
== END 2023-06-09 10:19 | disposition home or self-care (01) ==
LOC: HO.LAB 10:18
PROVIDERS: Visit Provider Nurse Practitioner Family
DX: J06.9 Acute upper respiratory infection, unspecified (principal); Z11.52 Encounter for screening for COVID-19
CPT/HCPCS: 0241U

== ENCOUNTER 2023-06-23 12:39 | Outpatient (AMB) | payer OTHER, SELFPAY ==
[2023-06-23 12:56] VITALS: BP 116/64; PULSE 83; O2SAT 96; BMI 24.6
--- NOTE | 2023-06-23 12:56 | MHC.PC.OV ---
Vital Signs 06/23/23 12:56 Height 5 ft 3 in Weight 139 lb BMI 24.6 BP 116/64 Blood Pressure Location Lt brachial Position Sitting Pulse 83 Pulse Source Pulse Oximeter Pulse Oximetry (%) 96 Oxygen Delivery Method Room Air Intake Visit Reasons: Extended exam Intake Note: Patient is here for extended exam, and would like to talk about getting a bone density scan. Allergies shellfish derived Adverse Reaction (Mild, Verified 06/23/23 13:03) Hives Tobacco use date assessed: 06/23/23 HPI Extended exam HPI Details Patient?presents?for?an?extended?exam Recent?COVID?infection?May?. Reviewed?labs?from?January: LDL?cholesterol?109?which?is?slightly?above?goal?of?less?than?100?for?patient?with?diabetes. Mammogram?in?November?showed No mammographic evidence of malignancy. She is scheduled next year for her mammogram and pap smear. Bone?density?test?in?2018?showed?osteoporosis?in?the?lumbar?spine?and?osteopenia?in?the?hip.??These?were?improved?from?her?prior?bone?density?in?2016?however, without?medication?except?calcium?and?vitamin-D?and?weight-bearing?exercise. It?was?advised?she?continue?these. Followed?by?gastroenterology?at?[facility]. 09/2022 colonoscopy was performed and three large sessile serrated polyps were removed and a Repeat colonoscopy was scheduled for 04/14/23 to check polypectomy sites in the ascending and transverse colon. Pt notes she has started ozempic since her last set of labs and has been eating better. [facility] Medical History Type 2 diabetes mellitus Asthma Skin cancer Uterine cancer Breast cancer Back pain Surgical History History of esophagogastroduodenoscopy (EGD) H/O colonoscopy H/O: hysterectomy History of lumpectomy of left breast Family History Mother Non-Hodgkin lymphoma Maternal Aunt Stomach cancer Maternal Uncle Bladder cancer Social History Household Members: Spouse Housing: House Alcohol intake: former Patient Tobacco Use Status: Never used Tobacco e-Cigarette/Vaping Use: Never Used Second Hand Smoke Exposure: No service: No Current occupational status: retired Current occupational exposures/hazards: No Cognitive needs: No Hearing needs: No Vision needs: No Questionnaire Thrive Questionnaire Date Thrive assessed: 09/05/22 JUDY-7 AMB Questionnaire JUDY-7 Date JUDY - 7 assessed: 09/05/22 Source: Developed by Drs. Silverio Dooley, Yani Hull, Adonis Umanzor and colleagues, with an educational emma from [employer]. Review of Systems Const Denies chills, Denies fatigue, Denies fever(s), Denies headache(s) and Denies weakness Eyes Denies change in vision ENT Denies dizziness, Denies headache(s), Denies hearing loss, Denies nasal congestion, Denies sinus pain, Denies sinus pressure and Denies sore throat Card Denies chest pain, Denies lightheadedness, Denies dyspnea and Denies other (palpitations) Resp Denies cough, Denies dyspnea and Denies wheezing GI Denies abdominal pain, Denies melena, Denies hematochezia, Denies change in bowel habits, Denies dyspepsia and Denies nausea Denies hematuria and Denies dysuria Musc Denies abnormal gait, Denies myalgias, Denies arthralgias, Denies numbness and Denies tingling Skin/Breast Denies rash, Denies unusual bruising and Denies wounds Neuro Denies abnormal gait, Denies dizziness, Denies headache(s), Denies memory loss, Denies numbness, Denies Sensory deficit (Neuro), Denies tingling and Denies weakness Psych Denies anxiety, Denies depression and Denies memory loss Endo Denies cold intolerance, Denies fatigue, Denies heat intolerance, Denies polydipsia and Denies polyuria Angel/Lymph Denies easy bleeding and Denies easy bruising Aller/Immun Denies wheezing Physical exam (Primary Care) Vital Signs: Last Vital Signs Pulse 83 06/23/23 12:56 BP 116/64 06/23/23 12:56 Pulse Ox 96 06/23/23 12:56 Oxygen Delivery Method Room Air 06/23/23 12:56 BMI result Body Mass Index 24.6 Tobacco/Smoking Status: Tobacco use Status Tobacco use date assessed 06/23/23 06/23/23 13:03 Patient Tobacco Use Status Never used Tobacco 06/23/23 12:57 e-Cigarette/Vaping Use Never Used 06/23/23 12:57 Thrive Assessment: Date of Thrive Assessment Date Thrive assessed 09/05/22 06/23/23 12:57 Const General: no acute distress, well developed, alert and awake Nutritional Appearance: well nourished Orientation/consciousness: patient oriented x3 HENMT Head: Yes normocephalic and Yes atraumatic Ears: hearing grossly normal bilaterally and TM's normal bilaterally General nose exam: Normal external nose present and Normal nares present Mouth: Normal oral and palatal mucosa present and moist mucous membranes Teeth and gingiva: dentition normal Throat: Yes posterior oropharynx normal Eyes General: appearance normal, both eyes and all related structures Pupils: Equal, round and reactive pupils present and Pupil accommodation reflex normal EOM: EOMs intact bilaterally Neck Neck: Yes normal visual inspection, Yes no lymphadenopathy and Yes trachea midline Thyroid: Thyroid normal Carotids: no bruits Lymphatic: no lymphadenopathy noted Chest Chest palpation & inspection: normal inspection of the chest Resp Effort & Inspection: normal respiratory effort Auscultation: clear to auscultation bilaterally Cardio Rate: regular rate Rhythm: regular rhythm Heart sounds: S1 normal heart sound present, S2 normal heart sound present, no gallops, no murmurs and no rubs Bruits: no abdominal aortic bruits and no carotid bruits GI Palpation (GI): No Abdominal aortic bruit present, Soft to palpation, nontender, No hepatosplenomegaly present and No Rebound tenderness present Auscultation: normal bowel sounds General: Yes no CVA tenderness Back/Spine/Pelvis Back: no CVA tenderness Cervical Spine: cervical ROM normal and No Cervical spine tenderness Thoracic/Lumbar Spine: thoraco-lumbar ROM normal, No pain with thoraco-lumbar ROM, No thoracic spinal tenderness and No lumbar spinal tenderness Skin Lesions: no lesions Rashes: no rashes Trauma: no lacerations or abrasions Wounds: no wounds Nails: normal Neuro General: patient oriented x3 Cranial nerves: Yes Equal, round and reactive pupils present Cognition (Neuro): normal cognition Gait exam (Neuro): Normal gait present Motor exam (neuro): 5/5 motor strength present throughout Sensory Exam: No Sensory deficit (Neuro) Deep tendon reflexes (DTR's): Right patellar reflex intensity grade: 2+ and Left patellar reflex intensity grade: 2+ Extrem General: Yes normal to inspection and No edema Psych Appearance: grossly normal Affect: normal affect Attitude: cooperative Thought process: Normal thought process present Assessment and Plan Assessment & Plan (1) Normal physical exam: Code(s): Z00.00 - Encounter for general adult medical examination without abnormal findings (2) Hypertriglyceridemia: Code(s): E78.1 - Pure hyperglyceridemia Plan: Lipids?mildly?elevated?above?goal?for?patient?with?diabetes She?has?lost?a?significant?amount?of?weight?since?her?last?check. Will?repeat?lipids?in?preparation?for?her?next?visit?in?about?3?months (3) Type 2 diabetes mellitus: Code(s): E11.9 - Type 2 diabetes mellitus without complications Plan: A1c?had?shown?good?control?at?last?check.??Goal?is?less?than?7.0% Will?repeat?A1c?prior?to?her?next?visit?and?follow-up?on?diabetes (4) Screening for colon cancer: Code(s): Z12.11 - Encounter for screening for malignant neoplasm of colon Plan: Follow-up?with?Gastroenterology?as?recommended.??She?has?a?repeat?colonoscopy?scheduled?for?September (5) Screening for cervical cancer: Code(s): Z12.4 - Encounter for screening for malignant neoplasm of cervix Plan: Followed?by?[facility]?order picker?and?is?up-to-date.??Has?follow-up?appointment?next?year (6) Breast cancer screening by mammogram: Code(s): Z12.31 - Encounter for screening mammogram for malignant neoplasm of breast Plan: Mammogram?showed?no?evidence?of?malignancy?and?recommended?annual?screening?which?we?will?continue (7) Osteoporosis: Code(s): M81.0 - Age-related osteoporosis without current pathological fracture Plan: Osteoporosis?of?lumbar?spine?and?osteopenia?of?hip?on?her?most?recent?bone?density?over?2?years?ago. She?takes?a?vitamin-D?supplement?and?I?encouraged?good?sources?calcium. Encouraged?weight-bearing?exercise We?discussed?that?osteoporosis?has?worsened, we?will?discuss?bisphosphonate?medications. Orders: Orders Hemoglobin A1c Today E11.9 - Type 2 diabetes mellitus without complications, R73.01 - Impaired fasting glucose XR DEXA axial skeleton Today M81.0 - Age-related osteoporosis without current pathological fracture Comprehensive [place]. Panel Fast Today E11.9 - Type 2 diabetes mellitus without complications, Z00.00 - Encounter for general adult medical examination without abnormal findings Lipid Panel Today E11.9 - Type 2 diabetes mellitus without complications, Z00.00 - Encounter for general adult medical examination without abnormal findings Medications: Refilled semaglutide (Ozempic) 0.5 mg (0.736 mL) subcut QWEEK 12 weeks 9 mL 3RF Coding Level of Care Code Est Pt Level 4 (04169) Diagnoses Normal physical exam Z00.00 Hypertriglyceridemia E78.1 Type 2 diabetes mellitus E11.9 Screening for colon cancer Z12.11 Screening for cervical cancer Z12.4 Breast cancer screening by mammogram Z12.31 Osteoporosis M81.0
== END 2023-06-23 13:30 | disposition home or self-care (01) ==
PROVIDERS: PCP Hospitalist; Visit Provider Family Medicine
DX: E78.1 Pure hyperglyceridemia (principal); E11.9 Type 2 diabetes mellitus without complications; M81.0 Age-related osteoporosis without current pathological fracture
CPT/HCPCS: 99214

== ENCOUNTER 2023-07-27 11:12 | Outpatient (REF) | payer OTHER, SELFPAY ==
--- NOTE | ~2023-07-27 | MM_ITS ---
EXAMINATION: BONE DENSITOMETRY CLINICAL INDICATION: Age-related osteoporosis without current pathological fracture. COMPARISON: This is the patient's baseline examination. TECHNIQUE: Using a [employer] DXA System (software version: 13.1) manufactured by [employer], dual-energy x-ray absorptiometry was performed of the lumbar spine and left hip. The images are of good technical quality. Summary results are attached. FINDINGS: AP SPINE L1-L4: BMD 0.703 g/cm2, Z-score -2.6, T-score -4.0, osteoporosis. LEFT FEMUR, NECK: BMD 0.804 g/cm2, Z-score -0.3, T-score -1.7, osteopenia. LEFT FEMUR, TOTAL: BMD 0.823 g/cm2, Z-score -0.4, T-score -1.5, osteopenia. IDENTIFIED RISK FACTORS: Menopause. Hysterectomy. Bilateral oophorectomy. HISTORY OF FRACTURE: None listed. MEDICATIONS: Multivitamin. Vitamin D. MM/XR DEXA axial skeleton IMPRESSION: 1. DIAGNOSIS: Osteoporosis based on the lowest T-score value of -4.0 in the lumbar spine applying World Health Organization criteria. 2. 10-YEAR FRACTURE RISK PREDICTION, FRAX: According to the guidelines, FRAX calculation should only be performed on patients in the osteopenia bone density category. Therefore, FRAX was not performed on this patient.? 3. Treatment Recommendations: NOF guidelines recommend consideration for treatment in postmenopausal women and men age 50 and older presenting with the following: -A hip or vertebral (clinical or morphometric) fracture. -T-score less than or equal to -2.5 at the femoral neck or spine after appropriate evaluation to exclude secondary causes. -Low bone mass at the hip or spine and a 10-year fracture probability by FRAX of greater than or equal to 3% for hip fracture or greater than or equal to 20% for major osteoporotic fracture based on the [place] adapted WHO algorithm. 4. Other Recommendations: All treatment decisions require clinical judgment and consideration of individual patient factors, including patient preferences, comorbidities, previous drug use, risk factors not captured in the FRAX model (e.g. frailty, falls, vitamin D deficiency, increased bone turnover, interval significant decline in bone density) and possible under or overestimation of fracture risk by FRAX. Additional medical evaluation for secondary cause of low bone mineral density may be appropriate. FUTURE SCAN RECOMMENDATION: People with diagnosed cases of osteoporosis or at high risk for fracture should have regular bone mineral density tests. For patients eligible for Medicare, routine testing is allowed once every 2 years. The testing frequency can be increased to one year for patients who have rapidly progressing disease, those who are receiving or discontinuing medical therapy to restore bone mass, or have additional risk factors.
== END 2023-07-27 11:13 | disposition home or self-care (01) ==
LOC: HO.MAMMO 11:12
PROVIDERS: PCP Family Medicine; Visit Provider Family Medicine
DX: Z13.820 Encounter for screening for osteoporosis (principal); Z78.0 Asymptomatic menopausal state; M81.0 Age-related osteoporosis without current pathological fracture
CPT/HCPCS: 77080

== ENCOUNTER 2023-09-04 12:01 | Day surgery (SDC) | payer OTHER, SELFPAY ==
[2023-09-04 12:24] VITALS: BMI 24.5
[2023-09-04 12:31] VITALS: BP 129/72; PULSE 76; RESP 16; TEMP 37.3; O2SAT 96
--- NOTE | 2023-09-04 12:39 | HO.ANESPROP2 ---
[facility] Active Problems Active Problems: All Active Problems (Updated 06/23/23 @ 13:16 by Tonio Mason) Osteoporosis (Acute) Breast cancer screening by mammogram (Acute) Screening for cervical cancer (Acute) Screening for colon cancer (Acute) Viral upper respiratory illness (Acute) Obesity (Acute) Pap smear for cervical cancer screening (Acute) Hypertriglyceridemia (Acute) Normal physical examination, routine (Acute) Low TSH level (Acute) History of colon polyps (Acute) Laboratory tests ordered as part of a complete physical exam (CPE) (Acute) Encounter for weight management (Acute) Type 2 diabetes mellitus (Acute) Obesity (BMI 30.0-34.9) (Acute) Hand injury (Acute) Vitamin D deficiency (Acute) UTI (urinary tract infection) (Acute) Screening due (Acute) History of recurrent UTIs (Acute) Normal physical exam (Acute) Encounter for colorectal cancer screening (Acute) Elevated alkaline phosphatase level (Acute) GERD (gastroesophageal reflux disease) (Acute) Insulin resistance (Acute) Cavernous hemangioma of liver (Acute) Recurrent UTI (Acute) Asthma (Acute) Back pain (Acute) Past Medical History Medical History Type 2 diabetes mellitus Asthma Skin cancer Uterine cancer Breast cancer Back pain Family History Family History Mother Non-Hodgkin lymphoma Maternal Aunt Stomach cancer Maternal Uncle Bladder cancer Family history of problems with anesthesia: No Surgical History Surgical History History of esophagogastroduodenoscopy (EGD) H/O colonoscopy H/O: hysterectomy History of lumpectomy of left breast History of Problems with Anesthesia: No Social History Social History Household Members: Spouse Housing: House Alcohol intake: former Patient Tobacco Use Status: Never used Tobacco e-Cigarette/Vaping Use: Never Used Second Hand Smoke Exposure: No Use of substances other than those prescribed or required for medical reasons: No Are you DNR?: No Advance Directives: No Advance Directives Information Provided: Yes service: No Current occupational status: retired Current occupational exposures/hazards: No Cognitive needs: No Hearing needs: No Vision needs: No Meds Allergies Allergy/AdvReac Type Severity Reaction Status Date / Time shellfish derived AdvReac Mild Hives Verified 06/23/23 13:03 Active Medications: Current Medications Lactated Ringer's (Lr) 1,000 mls @ 50 mls/hr IVCONT .Q20H [place] Exam Height,Weight and Vital Signs: Height 5 ft 3 in Weight 62.823 kg Last Vital Signs Temp 99.1 F 09/04/23 12:31 Pulse 76 09/04/23 12:31 Resp 16 09/04/23 12:31 BP 129/72 09/04/23 12:31 Pulse Ox 96 09/04/23 12:31 O2 Del Method Room Air 09/04/23 12:31 Airway Mallampati Class: II TM Dist: >3cm Neck ROM: Full Heart: rrr Lungs: cta Assessment and Plan Assessment Anesthesia Assessment: Anesthesia Plan Discussed and Chart Reviewed Final Anesthetic Review Family History of Problems with Anesthesia: No History of Problems with Anesthesia: No NPO: Yes ASA Class: II Final Preanesthetic Review: No Changes in Pt Med Stat, Meds/Allgs Chart Reviewed and Consent Obtained/Reviewed Patient Risk: Low Procedure Risk: Low Anesthetic Plan Anesthetic Plan: MAC: Disposition: Standard PACU
[2023-09-04 12:43] LABS: Glucose, Whole Blood 70 mg/dL (60-115)
[2023-09-04] MEDS: Lactated Ringers 1,000 ML 50 ML IVCONT (12:47)
--- NOTE | 2023-09-04 13:27 | MHC.SHP ---
Pre-Procedural Eval Section A - 24 Hr Update-Section A only Date of Service: 09/04/23 The patient is an INPATIENT: No The patient has been examined within 24 hours of the surgical procedure. The History & Physical has been completed within 30 days and I have reviewed it.: No Section B - Complete if H&P > 30 days Chief Complaint: Surveillance of colon polyps Relevant Family History (Specify if Yes): No Relevant Social History: None Present Medications: see Short Stay Collaborative assessment Medical History: Significant History (Asthma Back pain Breast cancer Skin cancer Type 2 diabetes mellitus Uterine cancer) History of Previous Operations: Relevant previous surgery/procedure and date(s) (H/O colonoscopy H/O: hysterectomy History of esophagogastroduodenoscopy (EGD) History of lumpectomy of left breast) Allergies: Allergies Allergy/AdvReac Type Severity Reaction Status Date / Time shellfish derived AdvReac Mild Hives Verified 06/23/23 13:03 Review of Systems Sugical H&P ROS: Negative: Constitution, Cardiovascular, Respiratory and Gastrointestinal Exam Surgical H&P Exam: Normal: Heart, Normal: Lungs, Normal: Extremities and Normal: Abdomen Plan Diagnosis/Plan: Unchanged I have reviewed the history and physical and performed a pertinent physical examination on my patient. No changes have occurred unless specified. Time Spent With Patient Time: Total time managing care of this patient today ____ minutes.
--- NOTE | 2023-09-04 13:28 | W.PM.OPN ---
Operative Note Operative Note Date of Service: 09/04/23 Narrative: COLONOSCOPY TILL CECUM WITH SNARE POLYPECTOMY AND BIOPSIES Pre-op diagnosis: Surveillance for colon polyps. Post-op diagnosis:? Colon polyps, Diverticulosis, hemorrhoids Endoscopist:? Jasmina Mueller MD Anesthesia:?MAC Consent: Indications for the procedure and potential complications of bleeding, perforation, reaction to medications and missed diagnosis were discussed with the patient and informed consent was obtained. Instrument: Olympus CF H 190 L variable stiffness adult colonoscope Monitoring: Vital signs and clinical assessment, intermittent blood pressure monitoring, continuous EKG monitoring, Pulse oximetry and Carbon Dioxide monitoring were done throughout the procedure. Please see anesthesia flowsheet. Colon withdrawl time was 26 minutes. Procedure: The patient was placed in the left lateral decubitis position and pre-procedure medications were administered. After a digital rectal examination of the ano-rectum, the video colonoscope was inserted into the rectum and advanced through the colon to the cecum. The colonoscope was slowly withdrawn in a retrograde panoramic fashion and the colon mucosa was carefully examined including a retroflexed view of the rectum. Findings and interventions are described below. Procedure Difficulty: Colon was long and tortuous and there was recurrent loop formation Findings: Terminal Ileum: Not evaluated Cecum: Normal Ascending Colon: A 2-3 mm sessile polyp in the mid AC - removed with a cold biopsy. No recurrent/residual polyp seen in the distal AC despite multiple passes (Polypectomy site was not identified) Transverse Colon: Polypectomy site noted at 80 cms with edematous folds which were biopsied. Two 8-10 mm areas of adenomatous appearing tissue - removed with a hot snare. Descending Colon: Moderate diverticulosis Sigmoid Colon: A 4-5 mm sessile polyp - removed with a cold biopsy. Moderate diverticulosis Rectum: Normal Ano-rectum: Moderate internal hemorrhoids Colon preparation: Good after copious irrigation. [place] Bowel Preparation Scale Right colon; 2 Transverse colon: 2 Left colon; 2 (0 = Unprepared colon segment with mucosa not seen due to solid stool that cannot be cleared. 1 = Portion of mucosa of the colon segment seen, but other areas of the colon segment not well seen due to staining, residual stool and/or opaque liquid. 2 = Minor amount of residual staining, small fragments of stool and/or opaque liquid, but mucosa of colon segment seen well. 3 = Entire mucosa of colon segment seen well with no residual staining, small fragments of stool or opaque liquid) Impression and Post Procedure Diagnosis: Colonoscopy Findings: Two small polyps were removed Polypectomy site noted at 80 cms with edematous folds which were biopsied. Two 8-10 mm areas of adenomatous appearing tissue - removed with a hot snare. Moderate diverticulosis seen in the left colon Moderate hemorrhoids on retroflexed exam. Plan: Pt has a FU appointment on 10/05/[address] Mueller Repeat Colonoscopy in 3 years if polyps are adenomatous and due to a history of sessile serrated polyps. Above findings were reviewed with the patient and relevant handouts were given and the discharge area.
[2023-09-04 14:17] VITALS: BP 108/58; PULSE 89; RESP 16; TEMP 36.3; O2SAT 98
[2023-09-04 14:39] VITALS: BP 109/65; PULSE 78; RESP 18; TEMP 36.1; O2SAT 99
== END 2023-09-04 15:23 | disposition home or self-care (01) ==
PROVIDERS: PCP Family Medicine; Visit Provider Internal Medicine Gastroenterology
PROC: 0DJD8ZZ Inspection of Lower Intestinal Tract, Via Natural or Artificial Opening Endoscopic (ICD-10-PCS; CPT 45378; principal; 2023-09-04 14:50)
DX: Z12.11 Encounter for screening for malignant neoplasm of colon (principal); K63.5 Polyp of colon; K57.30 Diverticulosis of large intestine without perforation or abscess without bleeding; K64.8 Other hemorrhoids; K56.2 Volvulus; Z86.010 Personal history of colon polyps; E11.9 Type 2 diabetes mellitus without complications; Z85.3 Personal history of malignant neoplasm of breast; Z85.828 Personal history of other malignant neoplasm of skin; Z85.42 Personal history of malignant neoplasm of other parts of uterus; E55.9 Vitamin D deficiency, unspecified; K21.9 Gastro-esophageal reflux disease without esophagitis; R74.8 Abnormal levels of other serum enzymes; D18.03 Hemangioma of intra-abdominal structures
CPT/HCPCS: 45385; 45380; 82947; 88305; J2704

== ENCOUNTER → 2023-09-04 12:01 | Outpatient (BNV) | payer OTHER, SELFPAY | PROVIDERS: PCP Family Medicine; Visit Provider Internal Medicine Gastroenterology | DX: Z12.11 Encounter for screening for malignant neoplasm of colon (principal); Z86.010 Personal history of colon polyps; K63.5 Polyp of colon; K57.90 Diverticulosis of intestine, part unspecified, without perforation or abscess without bleeding; K64.8 Other hemorrhoids | CPT/HCPCS: 45380; 45385 ==

== ENCOUNTER 2023-09-14 07:14 | Outpatient (REF) | payer OTHER, SELFPAY ==
[2023-09-14 11:37] LABS: Estimated Average Glucose 97 mg/dL
[2023-09-14 12:01] LABS: Alanine Aminotransferase 20 U/L (0-31); Albumin Level 4.2 g/dL (3.5-5.0); Alkaline Phosphatase 127 U/L (39-117); Anion Gap 16 (12-20); Aspartate Amino Transferase 18 U/L (5-31); Bilirubin Total 0.5 mg/dL (0.0-1.0); Blood Urea Nitrogen 17 mg/dL (9-16); Calcium 9.8 mg/dL (8.4-10.2); Carbon Dioxide 28 mmol/L (22-29); Chloride 102 mmol/L (96-108); Cholesterol 197 mg/dL (<200); Estimated Glomerular Filt Rate > 60; Glucose Fasting 73 mg/dL (60-99); HDL Cholesterol 52 mg/dL (>40); LDL Cholesterol Calculated 111 mg/dL (<100); Potassium 4.1 mmol/L (3.3-5.1); Sodium 142 mmol/L (135-145); Triglycerides 174 mg/dL (<150)
== END 2023-09-14 07:15 | disposition home or self-care (01) ==
LOC: HO.WFDLDS 07:14
PROVIDERS: Visit Provider Family Medicine
DX: Z00.00 Encounter for general adult medical examination without abnormal findings (principal); E11.9 Type 2 diabetes mellitus without complications
CPT/HCPCS: 36415; 80053; 80061; 83036

== ENCOUNTER 2023-09-27 14:33 | Outpatient (AMB) | payer OTHER, SELFPAY ==
--- NOTE | 2023-09-27 14:41 | MHC.PC.OV ---
Vital Signs 09/27/23 14:43 Height 5 ft 3 in Weight 135 lb BMI 23.9 BP 100/60 Blood Pressure Location Lt brachial Position Sitting Pulse 79 Pulse Source Pulse Oximeter Temp 97.6 F Temp Source Oral Pulse Oximetry (%) 99 Oxygen Delivery Method Room Air Intake Visit Reasons: f/u diabetes and lipids Intake Note: Patient is here for follow up on diabetes and lipids today, she also states she has a consistent pain in her back, behind the breasts. She states it feels like a fist in her back, has been on/off for 2 years, now constantly. Allergies shellfish derived Adverse Reaction (Mild, Verified 09/27/23 14:45) Hives Medication List - Last Reconciled 09/27/23 by Edgar Dotson MD albuterol sulfate 90 mcg/actuation 1 puff inhalation Q4H PRN ergocalciferol (vitamin D2) 1,250 mcg PO QWEEK 1 month famotidine 20 mg PO BID 90 days metformin 500 mg PO BID semaglutide (Ozempic) 0.5 mg (0.736 mL) subcut QWEEK 12 weeks Tobacco use date assessed: 06/23/23 Dental Screening Dental Screen Date: 06/09/23 HPI f/u diabetes and lipids HPI Details 63 y/o female presents to f/u diabetes and lipids. Last A1c 09/14/23 5.0%. She is on ozempic and metformin 500mg b.i.d. She denies any problems with her medication regimen. Labs were drawn 09/14/23. Reviewed labs with pt. Triglycerides 174. TC 197. LDL 111. HDL 52. Pt reports back pain, intermittent x2 years. Pt describes pain as behind her breast and states it feels like there is a fist in her body . Pain wraps around to her back. HPI Comments History of Present Illness Details Documentation assistance for Edgar Dotson MD, was provided by Tonio Mason,? 3D Animator on 09/27/2023 3:23 PM EST. I, Dr. Dotson, have read, observed, and verified documentation. COUNT INCLUDES THE [facility] Medical History (Updated 09/27/23 @ 15:38 by Tonio Mason) Type 2 diabetes mellitus Asthma Skin cancer Uterine cancer Breast cancer Back pain Surgical History (Updated 09/14/23 @ 14:08 by Elyssa Sanchez) History of esophagogastroduodenoscopy (EGD) H/O colonoscopy H/O: hysterectomy History of lumpectomy of left breast Family History Mother Non-Hodgkin lymphoma Maternal Aunt Stomach cancer Maternal Uncle Bladder cancer Social History Household Members: Spouse Housing: House Alcohol intake: former Patient Tobacco Use Status: Never used Tobacco e-Cigarette/Vaping Use: Never Used Second Hand Smoke Exposure: No service: No Current occupational status: retired Current occupational exposures/hazards: No Cognitive needs: No Hearing needs: No Vision needs: No Questionnaire Thrive Questionnaire Date Thrive assessed: 09/05/22 I am a: Patient What is your living situation today?: I have a steady place to live Within the past 12 months, did the food you bought not last and you didn't have the money to get more?: Never true Within the past 12 months, did you worry whether your food would run out before you got money to buy more?: Never true Please select the resources that you would like help with: None THRIVE Score: 0 JUDY-7 AMB Questionnaire JUDY-7 Date JUDY - 7 assessed: 09/05/22 Source: Developed by Drs. Silverio Dooley, Yani Hull, Adonis Umanzor and colleagues, with an educational emma from [employer]. Review of Systems Const Denies chills, Denies fatigue, Denies fever(s), Denies headache(s) and Denies weakness ENT Denies dizziness and Denies headache(s) Card Denies dyspnea Resp Denies cough, Denies dyspnea, Denies wheezing and Denies other (shortness of breath) Musc Reports back pain, Denies numbness and Denies tingling Neuro Denies dizziness, Denies headache(s), Denies numbness, Denies tingling and Denies weakness Psych Denies anxiety and Denies depression Endo Denies fatigue Aller/Immun Denies wheezing Physical exam (Primary Care) Vital Signs: Last Vital Signs Temp 97.6 F 09/27/23 14:43 Pulse 79 09/27/23 14:43 BP 100/60 09/27/23 14:43 Pulse Ox 99 09/27/23 14:43 Oxygen Delivery Method Room Air 09/27/23 14:43 BMI result Body Mass Index 23.9 Tobacco/Smoking Status: Tobacco use Status Tobacco use date assessed 06/23/23 09/27/23 14:42 Patient Tobacco Use Status Never used Tobacco 09/27/23 14:42 e-Cigarette/Vaping Use Never Used 09/27/23 14:42 Thrive Assessment: Date of Thrive Assessment Date Thrive assessed 09/05/22 09/27/23 14:42 Const General: well developed; No acute distress Nutritional Appearance: well nourished Orientation/consciousness: patient oriented x3 HENMT Head: Yes normocephalic and Yes atraumatic Eyes General: appearance normal, both eyes and all related structures Pupils: Equal, round and reactive pupils present EOM: EOMs intact bilaterally Resp Effort & Inspection: normal respiratory effort Neuro General: patient oriented x3 and gait normal Cranial nerves: Yes Equal, round and reactive pupils present Psych Affect: normal affect Assessment and Plan Assessment & Plan (1) Type 2 diabetes mellitus: Code(s): E11.9 - Type 2 diabetes mellitus without complications Plan: A1c?5.0%.??Good?control.??Goal?is Less?than?7.0% Continue?Ozempic?and?metformin (2) Hyperlipidemia: Code(s): E78.5 - Hyperlipidemia, unspecified Plan: LDL?cholesterol?is?above?goal?of?less?than?100?for?patient?with?diabetes Discussed?Zetia.??She?would?like?to?trial?3?more?months?of?lifestyle?changes?but?has?said?she?would?consider?Zetia?if?she?is?unable?to?get?to?goal. (3) Hypertriglyceridemia: Code(s): E78.1 - Pure hyperglyceridemia Plan: Encouraged?diet?lower?in?saturated?fats?and?cholesterol (4) Mid back pain on left side: Code(s): M54.9 - Dorsalgia, unspecified Plan: Left-sided?back?pain?which?were?radiates?around?left?ribs History?of?osteoporosis.??Also?history?of?breast?cancer Check?x-rays Orders: Orders XR ribs LT min 3V w CXR1V Today M54.9 - Dorsalgia, unspecified, M81.0 - Age-related osteoporosis without current pathological fracture, Z85.3 - Personal history of malignant neoplasm of breast XR thoracic spine 2V Today M54.9 - Dorsalgia, unspecified, M81.0 - Age-related osteoporosis without current pathological fracture, Z85.3 - Personal history of malignant neoplasm of breast Coding Level of Care Code Est Pt Level 4 (82574) Diagnoses Type 2 diabetes mellitus E11.9 Hyperlipidemia E78.5 Hypertriglyceridemia E78.1 Mid back pain on left side M54.9
[2023-09-27 14:43] VITALS: BP 100/60; PULSE 79; TEMP 36.4; O2SAT 99; BMI 23.9
== END 2023-09-27 15:36 | disposition home or self-care (01) ==
PROVIDERS: PCP Hospitalist; Visit Provider Family Medicine
DX: E11.9 Type 2 diabetes mellitus without complications (principal); E78.5 Hyperlipidemia, unspecified; E78.1 Pure hyperglyceridemia; M54.9 Dorsalgia, unspecified
CPT/HCPCS: 99214

== ENCOUNTER 2023-09-28 07:39 | Outpatient (REF) | payer OTHER, SELFPAY ==
--- NOTE | ~2023-09-28 | XR_ITS ---
EXAMINATION: XR THORACOLUMBAR SPINE CLINICAL INFORMATION: Pain in dorsal spine COMPARISON: None available. TECHNIQUE: 2 views of thoracic spine FINDINGS: Small dextroscoliosis of the upper thoracic spine. No bone destruction of bone lesion. No fracture. No paraspinal soft tissue abnormality. XR/XR thoracic spine 2V IMPRESSION: 1. No acute abnormality. 2. Small dextroscoliosis of upper thoracic spine.
--- NOTE | ~2023-09-28 | XR_ITS ---
EXAMINATION: XR RIBS, LEFT CLINICAL INFORMATION: History of breast cancer. Left rib pain. COMPARISON: None available. TECHNIQUE: Frontal view of chest. 3 views of the left ribs were obtained. A BB has been placed in the area of clinical concern at the lower left rib FINDINGS: Lungs are clear. No consolidation, pneumothorax, or pleural effusion. The cardiomediastinal silhouette and pulmonary vasculature are normal. There is an old healed fracture of the left posterior lateral ninth rib. No acute rib fracture. No focal bone lesions. No bone destruction. XR/XR ribs LT min 3V w CXR1V IMPRESSION: 1. No acute abnormality of the chest. 2. Old healed fracture of the left posterior lateral ninth rib. No focal bone lesion or bone destruction.
== END 2023-09-28 07:40 | disposition home or self-care (01) ==
LOC: HO.XRAY 07:39
PROVIDERS: PCP Family Medicine; Visit Provider Family Medicine
DX: M54.9 Dorsalgia, unspecified (principal); M81.0 Age-related osteoporosis without current pathological fracture; Z85.3 Personal history of malignant neoplasm of breast
CPT/HCPCS: 71101; 72070

== ENCOUNTER 2023-10-05 07:43 | Outpatient (AMB) | payer OTHER, SELFPAY ==
--- NOTE | 2023-10-05 07:45 | A.OFFVIS_ITS ---
Intake Vital Signs 10/05/23 08:06 Height 5 ft 3 in Weight 135 lb BMI 23.9 BP 115/68 Blood Pressure Location Lt brachial Position Sitting Pulse 74 Intake Visit Reasons: S/p colon Intake Note: Patient follow up for Colonoscopy results. Patient cc: occasional abdominal pain on and off. Denies any other GI issues. 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 Pt reports a hx of pre diabetes, gallstones, suspected insulin resistance, NAFL, hepatic steatosis, elevated alkaline phosphatase and large cavernous hemangiomas in the liver She has a history of breast and uterine cancer Outside labs showed elevated glucose, AP, CRP and borderline increase in Insulin and Hb A1C LABS IN [facility] : 12/2021 outside labs showed normal CBC, TSH and iron studies. LFTs showed normal LFTs except mild increase in alkaline phosphatase to 141, GGT was normal at 29 03/2022 AP increased to 157 (normal 35 - 104) MADY was negative Vitamin D was 40.6 Ferritin 182 IMAGING STUDIES:? 08/2022 abd us showed: Several hypoechoic liver lesions measuring up to 5.3 cm in the right hepatic lobe, incompletely characterized sonographically. Recommend further evaluation with contrast enhanced MR abdomen. ? Cholelithiasis without evidence of acute cholecystitis. ? A 1 cm echogenic avascular splenic lesion, possibly hemangioma. Attention on follow-up MR, although this may remain too small to definitively characterize. ? 2 circumscribed echogenic left renal les ions which may reflect small angiomyolipomas. ? ENDOSCOPIC STUDIES: 09/19/22 EGD AND COLON SHOWED: Endoscopy Findings: STOMACH: Mild diffuse gastric erythema with a few linear erosions in the antrum. Biopsies were obtained. DUODENUM: Normal - biopsied to check for celiac sprue Colonoscopy Findings: Three large sized polyps removed Moderate diverticulosis seen in the sigmoid colon Moderate hemorrhoids on retroflexed exam. Plan: Repeat Colonoscopy interval based on path results - in 6 months to check? polypectomy site if polyps are adenomatous and 5 years if polyps are hyperplastic (due to a hx of colon polyps). TODAY'S VISIT: Colonoscopy results reviewed. Noted abdominal pain for a few days after the procedure and continues to note brief twinges of pain 1-2 times a week lasting for a few seconds. Had breast cancer in 2010 and was treated with surgery followed by XRT PAST VISITS: Pt was seeing a Sales Training Manager (Dr Maher) and was treated for leaky gut. Stopped sugars, dairy and gluten from 01/2022 to 05/2022 and lost 5 lbs without improvement in labs She was started on metformin Pt is 3 years over due for a colonoscopy (last colonoscopy was in 2014) Pt is a breast cancer survivor - diagnosed in 2011 (4 surgeries for the breast) Diagnosed with uterine cancer 5 yrs later. Elevated LFTs for several yrs (2011) and diagnosed with DIETZ and Has gained 25 lbs and notes burning sensation in the chest and bloating. Denies acid regurgitation or dysphagia Has been working out Patient denies symptoms of nausea, vomiting.? Denies recent change in bowel habits, constipation, black stools or rectal bleeding. Sometimes has softer stools - 1-2 times a day, Patient denies major cardiac or pulmonary problems, loud snoring or sleep apnea. Mild snoring. Barely drink - 1/2 glass of wine /week Denies smoking. Denies problems with anesthesia in the past. Denies being on chronic anticoagulation. Patient denies known family history of colon polyps, colon cancer or other GI malignancies. 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 Hemorrhoids were detected. Repeat colonoscopy was advised in 5 years. PAST GI HISTORY BY REVIEW OF MEDICAL RECORDS: Outside labs were reviewed [facility] Medical History (Updated 09/27/23 @ 15:38 by Tonio Mason) Type 2 diabetes mellitus Asthma Skin cancer Uterine cancer Breast cancer Back pain Surgical History History of esophagogastroduodenoscopy (EGD) H/O colonoscopy H/O: hysterectomy History of lumpectomy of left breast Family History Mother Non-Hodgkin lymphoma Maternal Aunt Stomach cancer Maternal Uncle Bladder cancer Social History Household Members: Spouse Housing: House Alcohol intake: former Patient Tobacco Use Status: Never used Tobacco e-Cigarette/Vaping Use: Never Used Second Hand Smoke Exposure: No service: No Current occupational status: retired Current occupational exposures/hazards: No Cognitive needs: No Hearing needs: No Vision needs: No Review of Systems Const All systems reviewed & are unremarkable except as noted in HPI and below Physical Exam Vital Signs: Last Vital Signs Pulse 74 10/05/23 08:06 BP 115/68 10/05/23 08:06 BMI result Body Mass Index 23.9 Const General: healthy appearing and no acute distress Nutritional Appearance: average body habitus Orientation/consciousness: patient oriented x3 Limitations: no limitations HEENT Head: Yes normal to inspection Ears: hearing grossly normal bilaterally Eyes Sclerae: sclerae normal Pupils: Equal, round and reactive pupils present Neck Neck: Yes normal visual inspection Chest Chest palpation & inspection: normal inspection of the chest Resp Effort & Inspection: normal respiratory effort Auscultation: clear to auscultation bilaterally Cardio Palpation: normal PMI Rate: regular rate Rhythm: regular rhythm Heart sounds: S1 normal heart sound present, S2 normal heart sound present and no murmurs GI Palpation (GI): Soft to palpation, nontender and No hepatosplenomegaly present Auscultation: normal bowel sounds Rectal Exam - Female: deferred Skin General skin exam: no rashes or lesions noted Neuro General: patient oriented x3, gait normal and moves all extremities Cranial nerves: Yes Equal, round and reactive pupils present Psych Appearance: grossly normal Mental Status: mental status grossly normal Assessment & Plan Assessment & Plan (1) Elevated alkaline phosphatase level: Code(s): R74.8 - Abnormal levels of other serum enzymes (2) GERD (gastroesophageal reflux disease): Code(s): K21.9 - Gastro-esophageal reflux disease without esophagitis (3) Cavernous hemangioma of liver: Code(s): D18.03 - Hemangioma of intra-abdominal structures (4) History of colon polyps: Comment: 09/2022 colonoscopy was performed and three large sessile serrated polyps were removed. Repeat colonoscopy scheduled on 04/14/23 to check polypectomy sites in the ascending and transverse colon Code(s): Z86.010 - Personal history of colonic polyps Plan 62 YF with pre diabetes, gallstones, suspected insulin resistance, NAFL, hepatic steatosis, elevated alkaline phosphatase and large cavernous hemangiomas in the liver referred to GI for evaluation of elevated LFTs (since 2011) and to schedule a screening colonoscopy (fu of a small adenomatous colon polyp). Isolated elevation of ALK P can be due to PBC, PSC, related to medications or from non-hepatic source. Pt reports burning sensation in the chest and bloating - will check for celiac sprue Pt was advised repeat labs. Start famotidine 20 mg at bedtime for upper GI symptoms. 09/2022 upper endoscopy and colonoscopy were performed and results as noted above Three large sessile serrated polyps were removed during colonoscopy 08/2023 Repeat colonoscopy was performed to check polypectomy sites in the ascending and transverse colon - findings as noted above 10/05/23 Colonoscopy results reviewed. Noted abdominal pain for a few days after the procedure and continues to note brief twinges of pain 1-2 times a week lasting for a few seconds. FU in 5 months with repeat labs FROM UPTODATE: In patients with intrahepatic cholestasis, antimitochondrial antibodies (AMA), antinuclear antibodies, and antismooth muscle antibodies should be checked. If present, AMA are highly suggestive of PBC, and a liver biopsy may be considered to confirm the diagnosis. If AMA are absent, additional testing includes: ?MRCP to look for evidence of primary sclerosing cholangitis ?Testing for hepatitis A, B, C, and E ?Testing for Nader-Wren virus and cytomegalovirus If the above tests are negative and the alkaline phosphatase is persistently more than two times the upper limit of normal for more than six months, we obtain a liver biopsy. A liver biopsy may reveal evidence of an infiltrative disease (eg, sarcoidosis, malignancy) or other causes of cholestasis, such as vanishing bile duct syndrome and idiopathic adulthood bile ductopenia. If the alkaline phosphatase is less than two times the upper limit of normal, all of the other liver biochemical tests are normal, and the patient is asymptomatic, we suggest observation alone, since further testing is unlikely to influence management Coding Level of Care Code Est Pt Level 4 (52064) Diagnoses Elevated alkaline phosphatase level R74.8 GERD (gastroesophageal reflux disease) K21.9 Cavernous hemangioma of liver D18.03 History of colon polyps Z86.010 Time Spent (min) 16
[2023-10-05 08:06] VITALS: BP 115/68; PULSE 74; BMI 23.9
== END 2023-10-05 08:25 | disposition home or self-care (01) ==
PROVIDERS: PCP Hospitalist; Referring Provider Hospitalist; Visit Provider Internal Medicine Gastroenterology
DX: R74.8 Abnormal levels of other serum enzymes (principal); K21.9 Gastro-esophageal reflux disease without esophagitis; D18.03 Hemangioma of intra-abdominal structures; Z86.010 Personal history of colon polyps
CPT/HCPCS: 99214

== ENCOUNTER → 2023-10-05 07:43 | Outpatient (BNVA) | payer OTHER, SELFPAY | PROVIDERS: PCP Hospitalist; Visit Provider Internal Medicine Gastroenterology | DX: R74.8 Abnormal levels of other serum enzymes (principal); K21.9 Gastro-esophageal reflux disease without esophagitis; D18.03 Hemangioma of intra-abdominal structures; Z86.010 Personal history of colon polyps | CPT/HCPCS: 99212 ==

== ENCOUNTER → 2023-10-05 16:23 | Outpatient (AMB) | payer OTHER, SELFPAY ==
--- NOTE | 2023-10-05 16:15 | MHC.PC.OV ---
Intake Visit Reasons: xray results/discuss PT Intake Note: Patient is following up on x-rays and discussion of physical therapy. Allergies shellfish derived Adverse Reaction (Mild, Verified 10/05/23 16:17) Hives Medication List - Last Reconciled 10/05/23 by Edgar Dotson MD albuterol sulfate 90 mcg/actuation 1 puff inhalation Q4H PRN ergocalciferol (vitamin D2) 1,250 mcg PO QWEEK 1 month famotidine 20 mg PO BID 90 days metformin 500 mg PO BID semaglutide (Ozempic) 0.5 mg (0.736 mL) subcut QWEEK 12 weeks Tobacco use date assessed: 10/05/23 Dental Screening Dental Screen Date: 10/05/23 Did you have a dental visit in the last 12 months?: Yes Did you have a dental problem in the last 6 months where you did not have access to dental care?: No Was dental information given to patient?: Patient has dentist HPI xray results/discuss PT HPI Details 63 y/o female presents to discuss x-ray results/PT via telemedicine. Ordered x-rays for back pain under L shoulder blade and warapping around L ribs. Ribs x-ray 09/28/23 shoed no acute abnormality of the chest. Old healed fracture of L posterior lateral ninth rib. No focal bone lesion or bone destruction. Thoracic spine x-ray 09/28/23 showed no acute abnormality. Small dextroscoliosis of upper thoracic spine. Pt reports this pain has been intermittent for a couple years. She has been taking ibuprofen for the pain which does help. [facility] Medical History Type 2 diabetes mellitus Asthma Skin cancer Uterine cancer Breast cancer Back pain Surgical History History of esophagogastroduodenoscopy (EGD) H/O colonoscopy H/O: hysterectomy History of lumpectomy of left breast Family History Mother Non-Hodgkin lymphoma Maternal Aunt Stomach cancer Maternal Uncle Bladder cancer Social History Household Members: Spouse Housing: House Alcohol intake: former Patient Tobacco Use Status: Never used Tobacco e-Cigarette/Vaping Use: Never Used Second Hand Smoke Exposure: No service: No Current occupational status: retired Current occupational exposures/hazards: No Cognitive needs: No Hearing needs: No Vision needs: No Questionnaire PHQ-9 Over the last 2 weeks, how often have you been bothered by any of the following problems? 1. Little interest or pleasure in doing things: not at all 2. Feeling down, depressed, or hopeless: not at all 3. Trouble falling or staying asleep, or sleeping too much: not at all 4. Feeling tired or having little energy: not at all 5. Poor appetite or overeating: not at all 6. Feeling bad about yourself - or that you are a failure or have let yourself or your family down: not at all 7. Trouble concentrating on things, such as reading the newspaper or watching television: not at all 8. Moving or speaking so slowly that other people could have noticed. Or the opposite - being so fidgety or restless that you have been moving around a lot more than usual: not at all 9. Thoughts that you would be better off or of hurting yourself in some way: not at all Total score: 0 Depression Screening Interpretation: Negative Depression Screening Done: Yes Source: Developed by Drs. Silverio Dooley, Yani Hull, Adonis Umanzor and colleagues, with an educational emma from [employer]. Thrive Questionnaire Date Thrive assessed: 09/05/22 I am a: Patient What is your living situation today?: I have a steady place to live Within the past 12 months, did the food you bought not last and you didn't have the money to get more?: Never true Within the past 12 months, did you worry whether your food would run out before you got money to buy more?: Never true Do you have trouble paying for medicines?: No Do you have trouble getting transportation to medical appointments?: No Do you have trouble paying your heating and electricity bill?: No Do you have trouble taking care of your child, family member or friend?: No Do you have trouble with day-to-day activities such as bathing, preparing meals, shopping, managing finances, etc.?: No Are you currently unemployed and looking for a job?: Yes Are you interested in more education?: No THRIVE Score: 0 AUDIT C Alcohol Use Questionnaire (AUDIT-C) 1. How often do you have a drink containing alcohol?: Monthly or less 2. How many drinks containing alcohol do you have on a typical day when you are drinking?: 1 or 2 3. How often do you have six or more drinks on one occasion?: Never Total Score: 1 JUDY-7 AMB Questionnaire JUDY-7 Date JUDY - 7 assessed: 10/05/23 Feeling nervous, anxious, or on edge: 0 = Not at all Not being able to stop or control worryin = Not at all Worrying too much about different things: 0 = Not at all Trouble relaxin = Not at all Being so restless that it is hard to sit still: 0 = Not at all Becoming easily annoyed or irritable: 0 = Not at all Feeling afraid as if something awful might happen: 0 = Not at all Total JUDY-7 score (0-4 normal; 5-9 mild; 10-14 moderate; 15-21 severe): 0 Source: Developed by Drs. Silverio Dooley, Yani Hull, Adonis Umanzor and colleagues, with an educational emma from [employer]. Physical exam (Primary Care) Tobacco/Smoking Status: Tobacco use Status Tobacco use date assessed 10/05/23 10/05/23 16:18 Patient Tobacco Use Status Never used Tobacco 10/05/23 16:18 e-Cigarette/Vaping Use Never Used 10/05/23 16:18 PHQ-9: PHQ-9 Score PHQ-9: Total score 0 10/05/23 16:41 Depression Screening Interpretation: Negative Thrive Assessment: Date of Thrive Assessment Date Thrive assessed 09/05/22 10/05/23 16:18 Telehealth Telehealth Location of provider rendering services: practice address Location of patient: address on file Patient Identification confirmed using: Name, : Yes Telehealth method: voice only Patient verbally consented to treatment: Yes Patient verbally consented to billing insurance company: Yes Patient informed of any privacy concerns related to visit: Yes Minutes spent on Phone/Video with Pt.: 9 Assessment and Plan Assessment & Plan (1) Mid back pain on left side: Code(s): M54.9 - Dorsalgia, unspecified Plan: X-ray?shows?an?old?on?9?rib?fracture?which?is?healed - she?notes?she?did?have?a?fall?about?a?year?ago.??She?also?has?osteoporosis. Ibuprofen?helps?though?she?is?hesitant?to?take?this?and?I?encouraged?her?to?use?it?when?she?needs?it.??She?can?also?use?some?Tylenol.??Ice/heat. Will?have?her?try?physical?therapy?and?if?not?improving?can?refer?her?to?Ortho. (2) Osteoporosis: Code(s): M81.0 - Age-related osteoporosis without current pathological fracture Plan: Start?alendronate Risks/benefits?were?discussed Will?follow?bone?density?every?2?years. Orders: Orders PT Evaluation and Treatment Today M54.9 - Dorsalgia, unspecified Medications: New alendronate 70 mg PO QWEEK 28 days 4 tabs 3RF M81.0 - Age-related osteoporosis without current pathological fracture Coding Level of Care Code Tele Est Pt Level 2 (12103) Diagnoses Mid back pain on left side M54.9 Osteoporosis M81.0
== END ==
LOC: HO.HMGFM 16:23
PROVIDERS: PCP Hospitalist; Visit Provider Family Medicine
DX: M54.9 Dorsalgia, unspecified (principal); M81.0 Age-related osteoporosis without current pathological fracture
CPT/HCPCS: 99213

== ENCOUNTER 2023-11-01 11:00 | Outpatient (RCR) | payer OTHER, SELFPAY ==
--- NOTE | 2023-10-18 12:48 | MHC.PT.EP ---
[facility] [place] Office [place] Office [place] Office [address] Roe Beckwith [address] [phone] F: [phone] F: [phone] F: [phone] F: [phone] Physical Therapy Plan of Care Date of Evaluation: 10/18/23 Date of Surgery: NA Diagnosis: MID BACK PAIN ON L SIDE Assessment: Pt IS 63 YO RHD F WITH HX OF 5 SURGERIES (BREAST CA) L BREAST/CHEST REFERRED TO PT FROM DR SUAREZ WITH L SCAP/RIB/UPPER BACK PAIN. Pt REPORTS FEELS LIKE A KNOT OR A FIST IN L UPPER BACK MMS. Pt WITH HX OF L 9TH RIB FX. PRESENTS WITH GOOD OVERALL CERV AND SHLDER ROM BUT SOME DECREASED STRENGTHE NOTED L SHLDER. Pt WITH TTP L PARASPINALS IN LOW THORACIC AREA. SHOULD BENEFIT FROM PT TO ADDRESS THESE ISSUES Frequency and Duration: The patient will be seen 1-2X/WK X 6 WKS Short Term Goals: 1. INCREASED POSTURE AWARENESS AND AWARENESS OF UPPER BACK CARE 2. LOCALIZE [facility] Skilled Nursing Goals: 1. DECREASED PAIN/TIGHTNESS L UPPER BACK MMS AT LEAST 50% WITH ADLS 2. I HEP WITH DC EX PLAN Treatment Plan: Modalities to reduce pain, spasms and effusion. Manual therapy to restore motion and function. Therapeutic exercise to improve strength and flexibility. Neuromuscular re-education for posture and balance. Therapeutic activities to return to functional activities of daily living. Electronically signed by: COMFORT PENNINGTON PT Please sign and return to therapist. Thank you for your referral.
--- NOTE | 2024-01-22 14:26 | MHC.PT.DC ---
[facility] [place] Office [place] Office [place] Office [address] Roe Beckwith [address] [phone] F: [phone] F: [phone] F: [phone] F: [phone] Physical Therapy Discharge Report Diagnosis: MID BACK PAIN ON L SIDE Date of Surgery: NA Date of Evaluation: 10/18/23 Date of Discharge: 01/22/24 Treatments to Date: 2 Cancellations to Date: No Shows to Date: Discharge Status: Patient Elected to Stop Discharge Summary: TODAY IS Pt'S 2ND CX. THIS PT CALLED AND SPOKE WITH Pt WHO SEEMS AMBIVALENT ABOUT PT AND HOW MUCH IT CAN HELP AND WHAT IS THE SOURCE OF HER PAIN. REPORTS SOME THOUGHT ON HER PART RE [place] METS. TO SEE MD IN DECEMBER, BUT REPORTS MAY TRY TO GET AN EARLIER APPT (ALSO TO REVIEW NEW MED FOR OSTEOPOROSIS THAT IS GIVING HER SOME SIDE AFFECTS). REQUESTS TO KEEP CHART OPEN/ON HOLD UNTIL SHE SEES DR SUAREZ AND WILL CALL RE DECISION. OF NOTE, THIS PT EDUCATED Pt THAT SHE HAS ONLY HAD INIT EVAL AND 1 VISIT WHICH MAY NOT BE ENOUGH TO DETERMINE AFFECT OF PHYSICAL THERAPY INTERVENTION Pt DID NOT COME IN FOR FURTHER SESSIONS Electronically signed by: COMFORT PENNINGTON PT Please sign and return to therapist. Thank you for your referral.
== END 2024-01-22 14:27 | disposition home or self-care (01) ==
LOC: HO.PTWFD 11:00
PROVIDERS: PCP Family Medicine; Visit Provider Family Medicine
DX: M54.9 Dorsalgia, unspecified (principal)
CPT/HCPCS: 97110; 97140; 97161; 97535

== ENCOUNTER 2023-12-05 12:31 | Outpatient (REF) | payer OTHER, SELFPAY ==
--- NOTE | ~2023-12-05 | MM_ITS ---
EXAMINATION: MM SCREENING DIGITAL BREAST TOMOSYNTHESIS, BILATERAL CLINICAL INFORMATION: Screening. Asymptomatic. The patient has a history of conservatively treated left breast cancer and had a right breast reduction. She also reports having a left breast implant removed in the past. COMPARISON: Mammography: This study is compared with prior exams dating back to 2018. TECHNIQUE: Digital breast tomosynthesis is performed in both the craniocaudal and mediolateral oblique views along with computer-aided detection (CAD). Synthesized 2D images are generated from the tomosynthesis. FINDINGS: There are scattered areas of fibroglandular density (ACR BI-RADS breast composition Category b). There are no significant masses, abnormal calcifications, or other abnormalities. There are bilateral postsurgical changes. There is architectural change in the superior aspect of the left breast from prior cancer surgery. There are coarse, benign calcifications in the left breast as well. There are no cysts mammographic signs of malignancy in either breast. MM/MM tomosynthesis screening BI IMPRESSION: No mammographic evidence of malignancy. ASSESSMENT: BI-RADS BI-RADS 2 - Benign Findings RECOMMENDATION: Routine annual mammography screening. 1 year F/U This examination should not preclude the clinical evaluation of a suspicious palpable abnormality. This patient's information was entered into a reminder system with a target due date for their next mammogram.
== END 2023-12-05 12:32 | disposition home or self-care (01) ==
LOC: HO.MAMMO 12:31
PROVIDERS: PCP Family Medicine; Visit Provider Family Medicine
DX: Z12.31 Encounter for screening mammogram for malignant neoplasm of breast (principal)
CPT/HCPCS: 77063; 77067

== ENCOUNTER → 2023-12-05 13:15 | Outpatient (BNV) | payer OTHER, SELFPAY | PROVIDERS: PCP Family Medicine; Visit Provider Radiology Diagnostic Radiology | DX: Z12.31 Encounter for screening mammogram for malignant neoplasm of breast (principal) | CPT/HCPCS: 77063; 77067 ==

== ENCOUNTER 2023-12-27 10:27 | Outpatient (AMB) | payer OTHER, SELFPAY ==
[2023-12-27 10:36] VITALS: BP 116/64; PULSE 73; RESP 14; TEMP 36.6; O2SAT 99; BMI 23.1
--- NOTE | 2023-12-27 10:36 | MHC.PC.OV ---
Vital Signs 12/27/23 10:36 Height 5 ft 3 in Weight 130 lb 6 oz BMI 23.1 BP 116/64 Blood Pressure Location Rt brachial Position Sitting Respiration 14 Pulse 73 Pulse Source Pulse Oximeter Temp 97.8 F Temp Source Temporal Artery Scan Pulse Oximetry (%) 99 Oxygen Delivery Method Room Air Intake Visit Reasons: f/u diabetes, back pain Emergency Technician Required: No Accompanied by: Self / Same As Patient Allergies shellfish derived Adverse Reaction (Mild, Verified 12/27/23 10:48) Hives Medication List - Last Reconciled 12/27/23 by Edgar Dotson MD albuterol sulfate 90 mcg/actuation 1 puff inhalation Q4H PRN ergocalciferol (vitamin D2) 1,250 mcg PO QWEEK 1 month famotidine 20 mg PO BID 90 days metformin 500 mg PO BID semaglutide (Ozempic) 0.5 mg (0.736 mL) subcut QWEEK 12 weeks Tobacco use date assessed: 10/05/23 Dental Screening Dental Screen Date: 10/05/23 HPI f/u diabetes, back pain HPI Details 63 y/o female presents to f/u diabetes, back pain. Had trialed physical therapy and ibuprofen for back pain. She notes she felt like physical therapy was not for her though she has been swimming which has been working for her. She reports she has not been able to tolerate alendronate well for her osteoporosis. A1c today 12/27/23 5.2%. HPI Comments History of Present Illness Details Documentation assistance for Edgar Dotson MD, was provided by Tonio Mason,? [employer] Drying Machine Operator on 12/27/2023 at 11:05 AM FLORESITA. Taco, Dr. Dotson, have read, observed, and verified documentation. [facility] Medical History Type 2 diabetes mellitus Asthma Skin cancer Uterine cancer Breast cancer Back pain Surgical History History of esophagogastroduodenoscopy (EGD) H/O colonoscopy H/O: hysterectomy History of lumpectomy of left breast Family History Mother Non-Hodgkin lymphoma Maternal Aunt Stomach cancer Maternal Uncle Bladder cancer Social History Household Members: Spouse Housing: House Alcohol intake: former Patient Tobacco Use Status: Never used Tobacco e-Cigarette/Vaping Use: Never Used Second Hand Smoke Exposure: No service: No Current occupational status: retired Current occupational exposures/hazards: No Cognitive needs: No Hearing needs: No Vision needs: No Questionnaire Thrive Questionnaire Date Thrive assessed: 09/05/22 JUDY-7 AMB Questionnaire JUDY-7 Date JUDY - 7 assessed: 10/05/23 Source: Developed by Drs. Silverio Dooley, Yani Hull, Adonis Umanzor and colleagues, with an educational emma from [employer]. Review of Systems Const Denies chills, Denies fatigue, Denies fever(s), Denies headache(s) and Denies weakness ENT Denies dizziness and Denies headache(s) Card Denies dyspnea Resp Denies cough, Denies dyspnea, Denies wheezing and Denies other (shortness of breath) Musc Denies numbness and Denies tingling Neuro Denies dizziness, Denies headache(s), Denies numbness, Denies tingling and Denies weakness Psych Denies anxiety and Denies depression Endo Denies fatigue Aller/Immun Denies wheezing Physical exam (Primary Care) Vital Signs: Last Vital Signs Temp 97.8 F 12/27/23 10:36 Pulse 73 12/27/23 10:36 Resp 14 12/27/23 10:36 BP 116/64 12/27/23 10:36 Pulse Ox 99 12/27/23 10:36 Oxygen Delivery Method Room Air 12/27/23 10:36 BMI result Body Mass Index 23.1 Tobacco/Smoking Status: Tobacco use Status Tobacco use date assessed 10/05/23 12/27/23 10:45 Patient Tobacco Use Status Never used Tobacco 12/27/23 10:45 e-Cigarette/Vaping Use Never Used 12/27/23 10:45 Thrive Assessment: Date of Thrive Assessment Date Thrive assessed 09/05/22 12/27/23 10:45 Const General: well developed; No acute distress Nutritional Appearance: well nourished Orientation/consciousness: patient oriented x3 HENMT Head: Yes normocephalic and Yes atraumatic Eyes General: appearance normal, both eyes and all related structures Pupils: Equal, round and reactive pupils present EOM: EOMs intact bilaterally Resp Effort & Inspection: normal respiratory effort Neuro General: patient oriented x3 and gait normal Cranial nerves: Yes Equal, round and reactive pupils present Psych Affect: normal affect Assessment and Plan Assessment & Plan (1) Type 2 diabetes mellitus: Code(s): E11.9 - Type 2 diabetes mellitus without complications Plan: A1c?5.2%.??Good?control.??Goal?is?less?than?7.0% Continue?current?medications Continue?diet?low?in?sugars?and?starches.??Encouraged?exercise?and?weight?control. (2) Mid back pain on left side: Code(s): M54.9 - Dorsalgia, unspecified Plan: Improving?slowly. Had?referred?patient?to?physical?therapy?but?she?stop?this?and?is?getting?exercise?in?a?pool She?will?let?me?know?if?improvement?Enrico (3) Osteoporosis: Code(s): M81.0 - Age-related osteoporosis without current pathological fracture Plan: Patient?did?not?tolerate?alendronate?which?she?says?caused?GI?problems. Referred?to?Rheumatology (4) Recurrent UTI: Code(s): N39.0 - Urinary tract infection, site not specified Plan: Frequent?UTIs. Hydrate?well.??She?can?use?probiotics?and?cranberry?capsules. Will?give?her?a?script?for?Bactrim?and?she?can?drop?of?a?urine?sample?prior?to?starting?if?she?has?additional?symptoms. We?also?discussed?referral?to?urology?if?she?continues?to?have?frequent?UTIs?and?patient?agrees. Orders: Referrals Rheumatology Referral M81.0 - Age-related osteoporosis without current pathological fracture Medications: Changed From sulfamethoxazole-trimethoprim 800-160 mg (Bactrim DS) 1 tab PO Q12H 5 days 10 tabs 0RF To sulfamethoxazole-trimethoprim 800-160 mg (Bactrim DS) 1 tab PO Q12H 3 days 6 tabs 1RF Refilled semaglutide (Ozempic) 0.5 mg (0.736 mL) subcut QWEEK 12 weeks 9 mL 3RF Coding Level of Care Code Est Pt Level 4 (39655) Diagnoses Type 2 diabetes mellitus E11.9 Mid back pain on left side M54.9 Osteoporosis M81.0 Recurrent UTI N39.0
== END 2023-12-27 11:17 | disposition home or self-care (01) ==
PROVIDERS: PCP Family Medicine; Visit Provider Family Medicine
DX: E11.9 Type 2 diabetes mellitus without complications (principal); M54.9 Dorsalgia, unspecified; M81.0 Age-related osteoporosis without current pathological fracture; N39.0 Urinary tract infection, site not specified
CPT/HCPCS: 83036; 99214

== ENCOUNTER 2024-02-29 13:28 | Outpatient (AMB) | payer OTHER, SELFPAY ==
--- NOTE | 2024-02-29 13:29 | MHC.OFFVIS ---
Vital Signs 02/29/24 13:31 Height 5 ft 3 in Weight 129 lb 4 oz BMI 22.9 BP 110/58 L Blood Pressure Location Lt brachial Position Sitting Pulse 66 Intake Visit Reasons: S/P Bigelow; Dr. Mueller Intake Note: Patient follow up for Cavernous hemangioma ofliver Patient cc: Mushroom Sorter Grader Required: No Accompanied by: Self / Same As Patient Allergies shellfish derived Adverse Reaction (Mild, Verified 03/14/24 15:56) Hives Medication List - Last Reconciled 02/29/24 by Jasmina Mueller MD albuterol sulfate 90 mcg/actuation 1 puff inhalation Q4H PRN ergocalciferol (vitamin D2) 1,250 mcg PO QWEEK 1 month famotidine 20 mg PO BID 90 days metformin 500 mg PO BID semaglutide (Ozempic) 0.5 mg (0.736 mL) subcut QWEEK 12 weeks HPI HPI S/P Bigelow; Dr. Mueller: Details: GI clinic visit for this 64 YF for evaluation of elevated LFTs and to schedule a screening colonoscopy. Pt reports a hx of pre diabetes, gallstones, suspected insulin resistance, NAFL, hepatic steatosis, elevated alkaline phosphatase and large cavernous hemangiomas in the liver She has a history of breast and uterine cancer Outside labs showed elevated glucose, AP, CRP and borderline increase in Insulin and Hb A1C TODAY'S VISIT: follow up for Cavernous hemangioma of liver Denies symptoms of abdominal pain. Takes Famotidine twice a day with adequate relief of heartburn Colonoscopy results reviewed. Noted abdominal pain for a few days after the procedure and continues to note brief twinges of pain 1-2 times a week lasting for a few seconds. Had breast cancer in 2010 and was treated with surgery followed by XRT PAST VISITS: Pt was seeing a Decorative Engraver (Dr Maher) and was treated for leaky gut. Stopped sugars, dairy and gluten from 01/2022 to 05/2022 and lost 5 lbs without improvement in labs She was started on metformin Pt is 3 years over due for a colonoscopy (last colonoscopy was in 2014) Pt is a breast cancer survivor - diagnosed in 2011 (4 surgeries for the breast)Diagnosed with uterine cancer 5 yrs later. Elevated LFTs for several yrs (2011) and diagnosed with DIETZ and Has gained 25 lbs and notes burning sensation in the chest and bloating. Denies acid regurgitation or dysphagia Has been working out Patient denies symptoms of nausea, vomiting.? Denies recent change in bowel habits, constipation, black stools or rectal bleeding. Sometimes has softer stools - 1-2 times a day, Patient denies major cardiac or pulmonary problems, loud snoring or sleep apnea. Mild snoring. Barely drink - 1/2 glass of wine /week Denies smoking. Denies problems with anesthesia in the past. Denies being on chronic anticoagulation. Patient denies known family history of colon polyps, colon cancer or other GI malignancies. 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 LFTs showed normal LFTs except mild increase in alkaline phosphatase to 141, GGT was normal at 29 03/2022 AP increased to 157 (normal 35 - 104)MADY was negative Vitamin D was 40.6 Ferritin 182 IMAGING STUDIES:? 08/2022 abd us showed: Several hypoechoic liver lesions measuring up to 5.3 cm in the right hepatic lobe, incompletely characterized sonographically. Recommend further evaluation with contrast enhanced MR abdomen. ? Cholelithiasis without evidence of acute cholecystitis. ? A 1 cm echogenic avascular splenic lesion, possibly hemangioma. Attention on follow-up MR, although this may remain too small to definitively characterize. ? 2 circumscribed echogenic left renal lesions which may reflect smallangiomyolipomas. ? ENDOSCOPIC STUDIES: 09/19/22 EGD AND COLON SHOWED: Endoscopy Findings: STOMACH: Mild diffuse gastric erythema with a few linear erosions in the antrum. Biopsies were obtained. DUODENUM: Normal - biopsied to check for celiac sprue Colonoscopy Findings: Three large sized polyps removed Moderate diverticulosis seen in the sigmoid colon Moderate hemorrhoids on retroflexed exam. Plan: Repeat Colonoscopy interval based on path results - in 6 months to check? polypectomy site if polyps are adenomatous and 5 years if polyps are hyperplastic (due to a hx of colon polyps). PAST EGD/COLONOSCOPY:03/2015 Pt had an EGD and Colon in [facility]: EGD was normal A single 6 mm flat adenomatous polyp was removed from the ascending colon. Hemorrhoids were detected. Repeat colonoscopy was advised in 5 years. PAST GI HISTORY BY REVIEW OF MEDICAL RECORDS: Outside labs were reviewed [facility] Medical History Type 2 diabetes mellitus Asthma Skin cancer Uterine cancer Breast cancer Back pain Surgical History History of esophagogastroduodenoscopy (EGD) H/O colonoscopy H/O: hysterectomy History of lumpectomy of left breast Family History Mother Non-Hodgkin lymphoma Maternal Aunt Stomach cancer Maternal Uncle Bladder cancer Social History (Updated 03/14/24 @ 15:58 by CHANDA Schreiber) Household Members: Spouse Housing: House Alcohol intake: former Patient Tobacco Use Status: Never used Tobacco e-Cigarette/Vaping Use: Never Used Second Hand Smoke Exposure: No service: No Current occupational status: retired Current occupational exposures/hazards: No Cognitive needs: No Hearing needs: No Vision needs: No Review of Systems Const All systems reviewed & are unremarkable except as noted in HPI and below Physical Exam Vital Signs: Last Vital Signs Pulse 66 02/29/24 13:31 BP 110/58 L 02/29/24 13:31 BMI result Body Mass Index 22.9 Const General: healthy appearing and no acute distress Nutritional Appearance: average body habitus Orientation/consciousness: patient oriented x3 Limitations: no limitations HEENT Head: Yes normal to inspection Ears: hearing grossly normal bilaterally Eyes Sclerae: sclerae normal Pupils: Equal, round and reactive pupils present Neck Neck: Yes normal visual inspection Chest Chest palpation & inspection: normal inspection of the chest Resp Effort & Inspection: normal respiratory effort Auscultation: clear to auscultation bilaterally Cardio Palpation: normal PMI Rate: regular rate Rhythm: regular rhythm Heart sounds: S1 normal heart sound present, S2 normal heart sound present and no murmurs GI Palpation (GI): Soft to palpation, nontender and No hepatosplenomegaly present Auscultation: normal bowel sounds Rectal Exam - Female: deferred Skin General skin exam: no rashes or lesions noted Neuro General: patient oriented x3, gait normal and moves all extremities Cranial nerves: Yes Equal, round and reactive pupils present Psych Appearance: grossly normal Mental Status: mental status grossly normal Assessment & Plan Assessment & Plan (1) Vitamin D deficiency: Code(s): E55.9 - Vitamin D deficiency, unspecified Category: Medical (2) Elevated alkaline phosphatase level: Code(s): R74.8 - Abnormal levels of other serum enzymes Category: Medical (3) GERD (gastroesophageal reflux disease): Code(s): K21.9 - Gastro-esophageal reflux disease without esophagitis Category: Medical (4) Cavernous hemangioma of liver: Code(s): D18.03 - Hemangioma of intra-abdominal structures Category: Medical (5) History of colon polyps: Comment: 09/2022 colonoscopy was performed and three large sessile serrated polyps were removed. Repeat colonoscopy scheduled on 04/14/23 to check polypectomy sites in the ascending and transverse colon Code(s): Z86.010 - Personal history of colon polyps Category: Medical Plan 64 YF with pre diabetes, gallstones, suspected insulin resistance, NAFL, hepatic steatosis, elevated alkaline phosphatase and large cavernous hemangiomas in the liver referred to GI for evaluation of elevated LFTs (since 2011) and to schedule a colonoscopy (fu of a small adenomatous colon polyp). Isolated elevation of ALK P can be due to PBC, PSC, related to medications or from non-hepatic source. Pt reports burning sensation in the chest and bloating - will check for celiac sprue Pt was advised repeat labs. Start famotidine 20 mg at bedtime for upper GI symptoms. 09/2022 upper endoscopy and colonoscopy were performed and results as noted above Three large sessile serrated polyps were removed during colonoscopy 08/2023 Repeat colonoscopy was performed to check polypectomy sites in the ascending and transverse colon - findings as noted above 10/05/23 Colonoscopy results reviewed. Noted abdominal pain for a few days after the procedure and continues to note brief twinges of pain 1-2 times a week lasting for a few seconds. FU in 5 months with repeat labs 02/29/24 Takes Famotidine twice a day with adequate relief of heartburn FU in 8 months - FU of GERD, colon polyps and elevated LFTs FROM UPTODATE: In patients with intrahepatic cholestasis, antimitochondrial antibodies (AMA), antinuclear antibodies, and antismooth muscle antibodies should be checked. If present, AMA are highly suggestive of PBC, and a liver biopsy may be considered to confirm the diagnosis. If AMA are absent, additional testing includes: ?MRCP to look for evidence of primary sclerosing cholangitis ?Testing for hepatitis A, B, C, and E ?Testing for Nader-Wren virus and cytomegalovirus If the above tests are negative and the alkaline phosphatase is persistently more than two times the upper limit of normal for more than six months, we obtain a liver biopsy. A liver biopsy may reveal evidence of an infiltrative disease (eg, sarcoidosis, malignancy) or other causes of cholestasis, such as vanishing bile duct syndrome and idiopathic adulthood bile ductopenia. If the alkaline phosphatase is less than two times the upper limit of normal, all of the other liver biochemical tests are normal, and the patient is asymptomatic, we suggest observation alone, since further testing is unlikely to influence management Coding Level of Care Code Est Pt Level 4 (49197) Diagnoses Vitamin D deficiency E55.9 Elevated alkaline phosphatase level R74.8 GERD (gastroesophageal reflux disease) K21.9 Cavernous hemangioma of liver D18.03 History of colon polyps Z86.010 Time Spent (min) 21
[2024-02-29 13:31] VITALS: BP 110/58; PULSE 66; BMI 22.9
== END 2024-02-29 14:20 | disposition home or self-care (01) ==
PROVIDERS: PCP Family Medicine; Visit Provider Internal Medicine Gastroenterology
DX: E55.9 Vitamin D deficiency, unspecified (principal); R74.8 Abnormal levels of other serum enzymes; K21.9 Gastro-esophageal reflux disease without esophagitis; D18.03 Hemangioma of intra-abdominal structures; Z86.010 Personal history of colon polyps
CPT/HCPCS: 99214

== ENCOUNTER → 2024-02-29 13:28 | Outpatient (BNVA) | payer OTHER, SELFPAY | PROVIDERS: PCP Family Medicine; Visit Provider Internal Medicine Gastroenterology | DX: E55.9 Vitamin D deficiency, unspecified (principal); R74.8 Abnormal levels of other serum enzymes; K21.9 Gastro-esophageal reflux disease without esophagitis; D18.03 Hemangioma of intra-abdominal structures; Z86.010 Personal history of colon polyps | CPT/HCPCS: 99212 ==

== ENCOUNTER 2024-03-14 15:42 | Outpatient (AMB) | payer OTHER, SELFPAY ==
--- NOTE | 2024-03-14 15:54 | MHC.PC.OV ---
Vital Signs 03/14/24 16:01 Height 5 ft 3 in Weight 128 lb 4 oz BMI 22.7 BP 120/60 Blood Pressure Location Rt brachial Position Sitting Respiration 12 Pulse 82 Pulse Source Pulse Oximeter Pulse Oximetry (%) 99 Oxygen Delivery Method Room Air Intake Visit Reasons: annual with follow up Intake Note: CPE Is last menstrual period known: No Post menopausal: Yes Patient : No Allergies shellfish derived Adverse Reaction (Mild, Verified 03/14/24 15:56) Hives Medication List - Last Reconciled 03/14/24 by Edgar Dotson MD albuterol sulfate 90 mcg/actuation 1 puff inhalation Q4H PRN ergocalciferol (vitamin D2) 1,250 mcg PO QWEEK 1 month famotidine 20 mg PO BID 90 days metformin 500 mg PO BID semaglutide (Ozempic) 0.5 mg (0.736 mL) subcut QWEEK 12 weeks sulfamethoxazole-trimethoprim 800-160 mg 1 tab PO BID Tobacco use date assessed: 03/14/24 Dental Screening Dental Screen Date: 03/14/24 Did you have a dental visit in the last 12 months?: Yes Did you have a dental problem in the last 6 months where you did not have access to dental care?: No Was dental information given to patient?: Patient has dentist HPI annual with follow up HPI Details 64 y/o female presents for a CPE with f/u labs and health maintenance. No recent labs to review. Last A1c 12/27/23 5.2%. She is on metformin 500mg b.i.d. [facility] Medical History (Reviewed 12/27/23 @ 10:50 by Christina Vazquez [facility]) Type 2 diabetes mellitus Asthma Skin cancer Uterine cancer Breast cancer Back pain Surgical History History of esophagogastroduodenoscopy (EGD) H/O colonoscopy H/O: hysterectomy History of lumpectomy of left breast Family History Mother Non-Hodgkin lymphoma Maternal Aunt Stomach cancer Maternal Uncle Bladder cancer Social History (Updated 03/14/24 @ 15:58 by Miladis Suarez MA) Household Members: Spouse Housing: House Alcohol intake: former Patient Tobacco Use Status: Never used Tobacco e-Cigarette/Vaping Use: Never Used Second Hand Smoke Exposure: No service: No Current occupational status: retired Current occupational exposures/hazards: No Cognitive needs: No Hearing needs: No Vision needs: No Questionnaire PHQ-9 Over the last 2 weeks, how often have you been bothered by any of the following problems? 1. Little interest or pleasure in doing things: not at all 2. Feeling down, depressed, or hopeless: not at all 3. Trouble falling or staying asleep, or sleeping too much: not at all 4. Feeling tired or having little energy: not at all 5. Poor appetite or overeating: not at all 6. Feeling bad about yourself - or that you are a failure or have let yourself or your family down: not at all 7. Trouble concentrating on things, such as reading the newspaper or watching television: not at all 8. Moving or speaking so slowly that other people could have noticed. Or the opposite - being so fidgety or restless that you have been moving around a lot more than usual: not at all 9. Thoughts that you would be better off or of hurting yourself in some way: not at all Total score: 0 Depression Screening Interpretation: Negative Depression Screening Done: Yes [id number] - PHQ-9 Billing: Yes Source: Developed by Drs. Silverio Dooley, Yani Hull, Adonis Umanzor and colleagues, with an educational emma from [email or web address]. Thrive Questionnaire Date Thrive assessed: 03/14/24 I am a: Patient What is your living situation today?: I have a steady place to live Within the past 12 months, did the food you bought not last and you didn't have the money to get more?: Never true Within the past 12 months, did you worry whether your food would run out before you got money to buy more?: Never true Do you have trouble paying for medicines?: No Do you have trouble getting transportation to medical appointments?: No Do you have trouble paying your heating and electricity bill?: No Do you have trouble taking care of your child, family member or friend?: No Do you have trouble with day-to-day activities such as bathing, preparing meals, shopping, managing finances, etc.?: No Are you currently unemployed and looking for a job?: No Are you interested in more education?: No Please select the resources that you would like help with: None Currently or been in a relationship where the following occur: No concerns reported THRIVE Score: 0 AUDIT C Alcohol Use Questionnaire (AUDIT-C) 1. How often do you have a drink containing alcohol?: Never 3. How often do you have six or more drinks on one occasion?: Never Total Score: 0 JUDY-7 AMB Questionnaire JUDY-7 Date JUDY - 7 assessed: 03/14/24 Feeling nervous, anxious, or on edge: 0 = Not at all Not being able to stop or control worryin = Not at all Worrying too much about different things: 0 = Not at all Trouble relaxin = Not at all Being so restless that it is hard to sit still: 0 = Not at all Becoming easily annoyed or irritable: 0 = Not at all Feeling afraid as if something awful might happen: 0 = Not at all Total JUDY-7 score (0-4 normal; 5-9 mild; 10-14 moderate; 15-21 severe): 0 Source: Developed by Drs. Silverio Dooley, Yani Hull, Adonis Umanzor and colleagues, with an educational emma from [email or web address]. JUDY-7 Assessment Billing JUDY-7 Assessment Tool: JUDY-7 Assessment 33451 Review of Systems Const Denies chills, Denies fatigue, Denies fever(s), Denies headache(s) and Denies weakness Eyes Denies change in vision ENT Denies dizziness, Denies headache(s), Denies hearing loss, Denies nasal congestion, Denies sinus pain, Denies sinus pressure and Denies sore throat Card Denies chest pain, Denies lightheadedness, Denies dyspnea and Denies other (palpitations) Resp Denies cough, Denies dyspnea and Denies wheezing GI Denies abdominal pain, Denies melena, Denies hematochezia, Denies change in bowel habits, Denies dyspepsia and Denies nausea Denies hematuria and Denies dysuria Musc Denies abnormal gait, Denies myalgias, Denies arthralgias, Denies numbness and Denies tingling Skin/Breast Denies rash, Denies unusual bruising and Denies wounds Neuro Denies abnormal gait, Denies dizziness, Denies headache(s), Denies memory loss, Denies numbness, Denies Sensory deficit (Neuro), Denies tingling and Denies weakness Psych Denies anxiety, Denies depression and Denies memory loss Endo Denies cold intolerance, Denies fatigue, Denies heat intolerance, Denies polydipsia and Denies polyuria Angel/Lymph Denies easy bleeding and Denies easy bruising Aller/Immun Denies wheezing Physical exam (Primary Care) Vital Signs: Last Vital Signs Pulse 82 03/14/24 16:01 Resp 12 03/14/24 16:01 BP 120/60 03/14/24 16:01 Pulse Ox 99 03/14/24 16:01 Oxygen Delivery Method Room Air 03/14/24 16:01 BMI result Body Mass Index 22.7 Tobacco/Smoking Status: Tobacco use Status Tobacco use date assessed 03/14/24 03/14/24 16:01 Patient Tobacco Use Status Never used Tobacco 03/14/24 16:01 e-Cigarette/Vaping Use Never Used 03/14/24 16:01 PHQ-9: PHQ-9 Score PHQ-9: Total score 0 03/14/24 16:29 Depression Screening Interpretation: Negative Thrive Assessment: Date of Thrive Assessment Date Thrive assessed 03/14/24 03/14/24 16:01 Currently or been in a relationship where the following occur: No concerns reported Const General: no acute distress, well developed, alert and awake Nutritional Appearance: well nourished Orientation/consciousness: patient oriented x3 HENMT Head: Yes normocephalic and Yes atraumatic Ears: hearing grossly normal bilaterally and TM's normal bilaterally General nose exam: Normal external nose present and Normal nares present Mouth: Normal oral and palatal mucosa present and moist mucous membranes Teeth and gingiva: dentition normal Throat: Yes posterior oropharynx normal Eyes General: appearance normal, both eyes and all related structures Pupils: Equal, round and reactive pupils present and Pupil accommodation reflex normal EOM: EOMs intact bilaterally Neck Neck: Yes normal visual inspection, Yes no lymphadenopathy and Yes trachea midline Thyroid: Thyroid normal Carotids: no bruits Lymphatic: no lymphadenopathy noted Chest Chest palpation & inspection: normal inspection of the chest Resp Effort & Inspection: normal respiratory effort Auscultation: clear to auscultation bilaterally Cardio Rate: regular rate Rhythm: regular rhythm Heart sounds: S1 normal heart sound present, S2 normal heart sound present, no gallops, no murmurs and no rubs Bruits: no abdominal aortic bruits and no carotid bruits GI Palpation (GI): No Abdominal aortic bruit present, Soft to palpation, nontender, No hepatosplenomegaly present and No Rebound tenderness present Auscultation: normal bowel sounds General: Yes no CVA tenderness Back/Spine/Pelvis Back: no CVA tenderness Cervical Spine: cervical ROM normal and No Cervical spine tenderness Thoracic/Lumbar Spine: thoraco-lumbar ROM normal, No pain with thoraco-lumbar ROM, No thoracic spinal tenderness and No lumbar spinal tenderness Skin Lesions: no lesions Rashes: no rashes Trauma: no lacerations or abrasions Wounds: no wounds Nails: normal Neuro General: patient oriented x3 Cranial nerves: Yes Equal, round and reactive pupils present Cognition (Neuro): normal cognition Gait exam (Neuro): Normal gait present Motor exam (neuro): 5/5 motor strength present throughout Sensory Exam: No Sensory deficit (Neuro) Deep tendon reflexes (DTR's): Right patellar reflex intensity grade: 2+ and Left patellar reflex intensity grade: 2+ Extrem General: Yes normal to inspection and No edema Psych Appearance: grossly normal Affect: normal affect Attitude: cooperative Thought process: Normal thought process present Assessment and Plan Assessment & Plan (1) Adult general medical exam: Code(s): Z00.00 - Encounter for general adult medical examination without abnormal findings Plan: 64-year-old?female?presents?for?complete?physical?exam Exam?within?normal?limits Encouraged?healthy?diet?with?active?lifestyle?and?plenty?of?exercise (2) Type 2 diabetes mellitus: Code(s): E11.9 - Type 2 diabetes mellitus without complications Plan: A1c?2?months?ago?showed?good?control.??Goal?is?less?than?7.0% Continue?current?medication Encouraged?diabetic?diet Encouraged?exercise (3) Osteoporosis: Code(s): M81.0 - Age-related osteoporosis without current pathological fracture Plan: Patient?did?not?tolerate?alendronate Had?made?a?referral?to?Rheumatology.??Patient?has?not?gotten?hold?of?them?yet?but?says?she?will?do?so She?is?getting?good?sources?of?calcium?and?vitamin-D She?is?working?on?mild?weight-bearing?exercise (4) Cavernous hemangioma of liver: Code(s): D18.03 - Hemangioma of intra-abdominal structures Plan: Followed?by?Gastroenterology Stable (5) UTI (urinary tract infection): Code(s): N39.0 - Urinary tract infection, site not specified Qualifiers: Hematuria presence: without hematuria Urinary tract infection type: acute cystitis Qualified Code(s): N30.00 - Acute cystitis without hematuria Plan: Frequent?UTIs?although?this?has?improved?recently Currently?asymptomatic (6) Breast cancer screening by mammogram: Code(s): Z12.31 - Encounter for screening mammogram for malignant neoplasm of breast Plan: Last?mammogram?showed?no?evidence?of?malignancy?and?recommended?annual?screening She?is?up-to-date Continue?annual?screen (7) Screening for cervical cancer: Code(s): Z12.4 - Encounter for screening for malignant neoplasm of cervix Plan: Followed?by?Eliza?at?C?cake maker Up-to-date (8) Screening for colon cancer: Code(s): Z12.11 - Encounter for screening for malignant neoplasm of colon Plan: Followed?by? Up-to-date Medications: Changed From metformin 500 mg PO BID 180 tabs 1RF E88.81 - Metabolic syndrome and other insulin resistance To metformin 500 mg PO BID 90 days 180 tabs 3RF E88.81 - Metabolic syndrome and other insulin resistance Refilled semaglutide (Ozempic) 0.5 mg (0.736 mL) subcut QWEEK 12 weeks 9 mL 4RF ergocalciferol (vitamin D2) 1,250 mcg PO QWEEK 1 month 5 caps 4RF Coding Level of Care Code Est Pt Level 3 (20409) Est Pt Prev Care 40-64y(56918) Diagnoses Adult general medical exam Z00.00 Type 2 diabetes mellitus E11.9 Osteoporosis M81.0 Cavernous hemangioma of liver D18.03 Acute cystitis without hematuria N30.00 Hematuria presence: without hematuria Urinary tract infection type: acute cystitis Breast cancer screening by mammogram Z12.31 Screening for cervical cancer Z12.4 Screening for colon cancer Z12.11 Additional Codes JUDY-7 Assessment Billing - JUDY-7 Assessment Tool: JUDY-7 Assessment 07705 ([id number])
[2024-03-14 16:01] VITALS: BP 120/60; PULSE 82; RESP 12; O2SAT 99; BMI 22.7
== END 2024-03-14 16:47 | disposition home or self-care (01) ==
PROVIDERS: PCP Family Medicine; Visit Provider Family Medicine
DX: Z00.00 Encounter for general adult medical examination without abnormal findings (principal); E11.9 Type 2 diabetes mellitus without complications; M81.0 Age-related osteoporosis without current pathological fracture; D18.03 Hemangioma of intra-abdominal structures; N30.00 Acute cystitis without hematuria; Z12.31 Encounter for screening mammogram for malignant neoplasm of breast; Z12.11 Encounter for screening for malignant neoplasm of colon

== ENCOUNTER → 2024-03-14 15:42 | Outpatient (BNVA) | payer OTHER, SELFPAY | PROVIDERS: PCP Family Medicine; Visit Provider Family Medicine | DX: Z00.00 Encounter for general adult medical examination without abnormal findings (principal); E11.9 Type 2 diabetes mellitus without complications; M81.0 Age-related osteoporosis without current pathological fracture; D18.03 Hemangioma of intra-abdominal structures; N30.00 Acute cystitis without hematuria; Z79.85 Long-term (current) use of injectable non-insulin antidiabetic drugs; Z79.84 Long term (current) use of oral hypoglycemic drugs | CPT/HCPCS: 96127; 99396 ==

== ENCOUNTER 2024-05-29 10:50 | Outpatient (AMB) | payer OTHER, SELFPAY ==
--- NOTE | 2024-05-29 10:51 | A.OFFVIS_ITS ---
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 She is doing well with no concerns. Currently not sexually active. Denies any vaginal dryness or irritation. Attempting to eat a healthy diet with calcium and vitamin D and stays active with exercise. History of uterine and breast cancer. Last mammogram; 2023. Colonoscopy is UTD. [facility] Medical History Type 2 diabetes mellitus Asthma Skin cancer Uterine cancer Breast cancer Back pain Surgical History History of esophagogastroduodenoscopy (EGD) H/O colonoscopy H/O: hysterectomy History of lumpectomy of left breast Family History Mother Non-Hodgkin lymphoma Maternal Aunt Stomach cancer Maternal Uncle Bladder cancer Social History Household Members: Spouse Housing: House Alcohol intake: former Patient Tobacco Use Status: Never used Tobacco e-Cigarette/Vaping Use: Never Used Second Hand Smoke Exposure: No service: No Current occupational status: retired Current occupational exposures/hazards: No Cognitive needs: No Hearing needs: No Vision needs: No Female Reproductive History Menstrual Menopause type: surgical Total pregnancies: 1 Full term: 1 Number of Living Children: 1 Date of Mammogram: 12/05/23 (Birad 2) Review of Systems Const All systems reviewed & are unremarkable except as noted in HPI and below Reports as per HPI Eyes Reports no additional complaints ENT Reports no additional complaints Card Reports no additional complaints Resp Reports no additional complaints GI Reports as per HPI and Reports no additional complaints Reports as per HPI Musc Reports no additional complaints Skin/Breast Reports as per HPI Neuro Reports no additional complaints Psych Reports no additional complaints Endo Reports no additional complaints Angel/Lymph Reports no additional complaints Aller/Immun Reports no additional complaints Physical Exam Vital Signs: Last Vital Signs BP 110/70 05/29/24 10:52 BMI result Body Mass Index 22.8 Const General: cooperative, healthy appearing, no acute distress, well developed and alert Orientation/consciousness: patient oriented x3 HEENT Head: Yes normal to inspection Eyes General: appearance normal, both eyes and all related structures Neck Neck: Yes normal visual inspection Thyroid: Thyroid normal Chest Chest palpation & inspection: normal inspection of the chest and other (no puckering, dimpling, peau de orange, retraction, discharge, masses) Breast/axilla inspection: normal inspection of the breasts (Reconstructive surgery bilaterally) Breast/axilla palpation: normal palpation of the breasts Resp Effort & Inspection: normal respiratory effort GI Inspection: Yes normal to inspection Palpation (GI): Soft to palpation Rectal Exam - Female: deferred General: Yes bladder normal to palpation External Female Exam: normal external appearance and normal appearance of the urethra Speculum Exam - Vagina: normal appearance of the vagina, normal palpation, normal vaginal discharge and vagina atrophic (Moderate to severe) Speculum Exam - Cervix: Cervix absent (Vaginal cuff no lesions or nodules) Bimanual exam- vagina & uterus: normal bimanual exam, normal palpation, bladder normal to palpation and uterus absent Bimanual Exam- Adnexa, other: no masses Skin General skin exam: no rashes or lesions noted Rashes: no rashes Neuro General: patient oriented x3 Cognition (Neuro): normal cognition Extrem General: Yes normal to inspection Psych Attitude: cooperative Thought process: Normal thought process present Assessment & Plan Assessment & Plan (1) Encounter for well woman exam with routine gynecological exam: Code(s): Z01.419 - Encounter for gynecological examination (general) (routine) without abnormal findings Category: Medical Plan Discussed: Current recommendations for pap smears per ASCCP guidelines. Breast awareness, periodic self breast exams and yearly mammogram. Maintain a healthy lifestyle, well balanced diet including Calcium 1,200 mg and Vitamin D 600 IU daily, and routine exercise. Patient verbalizes understanding and agrees to the plan of care. She was given opportunity to ask questions and all questions were answered to the best of my ability. RTO in 1 year for annual building associate exam. This note is constructed using voice recognition software. While every effort has been made to ensure accuracy, box shook patcher errors may have been included. Coding Level of Care Code Est Pt Prev Care 40-64y(51645) Diagnoses Encounter for well woman exam with routine gynecological exam Z01.419
[2024-05-29 10:52] VITALS: BP 110/70; BMI 22.8
--- OUTSIDE RECORDS SUMMARY | 2024-05-30 01:09 | XMS_ITS | Continuity of Care Document ---
Author Organization [facility] Address [address] [place] [address] Phone Care Team Providers Care Movement Assembler Name Role Phone Deedee Betancourt MD Unavailable [...] Diagnoses Date Provider Providers Copied on Encounter [facility], [address], [place], [place], [id number], tel:[phone] [facility] No Information Serafin Mark. [address], [address], [place], [id number], [place]. tel:[phone] [facility], [address], [place], [id number], tel:[phone] [facility] No Information Serafin Mark. [address], [address], [place], [place], [id number], [place]. tel:[phone] [facility], [address], [place], [place], [id number], tel:[phone] [facility] No Information Serafin Mark. [address], [address], [place], [id number], . tel:[phone] Family History Family Member Type Diagnosis Age At Onset Father Problem (finding) GOOD Mother Problem (finding) GOOD Payers Payer name Insurance type Covered alliance party ID Authoriza tion(s) No Information Social [...]
== END 2024-05-29 13:13 | disposition home or self-care (01) ==
PROVIDERS: PCP Hospitalist; Visit Provider Advanced Practice Midwife
DX: Z01.419 Encounter for gynecological examination (general) (routine) without abnormal findings (principal)
CPT/HCPCS: 99396

== ENCOUNTER → 2024-05-29 10:50 | Outpatient (BNVA) | payer OTHER, SELFPAY | PROVIDERS: PCP Hospitalist; Visit Provider Advanced Practice Midwife | DX: Z01.419 Encounter for gynecological examination (general) (routine) without abnormal findings (principal) | CPT/HCPCS: 99396 ==

== ENCOUNTER 2024-06-17 15:29 | Outpatient (AMB) | payer OTHER, SELFPAY ==
--- NOTE | 2024-06-17 16:01 | A.OFFPC_ITS ---
Vital Signs 06/17/24 16:02 Height 5 ft 3 in Weight 132 lb 6 oz BMI 23.4 BP 110/60 Blood Pressure Location Rt brachial Position Sitting Respiration 16 Pulse 75 Pulse Source Palpation Intake Visit Reasons: diabetes Intake Note: dm f/u and refill on inhaler Allergies shellfish derived Adverse Reaction (Mild, Verified 06/17/24 16:01) Hives Tobacco use date assessed: 03/14/24 Dental Screening Dental Screen Date: 03/14/24 HPI diabetes HPI Details 64 y/o female presents to f/u diabetes. Last A1c in December showed good control at 5.2%. A1c today 06/17/24 4.8%. She is on metformin 500mg b.i.d. [facility] Medical History Type 2 diabetes mellitus Asthma Skin cancer Uterine cancer Breast cancer Back pain Surgical History History of esophagogastroduodenoscopy (EGD) H/O colonoscopy H/O: hysterectomy History of lumpectomy of left breast Family History Mother Non-Hodgkin lymphoma Maternal Aunt Stomach cancer Maternal Uncle Bladder cancer Social History Household Members: Spouse Housing: House Alcohol intake: former Patient Tobacco Use Status: Never used Tobacco e-Cigarette/Vaping Use: Never Used Second Hand Smoke Exposure: No service: No Current occupational status: retired Current occupational exposures/hazards: No Cognitive needs: No Hearing needs: No Vision needs: No Questionnaire PHQ-9 Over the last 2 weeks, how often have you been bothered by any of the following problems? 1. Little interest or pleasure in doing things: not at all 2. Feeling down, depressed, or hopeless: not at all 3. Trouble falling or staying asleep, or sleeping too much: not at all 4. Feeling tired or having little energy: not at all 5. Poor appetite or overeating: not at all 6. Feeling bad about yourself - or that you are a failure or have let yourself or your family down: not at all 7. Trouble concentrating on things, such as reading the newspaper or watching television: not at all 8. Moving or speaking so slowly that other people could have noticed. Or the opposite - being so fidgety or restless that you have been moving around a lot more than usual: not at all 9. Thoughts that you would be better off or of hurting yourself in some way: not at all Total score: 0 Source: Developed by Drs. Silverio Dooley, Yani Hull, Adonis Umanzor and colleagues, with an educational emma from [employer] Thrive Questionnaire Date Thrive assessed: 06/10/24 I am a: Patient What is your living situation today?: I have a steady place to live Within the past 12 months, did the food you bought not last and you didn't have the money to get more?: Never true Within the past 12 months, did you worry whether your food would run out before you got money to buy more?: Never true Do you have trouble paying for medicines?: No Do you have trouble getting transportation to medical appointments?: No Do you have trouble paying your heating and electricity bill?: No Do you have trouble taking care of your child, family member or friend?: No Do you have trouble with day-to-day activities such as bathing, preparing meals, shopping, managing finances, etc.?: No Are you currently unemployed and looking for a job?: No Are you interested in more education?: No Please select the resources that you would like help with: None Currently or been in a relationship where the following occur: No concerns reported THRIVE Score: 0 AUDIT C Alcohol Use Questionnaire (AUDIT-C) 1. How often do you have a drink containing alcohol?: Monthly or less 2. How many drinks containing alcohol do you have on a typical day when you are drinking?: 1 or 2 3. How often do you have six or more drinks on one occasion?: Never Total Score: 1 JUDY-7 AMB Questionnaire JUDY-7 Date JUDY - 7 assessed: 03/14/24 Feeling nervous, anxious, or on edge: 0 = Not at all Not being able to stop or control worryin = Not at all Worrying too much about different things: 0 = Not at all Trouble relaxin = Not at all Being so restless that it is hard to sit still: 0 = Not at all Becoming easily annoyed or irritable: 0 = Not at all Feeling afraid as if something awful might happen: 0 = Not at all Total JUDY-7 score (0-4 normal; 5-9 mild; 10-14 moderate; 15-21 severe): 0 Source: Developed by Drs. Silverio Dooley, Yani Hull, Adonis Umanzor and colleagues, with an educational emma from [employer] Physical exam (Primary Care) Vital Signs: Last Vital Signs Pulse 75 06/17/24 16:02 Resp 16 06/17/24 16:02 BP 110/60 06/17/24 16:02 BMI result Body Mass Index 23.4 Tobacco/Smoking Status: Tobacco use Status Tobacco use date assessed 03/14/24 06/17/24 16:05 Patient Tobacco Use Status Never used Tobacco 06/17/24 16:05 e-Cigarette/Vaping Use Never Used 06/17/24 16:05 PHQ-9: PHQ-9 Score PHQ-9: Total score 0 06/17/24 16:16 Thrive Assessment: Date of Thrive Assessment Date Thrive assessed 06/10/24 06/17/24 16:05 Currently or been in a relationship where the following occur: No concerns reported Coding Level of Care Code Est Pt Level 3 (71864) Diagnoses Type 2 diabetes mellitus E11.9 Assessment & Plan Assessment & Plan (1) Type 2 diabetes mellitus: Code(s): E11.9 - Type 2 diabetes mellitus without complications Category: Medical Plan: A1c?4.8%. Goal?is?less?than?7.0% She?is?taking?metformin?500?mg?b.i.d.?and?Ozempic Will?have?her?decrease?metformin?to?500?mg? daily?and?continue?Ozempic?as?prescribed. Reminded?her?again?to?try?to?make?an?appointment?with?an?eye?doctor?as?she?shoul d?have?a?diabetic?retinal?exam?least?once?a?year.??She?says?she?will?try?to?g et?this?done?soon Medications: Changed From metformin 500 mg PO BID 90 days 180 tabs 3RF E88.81 - Metabolic syndrome and other insulin resistance To metformin 500 mg PO DAILY 90 tabs 3RF 90 days E88.81 - Metabolic syndrome and other insulin resistance Refilled albuterol sulfate 90 mcg/actuation 1 puff inhalation Q4H PRN 8.5 ea 6RF for wheezing J45.909 - Unspecified asthma, uncomplicated albuterol sulfate 90 mcg/actuation 1 puff inhalation Q4H PRN 8.5 ea 6RF for wheezing J45.909 - Unspecified asthma, uncomplicated
[2024-06-17 16:02] VITALS: BP 110/60; PULSE 75; RESP 16; BMI 23.4
== END 2024-06-17 16:20 | disposition home or self-care (01) ==
PROVIDERS: PCP Family Medicine; Visit Provider Family Medicine
DX: E11.9 Type 2 diabetes mellitus without complications (principal)

== ENCOUNTER → 2024-06-17 15:29 | Outpatient (BNVA) | payer OTHER, SELFPAY | PROVIDERS: PCP Family Medicine; Visit Provider Family Medicine | DX: E11.9 Type 2 diabetes mellitus without complications (principal) | CPT/HCPCS: 83036; 96127; 99212 ==

== ENCOUNTER 2024-09-16 11:07 | Outpatient (AMB) | payer OTHER, SELFPAY ==
--- NOTE | 2024-09-16 11:32 | MHC.PC.OV ---
Vital Signs 09/16/24 11:35 Height 5 ft 3 in Weight 135 lb 8 oz BMI 24.0 BP 110/62 Blood Pressure Location Rt brachial Position Sitting Respiration 14 Pulse 80 Pulse Source Pulse Oximeter Temp 98.4 F Temp Source Oral Pulse Oximetry (%) 98 Oxygen Delivery Method Room Air Intake Visit Reasons: f/u diabetes Intake Note: patient is schedule for dm follow up Visualizer Required: No Allergies shellfish derived Adverse Reaction (Mild, Verified 09/16/24 11:33) Hives Medication List - Last Reconciled 09/16/24 by Edgar Dotson MD albuterol sulfate 90 mcg/actuation 1 puff inhalation Q4H PRN ergocalciferol (vitamin D2) 1,250 mcg PO QWEEK 1 month famotidine 20 mg PO BID 90 days metformin 500 mg PO DAILY 90 days nitrofurantoin macrocrystal 100 mg PO BID semaglutide 1 mg (0.75 mL) subcut QWEEK 12 weeks Tobacco use date assessed: 03/14/24 Dental Screening Dental Screen Date: 03/14/24 HPI f/u diabetes HPI Details 64 y/o female presents to f/u diabetes. A1c today 09/16/24 5.1%. Had decreased metformin a bit last office visit. She is on ozempic 0.5mg, metformin 500mg daily. [facility] Medical History Type 2 diabetes mellitus Asthma Skin cancer Uterine cancer Breast cancer Back pain Surgical History History of esophagogastroduodenoscopy (EGD) H/O colonoscopy H/O: hysterectomy History of lumpectomy of left breast Family History Mother Non-Hodgkin lymphoma Maternal Aunt Stomach cancer Maternal Uncle Bladder cancer Social History Household Members: Spouse Housing: House Alcohol intake: former Patient Tobacco Use Status: Never used Tobacco e-Cigarette/Vaping Use: Never Used Second Hand Smoke Exposure: No service: No Current occupational status: retired Current occupational exposures/hazards: No Cognitive needs: No Hearing needs: No Vision needs: No Questionnaire PHQ-9 Over the last 2 weeks, how often have you been bothered by any of the following problems? 1. Little interest or pleasure in doing things: not at all 2. Feeling down, depressed, or hopeless: not at all 3. Trouble falling or staying asleep, or sleeping too much: not at all 4. Feeling tired or having little energy: not at all 5. Poor appetite or overeating: not at all 6. Feeling bad about yourself - or that you are a failure or have let yourself or your family down: not at all 7. Trouble concentrating on things, such as reading the newspaper or watching television: not at all 8. Moving or speaking so slowly that other people could have noticed. Or the opposite - being so fidgety or restless that you have been moving around a lot more than usual: not at all 9. Thoughts that you would be better off or of hurting yourself in some way: not at all Total score: 0 Depression Screening Interpretation: Negative Depression Screening Done: Yes 72315 - PHQ-9 Billing: Yes Source: Developed by Drs. Silverio Dooley, Yani Hull, Adonis Umanzor and colleagues, with an educational mema from [employer]. Thrive Questionnaire Date Thrive assessed: 09/16/24 I am a: Patient What is your living situation today?: I have a steady place to live Within the past 12 months, did the food you bought not last and you didn't have the money to get more?: Never true Within the past 12 months, did you worry whether your food would run out before you got money to buy more?: Never true Do you have trouble paying for medicines?: No Do you have trouble getting transportation to medical appointments?: No Do you have trouble paying your heating and electricity bill?: No Do you have trouble taking care of your child, family member or friend?: No Do you have trouble with day-to-day activities such as bathing, preparing meals, shopping, managing finances, etc.?: No Are you currently unemployed and looking for a job?: No Are you interested in more education?: No Please select the resources that you would like help with: None Currently or been in a relationship where the following occur: No concerns reported THRIVE Score: 0 AUDIT C Alcohol Use Questionnaire (AUDIT-C) 1. How often do you have a drink containing alcohol?: Never 3. How often do you have six or more drinks on one occasion?: Never Total Score: 0 JUDY-7 AMB Questionnaire JUDY-7 Date JUDY - 7 assessed: 09/16/24 Feeling nervous, anxious, or on edge: 0 = Not at all Not being able to stop or control worryin = Not at all Worrying too much about different things: 0 = Not at all Trouble relaxin = Not at all Being so restless that it is hard to sit still: 0 = Not at all Becoming easily annoyed or irritable: 0 = Not at all Feeling afraid as if something awful might happen: 0 = Not at all Total JUDY-7 score (0-4 normal; 5-9 mild; 10-14 moderate; 15-21 severe): 0 Source: Developed by Drs. Silverio Dooley, Yani Hull, Adonis Umanzor and colleagues, with an educational emma from [employer]. JUDY-7 Assessment Billing JUDY-7 Assessment Tool: JUDY-7 Assessment 43027 Review of Systems Const Denies chills, Denies fatigue, Denies fever(s), Denies headache(s) and Denies weakness ENT Denies dizziness and Denies headache(s) Card Denies dyspnea Resp Denies cough, Denies dyspnea, Denies wheezing and Denies other (shortness of breath) Musc Denies numbness and Denies tingling Neuro Denies dizziness, Denies headache(s), Denies numbness, Denies tingling and Denies weakness Psych Denies anxiety and Denies depression Endo Denies fatigue Aller/Immun Denies wheezing Physical exam (Primary Care) Vital Signs: Last Vital Signs Temp 98.4 F 09/16/24 11:35 Pulse 80 09/16/24 11:35 Resp 14 09/16/24 11:35 BP 110/62 09/16/24 11:35 Pulse Ox 98 09/16/24 11:35 Oxygen Delivery Method Room Air 09/16/24 11:35 BMI result Body Mass Index 24.0 Tobacco/Smoking Status: Tobacco use Status Tobacco use date assessed 03/14/24 09/16/24 11:39 Patient Tobacco Use Status Never used Tobacco 09/16/24 11:39 e-Cigarette/Vaping Use Never Used 09/16/24 11:39 PHQ-9: PHQ-9 Score PHQ-9: Total score 0 09/16/24 12:08 Depression Screening Interpretation: Negative Thrive Assessment: Date of Thrive Assessment Date Thrive assessed 09/16/24 09/16/24 11:39 Currently or been in a relationship where the following occur: No concerns reported Const General: well developed; No acute distress Nutritional Appearance: well nourished Orientation/consciousness: patient oriented x3 HENMT Head: Yes normocephalic and Yes atraumatic Eyes General: appearance normal, both eyes and all related structures Pupils: Equal, round and reactive pupils present EOM: EOMs intact bilaterally Resp Effort & Inspection: normal respiratory effort Neuro General: patient oriented x3 and gait normal Cranial nerves: Yes Equal, round and reactive pupils present Psych Affect: normal affect Coding Level of Care Code Est Pt Level 3 (37819) Diagnoses Type 2 diabetes mellitus E11.9 Acute cystitis without hematuria N30.00 Hematuria presence: without hematuria Urinary tract infection type: acute cystitis Additional Codes JUDY-7 Assessment Billing - JUDY-7 Assessment Tool: JUDY-7 Assessment 41876 ([id number]) PHQ-9 - 19475 - PHQ-9 Billing: Yes ([id number]) Assessment & Plan Assessment & Plan (1) Type 2 diabetes mellitus: Code(s): E11.9 - Type 2 diabetes mellitus without complications Category: Medical Plan: A1c?5.1%.??Good?control.??Goal?is?less?than?7% Had?decreased?metformin?at?her?prior?visit.??She?is?also?on?Ozempic. Had?been?taking?Ozempic?also?for?weight?loss?and?this?seems?to?have?plateaued. Will?increase?Ozempic?from?0.5?mg?weekly?to?1.0?mg?weekly. Continue?metformin?as?prescribed Continue?diabetic?diet Recent?eye?exam?negative?for?diabetic?retinopathy.??Up-to-date (2) UTI (urinary tract infection): Code(s): N39.0 - Urinary tract infection, site not specified Category: Medical Qualifiers: Hematuria presence: without hematuria Urinary tract infection type: acute cystitis Qualified Code(s): N30.00 - Acute cystitis without hematuria Plan: Frequent?urinary?tract?infections. She?will?try?cranberry?capsules.??If?this?is?not?helping?she?can?try?D-[place] Medications: New nitrofurantoin macrocrystal 100 mg PO BID 7 days 14 caps 1RF Changed From semaglutide (Ozempic) 0.5 mg (0.736 mL) subcut QWEEK 12 weeks 9 mL 4RF To semaglutide 1 mg (0.75 mL) subcut QWEEK 12 weeks 9 mL 4RF
[2024-09-16 11:35] VITALS: BP 110/62; PULSE 80; RESP 14; TEMP 36.9; O2SAT 98; BMI 24.0
--- OUTSIDE RECORDS SUMMARY | 2024-09-16 12:44 | XMS_ITS | Continuity of Care Document ---
Author Organization [facility] Address [address] [place] [address] Phone Care Team Providers Care Wire Winding Machine Tender Name Role Phone Deedee Betancourt MD Unavailable [...] Diagnoses Date Provider Providers Copied on Encounter [facility], [address], [place], [place], [id number], tel:[phone] [facility] No Information Serafin Mark. [address], [address], [place], [id number], [place]. tel:[phone] [facility], [address], [place], [id number], tel:[phone] [facility] No Information Serafin Mark. [address], [address], [place], [place], [id number], [place]. tel:[phone] [facility], [address], [place], [place], [id number], tel:[phone] [facility] No Information Serafin Mark. [address], [address], [place], [id number], . tel:[phone] Family History Family Member Type Diagnosis Age At Onset Father Problem (finding) GOOD Mother Problem (finding) GOOD Payers Payer name Insurance type Covered libertarian ID Authoriza tion(s) No Information Social History [...]
== END 2024-09-16 12:17 | disposition home or self-care (01) ==
LOC: HO.HMCFM 11:08
PROVIDERS: PCP Family Medicine; Visit Provider Family Medicine
DX: E11.9 Type 2 diabetes mellitus without complications (principal); N30.00 Acute cystitis without hematuria

== ENCOUNTER → 2024-09-16 11:07 | Outpatient (BNVA) | payer OTHER, SELFPAY | PROVIDERS: PCP Family Medicine; Visit Provider Family Medicine | DX: E11.9 Type 2 diabetes mellitus without complications (principal); N30.00 Acute cystitis without hematuria; Z79.84 Long term (current) use of oral hypoglycemic drugs | CPT/HCPCS: 96127; 99212 ==

== ENCOUNTER 2024-11-07 13:08 | Outpatient (AMB) | payer OTHER, SELFPAY ==
--- OUTSIDE RECORDS SUMMARY | 2024-11-07 13:14 | XMS_ITS | Continuity of Care Document ---
Author Organization [facility] Address [address] [place] [address] Phone Care Team Providers Care Wire Turning Machine Operator Name Role Phone Deedee Betancourt MD Unavailable [...] Diagnoses Date Provider Providers Copied on Encounter [facility], [address], [place], [place], [id number], tel:[phone] [facility] IR No Information Serafin Mark. [address], [address], [place], [id number], [place]. tel:[phone] [facility], [address], [place], [id number], tel:[phone] [facility] No Information Serafin Mark. [address], [address], [place], [place], [id number], [place]. tel:[phone] [facility], [address], [place], [place], [id number], tel:[phone] [facility] No Information Serafin Mark. [address], [address], [place], [address], . tel:[phone] Family History Family Member Type Diagnosis Age At Onset Father Problem (finding) GOOD Mother Problem (finding) GOOD Payers Payer name Insurance type Covered republican ID Authoriza tion(s) No Information Social History [...]
--- NOTE | 2024-11-07 13:37 | MHC.OFFVIS ---
Vital Signs 11/07/24 13:38 Height 5 ft 3 in Weight 134 lb 0.657 oz BMI 23.7 BP 112/58 L Blood Pressure Location Rt brachial Position Sitting Pulse 75 Pulse Source Pulse Oximeter Pulse Oximetry (%) 98 Oxygen Delivery Method Room Air Intake Visit Reasons: 8 mo follow up Intake Note: Patient 7 month followup for Cavernous hemangioma of liver. Patient cc:None Allergies shellfish derived Adverse Reaction (Mild, Verified 11/07/24 13:38) Hives Medication List - Last Reconciled 11/07/24 by Jasmina Mueller MD albuterol sulfate 90 mcg/actuation 1 puff inhalation Q4H PRN ergocalciferol (vitamin D2) 1,250 mcg PO QWEEK 1 month famotidine 20 mg PO BID 90 days metformin 500 mg PO DAILY 90 days nitrofurantoin macrocrystal 100 mg PO BID 7 days semaglutide 1 mg (0.75 mL) subcut QWEEK 12 weeks HPI HPI 8 mo follow up: Details: GI clinic visit for this 64 YF for evaluation of elevated LFTs and colon polyps. Pt reports a hx of pre diabetes, gallstones, suspected insulin resistance, NAFL, hepatic steatosis, elevated alkaline phosphatase and large cavernous hemangiomas in the liver She has a history of breast and uterine cancer Outside labs showed elevated glucose, AP, CRP and borderline increase in Insulin and Hb A1C TODAY'S VISIT: Intentional wt loss of 10 lbs GERD symptoms controlled with Famotidine and would like to try taking it at bedtime - once a day follow up for Cavernous hemangioma of liver Denies symptoms of abdominal pain. Thinks she has lactose intolerance and switched to Lactaid milk Takes Famotidine twice a day with adequate relief of heartburn Colonoscopy results reviewed. Noted abdominal pain for a few days after the procedure and continues to note brief twinges of pain 1-2 times a week lasting for a few seconds. Had breast cancer in 2010 and was treated with surgery followed by XRT PAST VISITS: Pt was seeing [facility] (Dr Maher) and was treated for leaky gut. Stopped sugars, dairy and gluten from 01/2022 to 05/2022 and lost 5 lbs without improvement in labs She was started on metformin Pt is 3 years over due for a colonoscopy (last colonoscopy was in 2014) Pt is a breast cancer survivor - diagnosed in 2011 (4 surgeries for the breast)Diagnosed with uterine cancer 5 yrs later. Elevated LFTs for several yrs (2011) and diagnosed with DIETZ and Has gained 25 lbs and notes burning sensation in the chest and bloating. Denies acid regurgitation or dysphagia Has been working out Patient denies symptoms of nausea, vomiting.? Denies recent change in bowel habits, constipation, black stools or rectal bleeding. Sometimes has softer stools - 1-2 times a day, Patient denies major cardiac or pulmonary problems, loud snoring or sleep apnea. Mild snoring. Barely drink - 1/2 glass of wine /week Denies smoking. Denies problems with anesthesia in the past. Denies being on chronic anticoagulation. Patient denies known family history of colon polyps, colon cancer or other GI malignancies. 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 LFTs showed normal LFTs except mild increase in alkaline phosphatase to 141, GGT was normal at 29 03/2022 AP increased to 157 (normal 35 - 104)MADY was negative Vitamin D was 40.6 Ferritin 182 IMAGING STUDIES:? 08/2022 abd us showed: Several hypoechoic liver lesions measuring up to 5.3 cm in the right hepatic lobe, incompletely characterized sonographically. Recommend further evaluation with contrast enhanced MR abdomen. ? Cholelithiasis without evidence of acute cholecystitis. ? A 1 cm echogenic avascular splenic lesion, possibly hemangioma. Attention on follow-up MR, although this may remain too small to definitively characterize. ? 2 circumscribed echogenic left renal lesions which may reflect smallangiomyolipomas. ? ENDOSCOPIC STUDIES: 09/19/22 EGD AND COLON SHOWED: Endoscopy Findings: STOMACH: Mild diffuse gastric erythema with a few linear erosions in the antrum. Biopsies were obtained. DUODENUM: Normal - biopsied to check for celiac sprue Colonoscopy Findings: Three large sized polyps removed Moderate diverticulosis seen in the sigmoid colon Moderate hemorrhoids on retroflexed exam. Plan: Repeat Colonoscopy interval based on path results - in 6 months to check? polypectomy site if polyps are adenomatous and 5 years if polyps are hyperplastic (due to a hx of colon polyps). PAST EGD/COLONOSCOPY:03/2015 Pt had an EGD and Colon in [facility]: EGD was normal A single 6 mm flat adenomatous polyp was removed from the ascending colon. Hemorrhoids were detected. Repeat colonoscopy was advised in 5 years. PAST GI HISTORY BY REVIEW OF MEDICAL RECORDS: Outside labs were reviewed [facility] Medical History Type 2 diabetes mellitus Asthma Skin cancer Uterine cancer Breast cancer Back pain Surgical History History of esophagogastroduodenoscopy (EGD) H/O colonoscopy H/O: hysterectomy History of lumpectomy of left breast Family History Mother Non-Hodgkin lymphoma Maternal Aunt Stomach cancer Maternal Uncle Bladder cancer Social History Household Members: Spouse Housing: House Alcohol intake: former Patient Tobacco Use Status: Never used Tobacco e-Cigarette/Vaping Use: Never Used Second Hand Smoke Exposure: No service: No Current occupational status: retired Current occupational exposures/hazards: No Cognitive needs: No Hearing needs: No Vision needs: No Review of Systems Const All systems reviewed & are unremarkable except as noted in HPI and below Physical Exam Vital Signs: Last Vital Signs Pulse 75 11/07/24 13:38 BP 112/58 L 11/07/24 13:38 Pulse Ox 98 11/07/24 13:38 Oxygen Delivery Method Room Air 11/07/24 13:38 BMI result Body Mass Index 23.7 Const General: healthy appearing, no acute distress and other (pleasant) Nutritional Appearance: average body habitus Orientation/consciousness: patient oriented x3 Limitations: no limitations HEENT Head: Yes normal to inspection Ears: hearing grossly normal bilaterally Mouth: Normal oral and palatal mucosa present Eyes Sclerae: sclerae normal Pupils: Equal, round and reactive pupils present Neck Neck: Yes normal visual inspection Chest Chest palpation & inspection: normal inspection of the chest Resp Effort & Inspection: normal respiratory effort Auscultation: clear to auscultation bilaterally Cardio Palpation: normal PMI Rate: regular rate Rhythm: regular rhythm Heart sounds: S1 normal heart sound present, S2 normal heart sound present and no murmurs GI Palpation (GI): Soft to palpation, nontender and No hepatosplenomegaly present Auscultation: normal bowel sounds Rectal Exam - Female: deferred Skin General skin exam: no rashes or lesions noted Neuro General: patient oriented x3, gait normal and moves all extremities Cranial nerves: Yes Equal, round and reactive pupils present Psych Appearance: grossly normal Mental Status: mental status grossly normal Assessment & Plan Assessment & Plan (1) Cavernous hemangioma of liver: Code(s): D18.03 - Hemangioma of intra-abdominal structures Category: Medical (2) History of colon polyps: Comment: 09/2022 colonoscopy was performed and three large sessile serrated polyps were removed. Repeat colonoscopy scheduled on 04/14/23 to check polypectomy sites in the ascending and transverse colon Code(s): Z86.010 - Personal history of colon polyps Category: Medical Plan 64 YF with pre diabetes, gallstones, suspected insulin resistance, NAFL, hepatic steatosis, elevated alkaline phosphatase and large cavernous hemangiomas in the liver referred to GI for evaluation of elevated LFTs (since 2011) and to schedule a colonoscopy (fu of a small adenomatous colon polyp). Isolated elevation of ALK P can be due to PBC, PSC, related to medications or from non-hepatic source. Pt reports burning sensation in the chest and bloating - will check for celiac sprue Pt was advised repeat labs. Start famotidine 20 mg at bedtime for upper GI symptoms. 09/2022 upper endoscopy and colonoscopy were performed and results as noted above Three large sessile serrated polyps were removed during colonoscopy 08/2023 Repeat colonoscopy was performed to check polypectomy sites in the ascending and transverse colon - findings as noted above 10/05/23 Colonoscopy results reviewed. Noted abdominal pain for a few days after the procedure and continues to note brief twinges of pain 1-2 times a week lasting for a few seconds. FU in 5 months with repeat labs 02/29/24 Takes Famotidine twice a day with adequate relief of heartburn 11/07/24 doing well - no GI symptoms. Pt advised to schedule surveillance colonoscopy next year since she had three large polyps removed during colonoscopy in 2022. FU in 8 months - FU of GERD, colon polyps and elevated LFTs FROM UPTODATE: In patients with intrahepatic cholestasis, antimitochondrial antibodies (AMA), antinuclear antibodies, and antismooth muscle antibodies should be checked. If present, AMA are highly suggestive of PBC, and a liver biopsy may be considered to confirm the diagnosis. If AMA are absent, additional testing includes: ?MRCP to look for evidence of primary sclerosing cholangitis ?Testing for hepatitis A, B, C, and E ?Testing for Nader-Wren virus and cytomegalovirus If the above tests are negative and the alkaline phosphatase is persistently more than two times the upper limit of normal for more than six months, we obtain a liver biopsy. A liver biopsy may reveal evidence of an infiltrative disease (eg, sarcoidosis, malignancy) or other causes of cholestasis, such as vanishing bile duct syndrome and idiopathic adulthood bile ductopenia. If the alkaline phosphatase is less than two times the upper limit of normal, all of the other liver biochemical tests are normal, and the patient is asymptomatic, we suggest observation alone, since further testing is unlikely to influence management Medications: Refilled famotidine 20 mg PO BID 90 days 180 tabs 1RF K21.9 - Gastro-esophageal reflux disease without esophagitis Coding Level of Care Code Est Pt Level 3 (69246) Diagnoses Cavernous hemangioma of liver D18.03 History of colon polyps Z86.010 Time Spent (min) 15
[2024-11-07 13:38] VITALS: BP 112/58; PULSE 75; O2SAT 98; BMI 23.7
== END 2024-11-07 14:25 | disposition home or self-care (01) ==
LOC: HO.HGI 13:09
PROVIDERS: PCP Family Medicine; Visit Provider Internal Medicine Gastroenterology
DX: D18.03 Hemangioma of intra-abdominal structures (principal); Z86.0100 Personal history of colon polyps, unspecified
CPT/HCPCS: 99213

== ENCOUNTER → 2024-11-07 13:08 | Outpatient (BNVA) | payer OTHER, SELFPAY | PROVIDERS: PCP Family Medicine; Visit Provider Internal Medicine Gastroenterology | DX: K21.9 Gastro-esophageal reflux disease without esophagitis (principal); D18.03 Hemangioma of intra-abdominal structures; Z86.0100 Personal history of colon polyps, unspecified | CPT/HCPCS: 99212 ==

== ENCOUNTER 2024-12-18 10:26 | Outpatient (AMB) | payer OTHER, SELFPAY ==
--- NOTE | 2024-12-18 11:01 | A.OFFPC_ITS ---
Vital Signs 12/18/24 11:02 Height 5 ft 3 in Weight 133 lb BMI 23.6 BP 100/60 Blood Pressure Location Rt brachial Position Sitting Respiration 14 Pulse 78 Pulse Source Pulse Oximeter Temp 97.9 F Temp Source Oral Pulse Oximetry (%) 98 Oxygen Delivery Method Room Air Intake Visit Reasons: f/u diabetes Intake Note: patient is scheduled for dm follow up Event Security Officer Required: No Allergies shellfish derived Adverse Reaction (Mild, Verified 12/18/24 11:02) Hives Medication List - Last Reconciled 12/18/24 by Edgar Dotson MD albuterol sulfate 90 mcg/actuation 1 puff inhalation Q4H PRN ergocalciferol (vitamin D2) 1,250 mcg PO QWEEK 1 month famotidine 20 mg PO BID 90 days metformin 500 mg PO DAILY 90 days nitrofurantoin macrocrystal 100 mg PO BID 7 days semaglutide 1 mg (0.75 mL) subcut QWEEK 12 weeks Tobacco use date assessed: 03/14/24 Dental Screening Dental Screen Date: 03/14/24 HPI f/u diabetes HPI Details 64 y/o female presents to f/u diabetes, weight loss and her Ozempic. Had increased ozempic from 0.5 to 1.0mg weekly. Last A1c 09/16/24 5.1%. She is on ozempic, semaglutide 1mg. PFSH Medical History Type 2 diabetes mellitus Asthma Skin cancer Uterine cancer Breast cancer Back pain Surgical History History of esophagogastroduodenoscopy (EGD) H/O colonoscopy H/O: hysterectomy History of lumpectomy of left breast Family History Mother Non-Hodgkin lymphoma Maternal Aunt Stomach cancer Maternal Uncle Bladder cancer Social History Household Members: Spouse Housing: House Alcohol intake: former Patient Tobacco Use Status: Never used Tobacco e-Cigarette/Vaping Use: Never Used Second Hand Smoke Exposure: No service: No Current occupational status: retired Current occupational exposures/hazards: No Cognitive needs: No Hearing needs: No Vision needs: No Questionnaire Thrive Questionnaire Date Thrive assessed: 09/09/24 I am a: Patient What is your living situation today?: I have a steady place to live Within the past 12 months, did the food you bought not last and you didn't have the money to get more?: Never true Within the past 12 months, did you worry whether your food would run out before you got money to buy more?: Never true Do you have trouble paying for medicines?: No Do you have trouble getting transportation to medical appointments?: No Do you have trouble paying your heating and electricity bill?: No Do you have trouble taking care of your child, family member or friend?: No Do you have trouble with day-to-day activities such as bathing, preparing meals, shopping, managing finances, etc.?: No Are you currently unemployed and looking for a job?: No Are you interested in more education?: No Please select the resources that you would like help with: None Currently or been in a relationship where the following occur: No concerns reported THRIVE Score: 0 AUDIT C Alcohol Use Questionnaire (AUDIT-C) 2. How many drinks containing alcohol do you have on a typical day when you are drinking?: 1 or 2 Total Score: 0 JUDY-7 AMB Questionnaire JUDY-7 Date JUDY - 7 assessed: 09/16/24 Source: Developed by Drs. Silverio Dooley, Yani Hull, Adonis Umanzor and colleagues, with an educational emma from [employer]. Review of Systems Const Denies chills, Denies fatigue, Denies fever(s), Denies headache(s) and Denies weakness ENT Denies dizziness and Denies headache(s) Card Denies dyspnea Resp Denies cough, Denies dyspnea, Denies wheezing and Denies other (shortness of breath) Musc Denies numbness and Denies tingling Neuro Denies dizziness, Denies headache(s), Denies numbness, Denies tingling and Denies weakness Psych Denies anxiety and Denies depression Endo Denies fatigue Aller/Immun Denies wheezing Physical exam (Primary Care) Vital Signs: Last Vital Signs Temp 97.9 F 12/18/24 11:02 Pulse 78 12/18/24 11:02 Resp 14 12/18/24 11:02 BP 100/60 12/18/24 11:02 Pulse Ox 98 07/02/25 11:02 Oxygen Delivery Method Room Air 12/18/24 11:02 BMI result Body Mass Index 23.6 Tobacco/Smoking Status: Tobacco use Status Tobacco use date assessed 03/14/24 12/18/24 11:07 Patient Tobacco Use Status Never used Tobacco 12/18/24 11:07 e-Cigarette/Vaping Use Never Used 12/18/24 11:07 Thrive Assessment: Date of Thrive Assessment Date Thrive assessed 09/09/24 12/18/24 11:07 Currently or been in a relationship where the following occur: No concerns reported Const General: well developed; No acute distress Nutritional Appearance: well nourished Orientation/consciousness: patient oriented x3 HENMT Head: Yes normocephalic and Yes atraumatic Eyes General: appearance normal, both eyes and all related structures Pupils: Equal, round and reactive pupils present EOM: EOMs intact bilaterally Resp Effort & Inspection: normal respiratory effort Auscultation: clear to auscultation bilaterally Cardio Rate: regular rate Rhythm: regular rhythm Heart sounds: S1 normal heart sound present, S2 normal heart sound present, no gallops, no murmurs and no rubs Neuro General: patient oriented x3 and gait normal Cranial nerves: Yes Equal, round and reactive pupils present Psych Affect: normal affect Coding Level of Care Code Est Pt Level 3 (43182) Diagnoses Type 2 diabetes mellitus E11.9 Assessment & Plan Assessment & Plan (1) Type 2 diabetes mellitus: Code(s): E11.9 - Type 2 diabetes mellitus without complications Category: Medical Plan: Had?just?increased?her Ozempic?at?last?visit.??She?is?only?just?received? the?increased?dose?last?week?but?has?tolerated?it. A1c?5.3%.??Good?control.??Goal?is?less?than?7% Also?taking?metformin?and?tolerating?this. Continue?current?medication?regimen She?is?up-to-date?wi th?her?diabetic?eye?exam?which?was?performed?in?July?and?showed?no?retinopat hy.
[2024-12-18 11:02] VITALS: BP 100/60; PULSE 78; RESP 14; TEMP 36.6; O2SAT 98; BMI 23.6
== END 2024-12-18 11:46 | disposition home or self-care (01) ==
LOC: HO.HMCFM 10:27
PROVIDERS: PCP Family Medicine; Visit Provider Family Medicine
DX: E11.9 Type 2 diabetes mellitus without complications (principal)

== ENCOUNTER → 2024-12-18 10:26 | Outpatient (BNVA) | payer OTHER, SELFPAY | PROVIDERS: PCP Family Medicine; Visit Provider Family Medicine | DX: E11.9 Type 2 diabetes mellitus without complications (principal) | CPT/HCPCS: 99212 ==

== ENCOUNTER 2024-12-31 15:09 | Outpatient (REF) | payer OTHER, SELFPAY ==
--- OUTSIDE RECORDS SUMMARY | 2002-08-29 04:51 | XMS_ITS | Continuity of Care Document ---
Author Organization [facility] Address [address] [place] [address] Phone Care Team Providers Care Swimming Coach Or Instructor Name Role Phone Deedee Betancourt MD Unavailable [...] Diagnoses Date Provider Providers Copied on Encounter [facility], [address], [place], [place], [id number], tel:[phone] [facility] No Information Serafin Mark. [address], [address], [place], [address], [place]. tel:[phone] [facility], [address], [place], [id number], tel:[phone] [facility] No Information Serafin Mark. [address], [address], [place], [place], [id number], [place]. tel:[phone] [facility], [address], [place], [place], [id number], tel:[phone] [facility] No Information Serafin Mark. [address], [address], [place], [id number], . tel:[phone] Family History Family Member Type Diagnosis Age [...]
--- OUTSIDE RECORDS SUMMARY | 2024-12-31 16:22 | XMS_ITS | Patient Health Record ---
Author Organization [facility] Address [address] [place] [address] Care Team Providers Care Cardio Tech Name Role Phone Elizabeth Morris Unavailable [phone] Reason For Referral No Information Problems Problem Type SNOMED Code ICD Code Onset Dates Problem Status W/U Status Risk Notes Problem Breast Cancer (C50.919) 09/17/2018 Active confirmed Plan Of Treatment No Information Medical (General) History Surgical History Surgery Date(Month/Year) Breast Surgery 03/03/2015 EGD Colonoscopy 01/15/2016 None Reported 03/03/2015
== END 2024-12-31 15:10 | disposition home or self-care (01) ==
LOC: HO.MAMMO 15:09
PROVIDERS: PCP Family Medicine; Visit Provider Family Medicine
DX: Z12.31 Encounter for screening mammogram for malignant neoplasm of breast (principal)
CPT/HCPCS: 77063; 77067

== ENCOUNTER → 2024-12-31 15:30 | Outpatient (BNV) | payer OTHER, SELFPAY | PROVIDERS: PCP Family Medicine; Visit Provider Radiology Body Imaging | DX: Z12.31 Encounter for screening mammogram for malignant neoplasm of breast (principal) | CPT/HCPCS: 77063; 77067 ==

== ENCOUNTER 2025-03-21 05:58 | Outpatient (REF) | payer OTHER, SELFPAY ==
--- OUTSIDE RECORDS SUMMARY | 2002-08-29 04:51 | XMS_ITS | Continuity of Care Document ---
Author Organization [facility] Address [address] [place] [address] Phone Care Team Providers Care Hand Gluer And Slicer Name Role Phone Deedee Betancourt MD Unavailable Unavailable Medications Medication Instructions Dosage Effective Dates (start - stop) Status Comments Ortho-Novum (21) 0.5/0.75/1 mg-35 mcg Tab as directed - Active DECONGESTANT TABLET TABLET Take one tablet by mouth two times per day - Active Advance Directives Directive Yes / No Effective Date File Name No Information Encounters Encounter Description Practice Location Reason(s) For Visit Diagnoses Date Provider Providers Copied on Encounter [facility], [address], [place], [place], [id number], tel:[phone] [facility] No Information Serafin Mark. [address], [address], [place], [id number], [place]. tel:[phone] [facility], [address], [place], [id number], tel:[phone] [facility] No Information Serafin Mark. [address], [address], [place], [place], [id number], [place]. tel:[phone] [facility], [address], [place], [place], [id number], tel:[phone] [facility] No Information Serafin Mark. [address], [address], [place], [address], . tel:[phone] Family History Family Member Type Diagnosis Age At Onset Father Problem (finding) GOOD Mother Problem (finding) GOOD Payers Payer name Insurance type Covered constitution party ID Authoriza tion(s) No Information Social History Type Description Quantity Date Captured Comments Sex Female Smoking Status No Information Chief Complaint And Reason For Visit No Information Reason For Referral Reason For Referral No Information History Of Present Illness Encounter Date Complaint History Of Prese nt Illness No Information Functional Status Date Functional Assessmen t No Information Instructions Date Instruction Additional Infor mation No Information Assessments Type Assessment Date No Information Patient Care Teams Name Effective Dates (start - stop) Status Members No Information
[2025-03-21 06:15] LABS: MANUAL DIFF FLAG NO
[2025-03-21 07:39] LABS: Hematocrit 40.6 % (37.0-47.0); Hemoglobin 13.6 g/dl (12.0-16.0); Imm Gran Abs Auto 0.02 X10*3/uL (0.00-0.03); Imm Gran Pct Auto 0.2 % (0.0-0.4); Lymphocytes Absolute Auto 2.6 X10*3/uL (1.2-4.9); Mean Corpuscular HGB Conc 33.5 g/dl (31.0-35.0); Mean Corpuscular Hemoglobin 30.6 pg (27.0-33.0); Mean Corpuscular Volume 91.2 fL (80.0-98.0); NRBC Abs Auto 0.000 X10*3/uL (0.0-0.012); NRBC Pct Auto 0.0 /100WBC (0.0-0.2); Platelet Count 283 X10*3/uL (160-400); Red Blood Count 4.45 X10*6/uL (4.20-5.50); White Blood Count 8.3 X10*3/uL (4.8-10.8)
[2025-03-21 07:47] LABS: Appearance Urine Clear; Glucose Urine UA Negative (Negative); PH 6.5 (5.0-9.0); Specific Gravity - Urine 1.015 (1.005-1.025); UMIC TRIGGER UACC YES
[2025-03-21 08:03] LABS: UACC Culture Trigger YES
[2025-03-21 08:15] LABS: Alanine Aminotransferase 15 U/L (0-31); Albumin Level 4.6 g/dL (3.5-5.0); Alkaline Phosphatase 112 U/L (39-117); Anion Gap 10 (12-20); Aspartate Amino Transferase 24 U/L (5-31); Blood Urea Nitrogen 13 mg/dL (9-16); Calcium 9.6 mg/dL (8.4-10.2); Carbon Dioxide 29 mmol/L (22-29); Chloride 106 mmol/L (96-108); Cholesterol 202 mg/dL (<200); Estimated Glomerular Filt Rate > 60; HDL Cholesterol 51 mg/dL (>40); Potassium 4.4 mmol/L (3.3-5.1); Sodium 141 mmol/L (135-145); Total Protein 6.6 g/dL (6.5-8.0); Triglycerides 194 mg/dL (<150)
== END 2025-03-21 05:59 | disposition home or self-care (01) ==
LOC: HO.LAB 05:58
PROVIDERS: PCP Family Medicine; Visit Provider Family Medicine
DX: Z00.00 Encounter for general adult medical examination without abnormal findings (principal); I10 Essential (primary) hypertension; R73.01 Impaired fasting glucose
CPT/HCPCS: 36415; 80053; 80061; 81001; 82043; 82570; 83036; 84443; 85025; 87086

== ENCOUNTER 2025-03-25 08:36 | Outpatient (AMB) | payer OTHER, SELFPAY ==
--- OUTSIDE RECORDS SUMMARY | 2002-08-29 04:51 | XMS_ITS | Continuity of Care Document ---
Author Organization [facility] Address [address] [place] [address] Phone Care Team Providers Care Shipping Specialist Name Role Phone Deedee Betancourt MD Unavailable [...] Diagnoses Date Provider Providers Copied on Encounter [facility], [address], [place], [place], [id number], tel:[phone] [facility] No Information Serafin Mark. [address], [address], [place], [id number], [place]. tel:[phone] [facility], [address], [place], [id number], tel:[phone] [facility] No Information Serafin Mark. [address], [address], [place], [place], [address], [place]. tel:[phone] [facility], [address], [place], [place], [id number], tel:[phone] [facility] No Information Serafin Mark. [address], [address], [place], [address], . tel:[phone] Family History Family Member Type Diagnosis Age At Onset Father Problem (finding) GOOD Mother Problem (finding) GOOD Payers Payer name Insurance type Covered green party ID Authoriza tion(s) No Information Social [...]
--- NOTE | 2025-03-25 09:07 | MHC.PC.OV ---
Vital Signs 03/25/25 09:12 Height 5 ft 3 in Weight 126 lb 6 oz BMI 22.4 BP 100/68 Blood Pressure Location Rt brachial Position Sitting Respiration 14 Pulse 66 Pulse Source Pulse Oximeter Temp 97.4 F Temp Source Temporal Artery Scan Pulse Oximetry (%) 93 Oxygen Delivery Method Room Air Intake Visit Reasons: annual Intake Note: Aviva presents in the office today for her annual physical. Post menopausal: Yes Allergies shellfish derived Adverse Reaction (Mild, Verified 03/25/25 09:10) Hives Medication List - Last Reconciled 03/25/25 by Edgar Dotson MD albuterol sulfate 90 mcg/actuation 1 puff inhalation Q4H PRN ergocalciferol (vitamin D2) 1,250 mcg PO QWEEK 1 month famotidine 20 mg PO BID 90 days metformin 500 mg PO DAILY 90 days nitrofurantoin macrocrystal 100 mg PO BID 7 days semaglutide 1 mg (0.75 mL) subcut QWEEK 12 weeks Tobacco use date assessed: 03/25/25 Dental Screening Dental Screen Date: 03/25/25 Did you have a dental visit in the last 12 months?: Yes Did you have a dental problem in the last 6 months where you did not have access to dental care?: No Was dental information given to patient?: Patient has dentist HPI annual HPI Details 65 y/o female presents for a CPE with f/u labs and health maintenance. Labs drawn 03/21/25. Reviewed labs with pt. Triglycerides 194. TC 202. LDL 113. HDL 51. A1c 5.0%. She is on semaglutide, metformin 500mg daily. She sees her eye doctor once a year for a diabetic eye exam. Prior bone density test showed osteopenia. HPI Comments History of Present Illness Details Documentation assistance for Edgar Dotson MD, was provided by Tonio Mason,? Side Framer on 03/25/2025 at 9:34 AM EST. I, Dr. Dotson, have read, observed, and verified documentation. ?? PFSH Medical History Type 2 diabetes mellitus Asthma Skin cancer Uterine cancer Breast cancer Back pain Surgical History History of esophagogastroduodenoscopy (EGD) H/O colonoscopy H/O: hysterectomy History of lumpectomy of left breast Family History Mother Non-Hodgkin lymphoma Maternal Aunt Stomach cancer Maternal Uncle Bladder cancer Social History (Updated 03/25/25 @ 09:12 by Sherry Whiting CMA) Household Members: Spouse Housing: House Alcohol intake: former Patient Tobacco Use Status: Never used Tobacco e-Cigarette/Vaping Use: Never Used Second Hand Smoke Exposure: No service: No Current occupational status: retired Current occupational exposures/hazards: No Cognitive needs: No Hearing needs: No Vision needs: No Questionnaire PHQ-9 Over the last 2 weeks, how often have you been bothered by any of the following problems? 1. Little interest or pleasure in doing things: not at all 2. Feeling down, depressed, or hopeless: not at all 3. Trouble falling or staying asleep, or sleeping too much: not at all 4. Feeling tired or having little energy: not at all 5. Poor appetite or overeating: not at all 6. Feeling bad about yourself - or that you are a failure or have let yourself or your family down: not at all 7. Trouble concentrating on things, such as reading the newspaper or watching television: not at all 8. Moving or speaking so slowly that other people could have noticed. Or the opposite - being so fidgety or restless that you have been moving around a lot more than usual: not at all 9. Thoughts that you would be better off or of hurting yourself in some way: not at all Total score: 0 Depression Screening Interpretation: Negative Depression Screening Done: Yes 62386 - PHQ-9 Billing: Yes Source: Developed by Drs. Silverio Dooley, Yani Hull, Adonis Umanzor and colleagues, with an educational emma from [employer]. Thrive Questionnaire Date Thrive assessed: 03/25/25 I am a: Patient What is your living situation today?: I have a steady place to live Within the past 12 months, did the food you bought not last and you didn't have the money to get more?: Never true Within the past 12 months, did you worry whether your food would run out before you got money to buy more?: Never true Do you have trouble paying for medicines?: No Do you have trouble getting transportation to medical appointments?: No Do you have trouble paying your heating and electricity bill?: No Do you have trouble taking care of your child, family member or friend?: No Do you have trouble with day-to-day activities such as bathing, preparing meals, shopping, managing finances, etc.?: No Are you currently unemployed and looking for a job?: No Are you interested in more education?: No Please select the resources that you would like help with: None Currently or been in a relationship where the following occur: No concerns reported THRIVE Score: 0 AUDIT C Alcohol Use Questionnaire (AUDIT-C) 1. How often do you have a drink containing alcohol?: Never 3. How often do you have six or more drinks on one occasion?: Never Total Score: 0 JUDY-7 AMB Questionnaire JUDY-7 Date JUDY - 7 assessed: 03/25/25 Feeling nervous, anxious, or on edge: 0 = Not at all Not being able to stop or control worryin = Not at all Worrying too much about different things: 0 = Not at all Trouble relaxin = Not at all Being so restless that it is hard to sit still: 0 = Not at all Becoming easily annoyed or irritable: 0 = Not at all Feeling afraid as if something awful might happen: 0 = Not at all Total JUDY-7 score (0-4 normal; 5-9 mild; 10-14 moderate; 15-21 severe): 0 Source: Developed by Drs. Silverio Dooley, Yani Hull, Adonis Umanzor and colleagues, with an educational emma from [employer]. JUDY-7 Assessment Billing JUDY-7 Assessment Tool: JUDY-7 Assessment 62943 Review of Systems Const Denies chills, Denies fatigue, Denies fever(s), Denies headache(s) and Denies weakness Eyes Denies change in vision ENT Denies dizziness, Denies headache(s), Denies hearing loss, Denies nasal congestion, Denies sinus pain, Denies sinus pressure and Denies sore throat Card Denies chest pain, Denies lightheadedness, Denies dyspnea and Denies other (palpitations) Resp Denies cough, Denies dyspnea and Denies wheezing GI Denies abdominal pain, Denies melena, Denies hematochezia, Denies change in bowel habits, Denies dyspepsia and Denies nausea Denies hematuria and Denies dysuria Musc Denies abnormal gait, Denies myalgias, Denies arthralgias, Denies numbness and Denies tingling Skin/Breast Denies rash, Denies unusual bruising and Denies wounds Neuro Denies abnormal gait, Denies dizziness, Denies headache(s), Denies memory loss, Denies numbness, Denies Sensory deficit (Neuro), Denies tingling and Denies weakness Psych Denies anxiety, Denies depression and Denies memory loss Endo Denies cold intolerance, Denies fatigue, Denies heat intolerance, Denies polydipsia and Denies polyuria Angel/Lymph Denies easy bleeding and Denies easy bruising Aller/Immun Denies wheezing Physical exam (Primary Care) Vital Signs: Last Vital Signs Temp 97.4 F 03/25/25 09:12 Pulse 66 03/25/25 09:12 Resp 14 03/25/25 09:12 BP 100/68 03/25/25 09:12 Pulse Ox 93 03/25/25 09:12 Oxygen Delivery Method Room Air 03/25/25 09:12 BMI result Body Mass Index 22.4 Tobacco/Smoking Status: Tobacco use Status Tobacco use date assessed 03/25/25 03/25/25 09:16 Patient Tobacco Use Status Never used Tobacco 03/25/25 09:12 e-Cigarette/Vaping Use Never Used 03/25/25 09:12 PHQ-9: PHQ-9 Score PHQ-9: Total score 0 03/25/25 09:24 Depression Screening Interpretation: Negative Thrive Assessment: Date of Thrive Assessment Date Thrive assessed 03/25/25 03/25/25 09:24 Currently or been in a relationship where the following occur: No concerns reported Const General: no acute distress, well developed, alert and awake Nutritional Appearance: well nourished Orientation/consciousness: patient oriented x3 HENMT Head: Yes normocephalic and Yes atraumatic Ears: hearing grossly normal bilaterally and TM's normal bilaterally General nose exam: Normal external nose present and Normal nares present Mouth: Normal oral and palatal mucosa present and moist mucous membranes Teeth and gingiva: dentition normal Throat: Yes posterior oropharynx normal Eyes General: appearance normal, both eyes and all related structures Pupils: Equal, round and reactive pupils present and Pupil accommodation reflex normal EOM: EOMs intact bilaterally Neck Neck: Yes normal visual inspection, Yes no lymphadenopathy and Yes trachea midline Thyroid: Thyroid normal Carotids: no bruits Lymphatic: no lymphadenopathy noted Chest Chest palpation & inspection: normal inspection of the chest Resp Effort & Inspection: normal respiratory effort Auscultation: clear to auscultation bilaterally Cardio Rate: regular rate Rhythm: regular rhythm Heart sounds: S1 normal heart sound present, S2 normal heart sound present, no gallops, no murmurs and no rubs Bruits: no abdominal aortic bruits and no carotid bruits GI Palpation (GI): No Abdominal aortic bruit present, Soft to palpation, nontender, No hepatosplenomegaly present and No Rebound tenderness present Auscultation: normal bowel sounds General: Yes no CVA tenderness Back/Spine/Pelvis Back: no CVA tenderness Cervical Spine: cervical ROM normal and No Cervical spine tenderness Thoracic/Lumbar Spine: thoraco-lumbar ROM normal, No pain with thoraco-lumbar ROM, No thoracic spinal tenderness and No lumbar spinal tenderness Skin Lesions: no lesions Rashes: no rashes Trauma: no lacerations or abrasions Wounds: no wounds Nails: normal Neuro General: patient oriented x3 Cranial nerves: Yes Equal, round and reactive pupils present Cognition (Neuro): normal cognition Gait exam (Neuro): Normal gait present Motor exam (neuro): 5/5 motor strength present throughout Sensory Exam: No Sensory deficit (Neuro) Deep tendon reflexes (DTR's): Right patellar reflex intensity grade: 2+ and Left patellar reflex intensity grade: 2+ Extrem General: Yes normal to inspection and No edema Psych Appearance: grossly normal Affect: normal affect Attitude: cooperative Thought process: Normal thought process present Coding Level of Care Code Tele Est Pt Level 3 (84253) Est Pt Prev Care 40-64y(27519) Diagnoses Adult general medical exam Z00.00 Type 2 diabetes mellitus E11.9 Hyperlipidemia E78.5 Screening for colon cancer Z12.11 Screening for cervical cancer Z12.4 Breast cancer screening by mammogram Z12.31 Osteopenia M85.80 Additional Codes JUDY-7 Assessment Billing - JUDY-7 Assessment Tool: JUDY-7 Assessment 89119 ([id number]) PHQ-9 - 30357 - PHQ-9 Billing: Yes ([id number]) Assessment & Plan Assessment & Plan (1) Adult general medical exam: Code(s): Z00.00 - Encounter for general adult medical examination without abnormal findings Category: Medical Plan: 65-year-old female presents for complete physical exam Encouraged healthy diet with active lifestyle and plenty of exercise (2) Type 2 diabetes mellitus: Code(s): E11.9 - Type 2 diabetes mellitus without complications Category: Medical Plan: A1c 5.0% on metformin and semaglutide. Good control. Goal is less than 7.0% Continue current medication Continue diabetic diet She is getting regular eye exams and is up-to-date (3) Hyperlipidemia: Code(s): E78.5 - Hyperlipidemia, unspecified Category: Medical Plan: LDL cholesterol is still above goal less than 100 Continue working on a diet low in saturated fats and cholesterol. Patient notes that she is already eating very healthy diet and her weight is well controlled. She is not getting much exercise currently and I encouraged her to add this. (4) Screening for colon cancer: Code(s): Z12.11 - Encounter for screening for malignant neoplasm of colon Category: Medical Plan: Followed by Dr. Mueller Up-to-date (5) Screening for cervical cancer: Code(s): Z12.4 - Encounter for screening for malignant neoplasm of cervix Category: Medical Plan: Followed by [facility] procurement internshipAnayeli Up-to-date with Pap smears Follow-up as recommended (6) Breast cancer screening by mammogram: Code(s): Z12.31 - Encounter for screening mammogram for malignant neoplasm of breast Category: Medical Plan: Up-to-date with mammogram which showed no evidence of malignancy and recommended annual screening (7) Osteopenia: Code(s): M85.80 - Other specified disorders of bone density and structure, unspecified site Category: Medical Plan Patient notes prior bone density test which showed osteopenia Will check bone density test Encouraged the sources of calcium and vitamin-D Encouraged some weight-bearing exercise Orders: Orders XR DEXA axial skeleton Today M81.0 - Age-related osteoporosis without current pathological fracture Lipid Panel Today E78.5 - Hyperlipidemia, unspecified, Z00.00 - Encounter for general adult medical examination without abnormal findings Comprehensive [place]. Panel Fast Today E78.5 - Hyperlipidemia, unspecified, Z00.00 - Encounter for general adult medical examination without abnormal findings Hemoglobin A1c Today R73.01 - Impaired fasting glucose Microalbumin, Random (w Creat) Today E11.9 - Type 2 diabetes mellitus without complications, I10 - Essential (primary) hypertension Medications: Refilled metformin 500 mg PO DAILY 90 tabs 3RF 90 days E88.81 - Metabolic syndrome and other insulin resistance
[2025-03-25 09:12] VITALS: BP 100/68; PULSE 66; RESP 14; TEMP 36.3; O2SAT 93; BMI 22.4
--- OUTSIDE RECORDS SUMMARY | 2025-03-25 09:12 | XMS_ITS | Patient Health Record ---
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
== END 2025-03-25 09:51 | disposition home or self-care (01) ==
LOC: HO.HMCFM 08:37
PROVIDERS: PCP Family Medicine; Visit Provider Family Medicine
DX: Z00.00 Encounter for general adult medical examination without abnormal findings (principal); E11.69 Type 2 diabetes mellitus with other specified complication; M85.80 Other specified disorders of bone density and structure, unspecified site; E78.5 Hyperlipidemia, unspecified; Z12.11 Encounter for screening for malignant neoplasm of colon; Z12.31 Encounter for screening mammogram for malignant neoplasm of breast

== ENCOUNTER → 2025-03-25 08:36 | Outpatient (BNVA) | payer OTHER, SELFPAY | PROVIDERS: PCP Family Medicine; Visit Provider Family Medicine | DX: Z00.00 Encounter for general adult medical examination without abnormal findings (principal); E11.9 Type 2 diabetes mellitus without complications; E78.5 Hyperlipidemia, unspecified; M81.0 Age-related osteoporosis without current pathological fracture; I10 Essential (primary) hypertension; E88.810 Metabolic syndrome | CPT/HCPCS: 96127; 99396 ==

== ENCOUNTER 2025-06-03 09:43 | Outpatient (AMB) | payer OTHER, SELFPAY ==
--- NOTE | 2025-06-03 09:52 | A.OFFVIS_ITS ---
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 no concerns Information Interpreted: non-clinical & clinical Jewelry Racker: Jewelry Racker Present (Darline) Accompanied by: Self / Same As Patient Allergies shellfish derived Adverse Reaction (Mild, Verified 06/03/25 10:07) Hives Medication List - Last Reconciled 06/03/25 by Arlene Kumar LPN albuterol sulfate 90 mcg/actuation 1 puff inhalation Q4H PRN cranberry conc-ascorbic acid 4,200-20 mg caps PO d-mannose mg PO ergocalciferol (vitamin D2) 1,250 mcg PO QWEEK 1 month famotidine 20 mg PO BID 90 days metformin 500 mg PO DAILY 90 days nitrofurantoin macrocrystal 100 mg PO BID 7 days semaglutide 1 mg (0.75 mL) subcut QWEEK 12 weeks Do you need a note to return to daycare/school/sports/work: No HPI Comments Details: 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 Supervisor Grinding concerns: occasional stress incontinence. History of 2 UTIs this year currently taking: Ugora Defend and Cranberry extracts for prevention. Currently not sexually active. Denies any vaginal dryness or irritation. STI testing offered; she accepts. Attempting to eat a healthy diet with calcium and vitamin D and stays active with exercise. History of hysterectomy-uterine cancer. Last mammogram; 2024. Colonoscopy is UTD. [facility] Medical History Type 2 diabetes mellitus Asthma Skin cancer Uterine cancer Breast cancer Back pain Surgical History History of esophagogastroduodenoscopy (EGD) H/O colonoscopy H/O: hysterectomy History of lumpectomy of left breast Family History (Updated 06/03/25 @ 10:48 by Anayeli Livingston CNM) Mother Non-Hodgkin lymphoma Maternal Aunt Stomach cancer Maternal Uncle Bladder cancer Father Skin cancer Social History Household Members: Spouse Housing: House Alcohol intake: former Patient Tobacco Use Status: Never used Tobacco e-Cigarette/Vaping Use: Never Used Second Hand Smoke Exposure: No service: No Current occupational status: retired Current occupational exposures/hazards: No Cognitive needs: No Hearing needs: No Vision needs: No Female Reproductive History Menstrual Date of menopause: 06/03/16 Total pregnancies: 1 Full term: 1 Number of Living Children: 1 Date of last pap smear: 06/03/16 Date of Mammogram: 12/31/24 Physical Exam Vital Signs: Last Vital Signs BP 102/64 06/03/25 10:06 BMI result Body Mass Index 22.7 Const General: cooperative, healthy appearing, no acute distress, well developed and alert Orientation/consciousness: patient oriented x3 HEENT Head: Yes normal to inspection Eyes General: appearance normal, both eyes and all related structures Neck Neck: Yes normal visual inspection Thyroid: Thyroid normal Chest Chest palpation & inspection: normal inspection of the chest Breast/axilla inspection: normal inspection of the breasts, normal inspection of the axillae and Other (No puckering, dimpling, peau de orange, retraction, discharge, or masses) Breast/axilla palpation: normal palpation of the breasts and normal palpation of the axillae GI Inspection: Yes normal to inspection Palpation (GI): Soft to palpation General: Yes bladder normal to inspection and Yes bladder normal to palpation External Female Exam: normal external appearance and normal appearance of the urethra Speculum Exam - Vagina: normal appearance of the vagina, normal vaginal discharge and vagina atrophic Speculum Exam - Cervix: Cervix absent (Vaginal cuff, no lesions or nodules) Bimanual exam- vagina & uterus: bladder normal to palpation and uterus absent Bimanual Exam- Adnexa, other: no masses and No adnexal tenderness Skin General skin exam: no rashes or lesions noted Neuro General: patient oriented x3 Cognition (Neuro): normal cognition Extrem General: Yes normal to inspection Psych Attitude: cooperative Thought process: Normal thought process present Assessment & Plan Assessment & Plan (1) Encounter for well woman exam with routine gynecological exam: Code(s): Z01.419 - Encounter for gynecological examination (general) (routine) without abnormal findings Category: Medical Plan Discussed: Current recommendations for pap smears per ASCCP guidelines. Breast awareness, periodic self breast exams and yearly mammogram. Maintain a healthy lifestyle, well balanced diet including Calcium 1,200 mg and Vitamin D 600 IU daily, and routine exercise. Vaginal dryness, information on vulvar balm, and other skin care products with the use of the website. Information provided on pelvic floor therapy, advised to send the patient portal if requesting a referral in the future. Patient verbalizes understanding and agrees to the plan of care. She was given opportunity to ask questions and all questions were answered to the best of my ability. RTO in 1 year for annual cabinet finisher exam. This note is constructed using voice recognition software. While every effort has been made to ensure accuracy, electronic transaction implementer errors may have been included. Coding Level of Care Code Est Pt Prev Care 40-64y(17581) Diagnoses Encounter for well woman exam with routine gynecological exam Z01.419
[2025-06-03 10:06] VITALS: BP 102/64; BMI 22.7
--- OUTSIDE RECORDS SUMMARY | 2025-06-03 11:32 | XMS_ITS | Patient Health Record ---
Author Organization [facility] Address [address] [address] Care Team Providers Care Manager Inventory Control Name Role Phone Elizabeth Morris Unavailable [phone] Reason For Referral No Information Social History [...] W/U Status Risk Notes Problem Breast cancer ([id number]) Breast Cancer (C50.919) 09/17/2018 Active confirmed Plan Of Treatment No Information Medical (General) History Surgical History Surgery Date(Month/Year) None Reported 03/03/2015 Breast Surgery 03/03/2015 EGD Colonoscopy 01/15/2016
== END 2025-06-03 10:49 | disposition home or self-care (01) ==
LOC: HO.HWS 09:44
PROVIDERS: PCP Hospitalist; Visit Provider Advanced Practice Midwife
DX: Z01.419 Encounter for gynecological examination (general) (routine) without abnormal findings (principal)
CPT/HCPCS: 99396; 99459

== ENCOUNTER → 2025-06-03 09:43 | Outpatient (BNVA) | payer OTHER, SELFPAY | PROVIDERS: PCP Hospitalist; Visit Provider Advanced Practice Midwife | DX: Z01.419 Encounter for gynecological examination (general) (routine) without abnormal findings (principal); Z71.3 Dietary counseling and surveillance; Z71.82 Exercise counseling; Z68.22 Body mass index [BMI] 22.0-22.9, adult | CPT/HCPCS: 99396 ==